=== PATIENT | female | born 1945 | race Caucasian/White ===

== ENCOUNTER 2020-03-07 10:03 | Day surgery (SDC) | payer MEDICARE, BC ==
[2020-03-05 09:55] VITALS: BMI 32.9
[~2020-03-07 10:03] MED LIST: HYDROmorphone 0.5 MG/0.5 ML SYRINGE IVP PRN; LACTATED RINGERS 1,000 ML IV SCH; Pre Op ABX Message 1 EACH MISC MISCELLANE ONE
[2020-03-07] MEDS ORDERED: LIDOCAINE 1% (10MG/ML) FOR IV START INTRADERMA ONE (10:30)
[2020-03-07] MEDS ORDERED: ONDANSETRON 4 MG/2 ML VIAL ONE (10:37)
[2020-03-07] MEDS ORDERED: DEXAMETHASONE SOD PHOSPHATE 10 MG/ML 1 ML VIAL IV ONE (10:39)
[2020-03-07 10:41] LABS: Basophils % (A) 0 %; Eosinophils # (A) 0.2 k/uL (0-0.7); Eosinophils % (A) 2 %; HCT 43.6 % (34.0-46.0); HGB 14.1 gm/dL (11.4-16.0); Lymphocytes # (A) 1.2 k/uL (1.0-4.8); Lymphocytes % (A) 14 %; MCH 31.3 pg (25.0-35.0); MCHC 32.4 g/dL (31.0-37.0); MCV 96.5 fL (80.0-100.0); Mean Platelet Volume 9.6; Monocytes # (A) 0.5 k/uL (0-1.0); Monocytes % (A) 6 %; Neutrophils # (A) 6.6 k/uL (1.3-7.7); Neutrophils % (A) 76 %; Platelet Count 163 k/uL (150-450); RBC 4.52 m/uL (3.80-5.40); RDW 13.1 % (11.5-15.5); WBC 8.6 k/uL (3.8-10.6)
[2020-03-07 10:54] LABS: African American GFR (CKD) >90 (>60 ml/min/1.73 sqM); Anion Gap 4 mmol/L; Blood Urea Nitrogen 15 mg/dL (7-17); Calcium 9.4 mg/dL (8.4-10.2); Carbon Dioxide 29 mmol/L (22-30); Chloride 106 mmol/L (98-107); Glucose 120 mg/dL (74-99); Non-African American GFR(CKD) 86 (>60 ml/min/1.73 sqM); Potassium 4.1 mmol/L (3.5-5.1); Sodium 139 mmol/L (137-145)
[2020-03-07] MEDS ORDERED: fentaNYL (PF) 50 MCG/ML 2 ML AMP ONE (11:09)
[2020-03-07] MEDS ORDERED: LIDOCAINE 1% INJ 10MG/ML (20 ML MDV) ONE (11:09)
[2020-03-07] MEDS ORDERED: PHENYLEPHRINE-0.9% NACL SYG 1 MG/10 ML SYRINGE ONE (11:09)
[2020-03-07] MEDS ORDERED: METOPROLOL TARTRATE 5 MG/5 ML VIAL IVP ONE (11:09)
[2020-03-07] MEDS ORDERED: HYDROmorphone (PF) 1 MG/ML ONE (11:09)
[2020-03-07] MEDS ORDERED: SUCCINYLCHOLINE CHLORIDE 100 MG/5 ML SYR IV ONE (11:09)
[2020-03-07] MEDS ORDERED: MIDAZOLAM 2 MG/2 ML VIAL ONE (11:09)
[2020-03-07] MEDS ORDERED: PROPOFOL 10 MG/ML 20 ML VIAL IV ONE (11:09)
[2020-03-07] MEDS ORDERED: ceFAZolin 1,000 MG VIAL ONE (11:09)
[2020-03-07] MEDS ORDERED: ePHEDrine SULFATE/0.9% NACL/PF 50 MG/5 ML SYRINGE IV ONE (11:09)
[2020-03-07] MEDS ORDERED: SODIUM CHLORIDE 0.9% 50 ML with ceFAZolin 2,000 MG IV ONE ×2 (11:16)
[2020-03-07 14:05] VITALS: TEMP 97.6
[2020-03-07 14:13] VITALS: RESP 16
[2020-03-07] MEDS ORDERED: HYDROcodone/APAP 10-325MG 1 EACH TAB PO ONE (15:05)
[2020-03-07] MEDS ORDERED: HYDROcodone/APAP 10-325MG 1 EACH TAB ONE (15:09)
[2020-03-07 15:24] VITALS: BP 137/22; PULSE 77
--- NOTE | 2020-03-08 02:54 | OP ---
OPERATIVE REPORT DATE OF SURGERY: March 07, 2020. SURGEON: Maurisio Cho MD PREOPERATIVE DIAGNOSES: 1. 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 2. Personal history of breast cancer. 3. Personal history of failed tissue product/industry consultant reconstruction, bilateral breasts. 4. Nonfunctional left breast tissue product/industry consultant. POSTOPERATIVE DIAGNOSES: 1. Acquired loss of breasts. 2. Personal history of breast cancer. 3. Personal history of bilateral mastectomy. 4. Personal history of bilateral failed tissue product/industry consultant breast reconstruction. 5. Nonfunctional left reconstructed breast tissue product/industry consultant. OPERATIVE PROCEDURES: 1. Removal of nonfunctional left reconstructed breast tissue product/industry consultant. 2. Revision left reconstructed breast. 3. Insertion left breast tissue product/industry consultant for left breast delayed reconstruction and subsequent outpatient expansion. 4. Revision of right reconstructed breast. 5. Insertion of right breast tissue product/industry consultant for delayed right breast reconstruction with subsequent outpatient expansion. 6. Implantation of reconstructive graft for right and left breast reconstruction, 300 square centimeters. 7. Modified rhomboid flap closure right mastectomy site wound, 77 square centimeters. OPERATIVE INDICATIONS: The patient is a 74-year-old female who had mastectomy and reconstructive procedure performed elsewhere over 2 years ago, complicated by postoperative loss of her right breast reconstruction and tissue product/industry consultant that required surgery, which was then complicated by the need for cardiac bypass procedures. The patient got through her complicated problems and recovered from her bypass surgery and was seen in the fall of 2018 for possible breast reconstruction or removal of nonfunctional left breast tissue product/industry consultant, which was still present. Ultimately, the patient decided she wanted reconstruction and then by the time she made this decision the COVID-19 pandemic had occurred and surgery was delayed due to its elective nature and she was then seen in followup in the office once the COVID restrictions had eased and decided she wanted to proceed with surgery. She required preoperative clearance due to multiple coexisting comorbidities and is here today for the surgery. The patient understands her situation is quite complicated in that there are potential risks and complications associated with all surgery, but especially here including hematoma, seroma, wound healing problems, postoperative infection, among others. The patient also understands there is significant deformities of both reconstructive breast that will need to be revised to optimize the result and even place expanders in the simplest fashion today. The patient has requested I perform the surgery. OPERATIVE PROCEDURE SUMMARY: The patient is seen in presurgical area, markings made, procedure reviewed and all questions answered. She was transported back to the operating room where she was placed in supine position. Following induction general tracheal anesthesia, the patient was prepped and draped in usual fashion. The surgery was initiated on the right side first outlining the large mastectomy scar. The scar was very large, thick, indurated and outlined so it could be directly excised. The scar was excised using a 10-blade scalpel, removing the scar tissue, underlying subcutaneous tissue that was also part of the scar. The scar was sent to pathology. This left a large open skin and subcutaneous defect measuring 11 x 7 square centimeters. It could not be directly approximated. This was anticipated preoperatively. The skin and subcutaneous tissue flaps were then elevated off the underlying muscle flap tissue. Extensive dissection was required to accomplish this due to the multiple contour irregularities and scars present. Once this was completed, hemostasis maintained with cautery. The pectoralis major muscle was identified. It was heavily scarred and the muscle flap was re- elevated identifying the lateral border of the muscle and then using cautery to gain entry into the potential plane between the pectoralis major and minor muscle. There was no potential plane at this point. It was scarred and dissection was performed with cautery to separate these layers creating a subpectoral major space. Inferiorly dissection continued to recruit all muscle fibers or fascial fibers where possible for anterior coverage including rectus abdominis muscle and fascia, external abdominal oblique muscle and fascia and lateral serratus anterior muscle and fascia. There were many tears within the tissue layers due to the thinness and scarring, but it was elevated. Hemostasis maintained with cautery. Site was packed open with moistened laparotomy sponges. Attention was turned towards the left side. The scar from the mastectomy was not as thick here. It was outlined in simple elliptical fashion directly excised with 10-blade scalpel and sent to pathology. Subcutaneous tissue was then divided. The muscle fascial layer was identified. Skin and subcutaneous tissue flaps were then elevated off the muscle fascial layer to release contour irregularities caused by heavy scarring from the patient's prior procedures. With this completed, the pectoralis major muscle was more easily identified although somewhat socked in with scar. Lateral border was identified. Incision made in this exposed product/industry consultant. Underneath, the excision was extended along the lateral and then border and inferiorly transversely sufficient size of product/industry consultant could be released. The product/industry consultant cavity was quite contracted. The product/industry consultant itself appeared intact, but had dark staining to it. The cavity was irrigated with saline. There was no blood or granulation tissue or unusual fluid. The cavity was not sufficient size for reconstruction as it had contracted around the product/industry consultant. Re-elevation of the muscle flap was performed with cauterization following the planes created by the prior surgery. Hemostasis maintained with cautery. Once sufficient sized submuscular pocket was created on the left and right side, this portion of surgery stopped. Irrigation was performed. Hemostasis remained excellent. The cavities were sized and minor adjustments made to obtain optimal symmetry. Tissue expanders were opened onto the field. Both expanders measured 500 mL from the Neonode, model 133SMX tissue product/industry consultant, reference number for both devices was [id number]. The serial number for the right-sided device was [id number] and the serial number for the left-sided device was [id number]. It was clear from the dissection, loss of tissue, heavy scarring and thinness of tissue, the patient would require reconstructive grafts at this point. Therefore SurgiMend reconstructive graft was opened on the field, thin and fenestrated, measuring 10 x 15 cm. They were revitalized with room temperature saline. Once ready, the grafts were placed in the reconstructive cavity on the right and left side and sutured just above the planned inframammary crease level on each side to available tissues using interrupted 3-0 Vicryl. This was completed for both sides. Expanders were now opened on the field. Each product/industry consultant was irrigated with saline. All air extracted. Expanders were inserted in the reconstructive cavity. The product/industry consultant stay tabs were secured to the chest wall using interrupted 3-0 Vicryl once each product/industry consultant was optimally positioned. With this completed, the expanders were then filled to a volume of 150 mL with 0.9 normal saline on each side. The SurgiMend was advanced in cephalad fashion essentially creating the inferior sling type reconstruction and the muscle flap advanced caudad overlapping the SurgiMend on each side and then also spanning any gaps where muscle was not present or also buttressing the muscle where extremely thin. The SurgiMend and muscle were then inset to each other using interrupted 3-0 Vicryl. Complete coverage of each product/industry consultant was obtained and 19 round Seb channel drains were inserted in each surgical field and brought out through separate stab incisions in the right and left lateral chest wall and sutured in place with 2-0 Prolene. The left-sided wound closure was relatively simple as there was available tissue in close proximity. The deep dermis was closed using inverted interrupted 4-0 Monocryl and then completed the skin closure with sally. On the right side, there was a significant loss of skin and subcutaneous tissue. It was not possible to directly close this wound. It measured 11 x 7 square centimeters. A modified rhomboid flap was created as there was adjacent redundant tissue. Once the flap was elevated first making incision with 10 blade scalpel and then using cauterization. Once completed, the site was irrigated. Hemostasis was excellent. The flap was inset approximating deep dermis using inverted and interrupted 4-0 Monocryl and then completing the superficial dermal and epidermis closure with salyl. Surgical field cleansed with saline, dried, postoperative bandage was placed using Kerlix squares, secured with paper tape then positioned a size 4 mammary support with additional gauze padding. The drains were connected to closed bulb suction and patent. The estimated blood loss was 100 mL. There were no complications. The final fill for each product/industry consultant was 150 mL bilaterally. The patient was extubated in the operating room, transferred to recovery room in good condition with stable vital signs. There were no complications. MMODL / IJN: [id number] /
== END 2020-03-07 16:05 | disposition home or self-care (01) ==
LOC: OR 10:03
PROVIDERS: ATTEND Plastic Surgery
DX: C50.912 Malignant neoplasm of unspecified site of left female breast (principal); Z45.811 Encounter for adjustment or removal of right breast implant; Z45.812 Encounter for adjustment or removal of left breast implant; L90.5 Scar conditions and fibrosis of skin; I08.0 Rheumatic disorders of both mitral and aortic valves; I11.9 Hypertensive heart disease without heart failure; I48.19 Other persistent atrial fibrillation; E78.2 Mixed hyperlipidemia; I25.10 Atherosclerotic heart disease of native coronary artery without angina pectoris; I73.9 Peripheral vascular disease, unspecified; M19.90 Unspecified osteoarthritis, unspecified site; G62.9 Polyneuropathy, unspecified; J44.9 Chronic obstructive pulmonary disease, unspecified; Z90.13 Acquired absence of bilateral breasts and nipples; Z88.8 Allergy status to other drugs, medicaments and biological substances; Z88.1 Allergy status to other antibiotic agents; Z98.890 Other specified postprocedural states; Z90.710 Acquired absence of both cervix and uterus; Z98.49 Cataract extraction status, unspecified eye; Z87.891 Personal history of nicotine dependence; Z95.2 Presence of prosthetic heart valve; Z86.19 Personal history of other infectious and parasitic diseases; Z95.1 Presence of aortocoronary bypass graft; Z88.5 Allergy status to narcotic agent; Z79.899 Other long term (current) drug therapy; Z79.01 Long term (current) use of anticoagulants; Z79.82 Long term (current) use of aspirin; Z79.810 Long term (current) use of selective estrogen receptor modulators (SERMs); Z79.891 Long term (current) use of opiate analgesic; Z97.2 Presence of dental prosthetic device (complete) (partial); Z90.49 Acquired absence of other specified parts of digestive tract; Z87.898 Personal history of other specified conditions; Z83.3 Family history of diabetes mellitus; Z82.49 Family history of ischemic heart disease and other diseases of the circulatory system; Z82.3 Family history of stroke
CPT/HCPCS: 11971; 19357; C5273; C5274; 80048; 85025; 88305

== ENCOUNTER 2020-12-22 11:29 | Emergency (ER) | payer MEDICARE, BC ==
[2020-12-22 12:20] VITALS: BP 116/72; PULSE 95; RESP 20; TEMP 98.6
--- NOTE | 2020-12-22 12:30 | ED ---
Eye Problem HPI - General Chief complaint: Eye Problems Stated complaint: lt eye injury Time Seen by Provider: 12/22/20 12:24 Source: patient Mode of arrival: wheelchair Limitations: no limitations - History of Present Illness Initial comments: 75-year-old male presents to emergency Department a chief complaint of left eye pain. Patient reports yesterday she was cutting the grass and a small piece of debris went in her left eye. States she was able to wash off any foreign bodies in the eye but now continues to have pain. States there is clear discharge and pain when she blinked and. She denies any periorbital edema or erythema. Does not wear contacts. Tetanus is up-to-date. Denies pain with extraocular movements. - Related Data Home Medications Medication Instructions Recorded Confirmed ALPRAZolam [Xanax] 1 mg PO BID 03/05/20 03/07/20 Anastrozole [Arimidex] 1 mg PO DAILY 03/05/20 03/07/20 Apixaban [Eliquis] 5 mg PO BID 03/05/20 03/07/20 Aspirin [Adult Low Dose Aspirin EC] 81 mg PO DAILY 03/05/20 03/07/20 Atorvastatin [Lipitor] 80 mg PO DAILY 03/05/20 03/07/20 Cholecalciferol [Vitamin D3 (25 1,000 unit PO DAILY 03/05/20 03/07/20 Mcg = 1000 Iu)] Ferrous Sulfate [Feosol] 325 mg PO DAILY 03/05/20 03/07/20 Fish Oil/Dha/Epa [Fish Oil 1,200 1 each PO DAILY 03/05/20 03/07/20 mg Fish Oil] Gabapentin 600 mg PO TID 03/05/20 03/07/20 HYDROcodone/APAP 10-325MG [Kerens 1 tab PO TID 03/05/20 03/07/20 10-325] Metoprolol Tartrate [Lopressor] 25 mg PO BID 03/05/20 03/07/20 Pramipexole Di-HCl [Mirapex] 0.5 mg PO HS 03/05/20 03/07/20 Sertraline HCl [Zoloft] 100 mg PO DAILY 03/05/20 03/07/20 Tiotropium 18 Mcg/Puff [Spiriva] 1 puff INHALATION DAILY PRN 03/05/20 03/07/20 Vitamin C With Zinc 1 tab PO DAILY 03/05/20 03/07/20 Allergies Allergy/AdvReac Type Severity Reaction Status Date / Time morphine Allergy Anaphylaxis Verified 12/22/20 12:20 Review of Systems ROS Statement: Those systems with pertinent positive or pertinent negative responses have been documented in the HPI. ROS Other: All systems not noted in ROS Statement are negative. Past Medical History Past Medical History: Atrial Fibrillation, Cancer, COPD, Hyperlipidemia, Hypertension, Mitral Valve Prolapse (MVP) Additional Past Medical History / Comment(s): lt breast cancer. rt groin blood clot after open heart surgery. periodic limb movement disorder History of Any Multi-Drug Resistant Organisms: MRSA Date of last positivie culture/infection: unknown MDRO Source:: lt chest area Past Surgical History: Bladder Surgery, Breast Surgery, Cholecystectomy, Coronary Bypass/CABG, Hysterectomy, Joint Replacement Additional Past Surgical History / Comment(s): breast augmentation. amadou mastectomy with saline implants amadou and removed, tissue gas pipe layer in place lt breast, (left breast with lymph nodes removed). OPen heart surgery with repair of mitral valve-05/18/19. joint replacment rt knee, cervical laminectomy. amadou cataract surgery, rt eye implant removed and replaced. bladder suspension. le ft leg surgery Past Anesthesia/Blood Transfusion Reactions: Previous Problems w/ Anesthesia Additional Past Anesthesia/Blood Transfusion Reaction / Comment(s): while in surgery leg movement Past Psychological History: Anxiety, Depression Smoking Status: Former smoker Past Alcohol Use History: None Reported Past Drug Use History: Marijuana - Past Family History Sister(s) Additional Family Medical History / Comment(s): 5 sisters all with cancer in their 50's all General Exam Limitations: no limitations General appearance: alert, in no apparent distress Head exam: Present: atraumatic, normocephalic, normal inspection Eye exam: Present: normal appearance, PERRL, EOMI, conjunctival injection (Left eye), other (Negative Real sign. No pain with extra ocular movements. Corneal abrasion noted at 11:00) Pupils: Present: normal accommodation, other (No foreign bodies detected) ENT exam: Present: normal exam, normal oropharynx, mucous membranes moist Neck exam: Present: normal inspection, full ROM. Absent: tenderness, lymphadenopathy Respiratory exam: Present: normal lung sounds bilaterally. Absent: respiratory distress, wheezes Cardiovascular Exam: Present: regular rate, normal rhythm, normal heart sounds Extremities exam: Present: normal inspection, full ROM. Absent: tenderness Back exam: Present: normal inspection, full ROM. Absent: tenderness Neurological exam: Present: alert, oriented X3, normal gait Psychiatric exam: Present: normal affect, normal mood Skin exam: Present: warm, dry, intact, normal color Course Vital Signs 12/22/20 12:17 Temperature 98.6 F Pulse Rate 95 Respiratory 20 Rate Blood Pressure 116/72 O2 Sat by Pulse 96 Oximetry Medical Decision Making - Medical Decision Making 75-year-old female presents to emergency Department with a chief complaint of left eye pain. On Physical examination, she has conjunctival injection. Once lamp exam reveals corneal abrasion at 11:00. Patient will be started on erythromycin. Tetanus is up-to-date. Does not wear contacts. Return parameters discussed patient was understanding and agreeable. Advised to follow-up with an weed eradicator if his symptoms do not improve. Case discussed with Dr. Gaston. Disposition Clinical Impression: Corneal abrasion, left Disposition: HOME SELF-CARE Condition: Stable Instructions (If sedation given, give patient instructions): Abrasion (ED) Additional Instructions: Please return to the Emergency Department if symptoms worsen or any other concerns. Follow up with an weed eradicator if her symptoms not improve. Take prescribed medication as directed. Is patient prescribed a controlled substance at d/c from ED?: No Referrals: Alex Ortega MD [Primary Care Provider] - 1-2 days Nayana Moreira MD [STAFF PHYSICIAN] - 1-2 days Time of Disposition: 13:13
[2020-12-22] MEDS: FLUORESCEIN STRIPS 1 MG STRIP LEFT EYE ONE (12:38)
[2020-12-22] MEDS: PROPARACAINE 0.5% OPHTH DROPS 15 ML BTL RIGHT EYE STA (12:38)
== END 2020-12-22 13:28 | disposition home or self-care (01) ==
LOC: EC 11:29
DX: S05.02XA Injury of conjunctiva and corneal abrasion without foreign body, left eye, initial encounter (principal); E78.5 Hyperlipidemia, unspecified; I10 Essential (primary) hypertension; J44.9 Chronic obstructive pulmonary disease, unspecified; I48.91 Unspecified atrial fibrillation; F32.9 Major depressive disorder, single episode, unspecified; F41.9 Anxiety disorder, unspecified; F12.90 Cannabis use, unspecified, uncomplicated; Z85.3 Personal history of malignant neoplasm of breast; Z87.891 Personal history of nicotine dependence; Z79.01 Long term (current) use of anticoagulants; Z79.82 Long term (current) use of aspirin; Z90.12 Acquired absence of left breast and nipple; Z95.1 Presence of aortocoronary bypass graft; Z79.51 Long term (current) use of inhaled steroids; W25.XXXA Contact with sharp glass, initial encounter
CPT/HCPCS: 99283

== ENCOUNTER → 2021-08-02 | Outpatient (CLI) | payer MEDICARE, BC ==
--- NOTE | 2021-08-03 03:35 | MR ---
EXAMINATION TYPE: MR tspine/lspine wo/w con DATE OF EXAM: 08/02/2021 COMPARISON: None HISTORY: Syrinx T6-T9, mid back pain. CONTRAST: Standard multiplanar, multisequence MRI departmental protocol images were obtained without contrast a nd with 9 mL intravenous Gadavist gadolinium contrast. The thoracic vertebra have normal alignment. There is some degenerative hypertrophic disc changes thr oughout the thoracic spine. There is no compression fracture. There is apparent old fusion surgery at C5-6 anteriorly. There is C4-5 mild disc herniation and spur formation with some spinal stenosis. There is a tiny syrinx in the thoracic spinal cord from T6 to T8. This measures 1 mm. There is no exp ansion. There is no thoracic spinal stenosis. There are small posterior disc bulging at T8-9 and T9-1 0 and T10-11. There is developmentally adequate spinal canal and no spinal stenosis. There is no thoracic paraspinal mass. There is no focal bone destruction. The lumbar vertebrae has fairly normal alignment. There is a few millimeter subluxation at L3-4 witho ut spinal stenosis. There is some degenerative disc space narrowing at L1-2 and L4-5. There is minima l disc bulging at L1-2 posteriorly. There is no significant lumbar spinal stenosis. There is no lumba r paraspinal mass. There is no compression fracture. I see no lumbar bony destructive process. There is no significant lumbar neural foraminal narrowing. Contrast images show no pathologic enhancement. IMPRESSION: There is a small syrinx of the thoracic spinal cord as above. Mild multilevel spondylotic changes. No spinal stenosis. No fracture. No evidence of spinal cord mass.
== END | disposition home or self-care (01) ==
LOC: RADMRIMAIN 14:43
PROVIDERS: ATTEND Physical Medicine & Rehabilitation
DX: M51.24 Other intervertebral disc displacement, thoracic region (principal); M51.36 Other intervertebral disc degeneration, lumbar region; M47.817 Spondylosis without myelopathy or radiculopathy, lumbosacral region; M50.221 Other cervical disc displacement at C4-C5 level
CPT/HCPCS: 72157; 72158; A9585

== ENCOUNTER 2022-10-06 10:44 | Day surgery (SDC) | payer MEDICARE, BC ==
[2022-10-02 11:32] VITALS: BMI 34.6
[~2022-10-06 10:44] MED LIST changes: +ACETAMINOPHEN TAB 500 MG TAB PO PRN; -HYDROmorphone 0.5 MG/0.5 ML SYRINGE IVP PRN; -LACTATED RINGERS 1,000 ML IV SCH; +LIDOCAINE 1% (10MG/ML) FOR IV START INTRADERMA PRN; +MELOXICAM 7.5 MG TAB PO PRN; +MIDAZOLAM 2 MG/2 ML VIAL IV PRN; +ONDANSETRON 4 MG/2 ML VIAL IVP PRN; -Pre Op ABX Message 1 EACH MISC MISCELLANE ONE; +TRANEXAMIC ACID IN NACL,ISO-OS 1,000 MG in SALINE 1 100ML.BAG IVPB PRN; +fentaNYL (PF) 50 MCG/ML 2 ML AMP IVP PRN
[2022-10-06] MEDS: LACTATED RINGERS 1,000 ML IV SCH ×3 (11:35→21:58)
[2022-10-06] MEDS: DEXAMETHASONE SOD PHOSPHATE 4 MG/ML 1 ML VIAL IV ONE ×2 (11:44→18:26)
[2022-10-06 11:48] LABS: Glucose,Whole Blood 108 mg/dL (70-110)
[2022-10-06] MEDS ORDERED: MIDAZOLAM 2 MG/2 ML VIAL IVP ONE (11:48)
[2022-10-06] MEDS ORDERED: NEOSTIGMINE 1 MG/ML 10 ML VIAL ONE (12:37)
[2022-10-06] MEDS ORDERED: TRANEXAMIC ACID IN NACL,ISO-OS 1,000 MG/100 ML BAG ONE (12:37)
[2022-10-06] MEDS ORDERED: GLYCOPYRROLATE 0.2 MG/ML 2 ML VIAL ONE (12:37)
[2022-10-06] MEDS ORDERED: KETAMINE 10 MG/ML 20 ML VIAL ONE (12:37)
[2022-10-06] MEDS ORDERED: LIDOCAINE 2% INJ 20 MG/ML (2 ML VIAL) ONE (12:37)
[2022-10-06] MEDS ORDERED: ROCURONIUM 10 MG/ML (5 ML VIAL) IV ONE (12:37)
[2022-10-06] MEDS ORDERED: PROPOFOL 10 MG/ML 20 ML VIAL IV ONE (12:37)
[2022-10-06] MEDS ORDERED: MIDAZOLAM 2 MG/2 ML VIAL ONE (12:37)
[2022-10-06] MEDS ORDERED: ROPIVACAINE 5 MG/ML 30 ML VIAL ONE (12:37)
[2022-10-06] MEDS ORDERED: fentaNYL (PF) 50 MCG/ML 2 ML AMP ONE (12:37)
[2022-10-06] MEDS ORDERED: SUCCINYLCHOLINE CHLORIDE 200 MG/10 ML VIAL IV ONE (12:37)
[2022-10-06] MEDS ORDERED: ceFAZolin 3,000 MG in SODIUM CHLORIDE 0.9% IRRIGATIO 3,000 ML IRRIGATION ONE (12:39)
--- NOTE | 2022-10-06 12:52 | P.ANPRN ---
Procedure Note - Anesthesia - Nerve Block Performed Left Chaim Single Date of Procedure: 10/06/22 Procedure Start Time: 11:56 Procedure Stop Time: 12:06 Location of Patient: PreOp Indication: Acute Post-Operative Pain, Requested by Surgeon Sedation Type: Sedate with meaningful contact maintained Preparation: Sterile Prep Position: Supine Catheter: None Needle Types: Pajunk Needle Gauge: 21 Ultrasound used to visualize needle placement: Yes Ultrasound used to observe medication spread: Yes Injectate: 0.5% Ropivacaine (see comment for volume) (15 mls) Blood Aspirated: No Pain Paresthesia on Injection Noted: No Resistance on Injection: Normal Image Stored and Saved: Yes Events: Uneventful and Well Tolerated
[2022-10-06] MEDS ORDERED: ROPIVACAINE 1,100 MG, SODIUM CHLORIDE 0.9% 500 ML 330 ML, EMPTY PAIN BALL 1 EACH MISCELLANE PRN ×2 (12:53)
--- NOTE | 2022-10-06 12:53 | P.ANPRN ---
Procedure Note - Anesthesia - Nerve Block Performed Left Adductor Canal Infusion Date of Procedure: 10/06/22 Procedure Start Time: 11:47 Procedure Stop Time: 11:55 Location of Patient: PreOp Indication: Acute Post-Operative Pain, Requested by Surgeon Sedation Type: Sedate with meaningful contact maintained Preparation: Sterile Prep Position: Supine Catheter: Indwelling Needle Types: On-Q Needle Gauge: 21 Ultrasound used to visualize needle placement: Yes Ultrasound used to observe medication spread: Yes Injectate: 0.5% Ropivacaine (see comment for volume) (15 mls) Blood Aspirated: No Pain Paresthesia on Injection Noted: No Resistance on Injection: Normal Image Stored and Saved: Yes Events: Uneventful and Well Tolerated
--- NOTE | 2022-10-06 14:43 | P.OP ---
Date of Procedure: 10/06/22 Procedure(s) Performed: PREOPERATIVE DIAGNOSIS: Left knee severe osteoarthritis genu varum POSTOPERATIVE DIAGNOSIS: Left knee severe osteoarthritis with genu varum OPERATION: Left knee cemented total replacement arthroplasty, robotic-assisted using Lam system from [employer]. ANESTHESIA: General and regional with IPAC and ACB ESTIMATED BLOOD LOSS: 100 ml. SLAG MOTOR OPERATOR: Misti Ford PA-C (assistance with: patient positioning, retraction, exposure, hemostasis, leg positioning, implantation, irrigation, closure, dressing) COMPLICATIONS: None apparent. COMPONENTS IMPLANTED: Triathlon knee components with anterior lipped tibial spacer INDICATIONS: Bobbi is a 77 year old female with a history of left knee osteoarthritis. The patient's knee is end-stage, and conservative management has failed. Preoperative status of the left knee is 15-to 100 range of motion, 15 degree of flexion contracture, and 10 degree at least partially correctable varus deformity. The operation of knee replacement with robotic assistance has been discussed at length in the office, as well as potential risks and complications. These are inclusive of, but not limited to: bleeding, infection, scarring, discomfort, blood vessel and nerve damage, need for further surgery, failure to relieve symptoms, persistence, recurrence, or worsening of problems, loosening, dislocation, wear, blood clot, pulmonary embolism, , gait dysfunction, stiffness, and other risks as discussed in the office. We also discussed the minimal risks of array placement with the performance of drill holes necessary for placement of the pins. The patient elects to proceed and the consent form has been signed. PROCEDURE: The patient was taken to the operating room and positioned on the operating room table in the supine position. Anesthesia was initiated. Care was taken to make sure that all pressure points were adequately padded. The operative left lower extremity was prepped and draped in the usual aseptic fashion using ChloraPrep. Ioban drape was used for the case and the patient received intravenous antibiotics within one hour of the incision. A pneumotourniquet and leg valencia were used for the case. The limb was exsanguinated with an Esmarch bandage and the tourniquet was inflated to 275 mmHg. Time-out was called confirming the patient's identity, side, procedure and administration of antibiotics and tranexamic acid. The incision was then created midline directly over the knee, carried down through skin and into the subcutaneous tissues and down to fascia. Full thickness subcutaneous medial flap was developed. Medial parapatellar arthrotomy was performed and the interior of the knee was inspected. There was end-stage osteoarthritis of the knee with a moderate to severe genu varum type deformity. The fat pad was excised and proximal medial release on the tibia was completed using meticulous dissection and a curved osteotome. Note was made of significant attrition of the anterior and significant degenerative appearance of the cruciate ligaments. The anterior cruciate ligament as well as the posterior cruciate ligament were taken down. The exposure was excellent. The knee was flexed 90 degrees and the patella was everted. 4 mm pins were placed in the medial epicondylectomy the femur and an optical array was attached for the Lam system. Similarly, another array was placed within the wound using 4 mm pins at the level of the tibial tubercle. The arrays were tightened and confirmed to be in good position based on the position of the camera. Hip center was taken, followed by double checking the femoral and tibial checkpoints prior to registering the femur and tibia respectively. Once an accurate register was accomplished, spurs were removed around the knee and any necessary soft tissue releases were performed. The knee was taken through range of motion with stress medially and laterally in extension. Once these spatial measurements were taken, stress was performed using curved osteotomes in the medial and lateral compartments with the knee at 90 of flexion. The extension and flexion spaces were then balanced according to these spatial measurements, by rotating and translating the planned femoral and tibial components in the coronal, sagittal, and axial planes until a satisfactory balance was obtained. Once the gap balancing adjustments were performed on the computer, the robotic arm on the Lam robot was used to create the tibial and femoral cuts. These cuts were performed without incident, and the cut fragments were then removed. Medial and lateral menisci were removed at this time, then the posterior capsule was cauterized and any residual loose soft tissue within the lateral posterior and medial aspects of the interior of the knee were removed. Patellar resurfacing was performed using a reamer. The size of the required patellar component was estimated and the patellar surface was then reamed down to a residual thickness which would recreate the grand traverse thickness with the component. The exact placement of the patellar component was adjusted for position based on preoperative x-rays and intraoperative findings. Trial components were then placed and the tibial component was allowed to self center, with care not to allow any significant internal rotation of the component. The position of this tibial trial was then marked. Confirmation of satisfactory soft tissue balance was confirmed based on the readings of the extension and flexion spaces and by kinematic testing of the knee manually. The latter showed excellent stability both medially and laterally, excellent alignment in the coronal plane, as well as excellent stability anteriorly and posteriorly with regard to tibial translation. There was no evidence of mid flexion instability. Trial components were removed and the cut surfaces of the bone were pulse lavaged thoroughly and dried. We planned for a CS liner and the tibia was prepared for a standard stemmed tibial Triathlon component. Cement was mixed on the back table and applied to the final components. Cement was then applied to the tibial surface and pressurized into the surface using finger pressurization technique. The tibial component was then applied and excess cement was removed after it was impacted securely and noted to be flush with the cut surface. In similar fashion, the cement was applied to the cut femoral surface, pressurized in using finger pressurization and the component was impacted into place. Excess cement was removed. The polyethylene spacer was then implanted and locked into position. The patellar component was then applied in similar technique and a patellar clamp was used to hold the patella in place as the cement hardened. Once the cement had fully hardened, the knee was reinspected. Any other cement extrusion was removed and final kinematic testing showed range of motion from 0 to 130 degrees with excellent stability, both medially and laterally, in flexion and extension, and appropriate alignment of the leg. Patellar tracking was excellent. The knee was then thoroughly pulse lavaged with normal saline. The tourniquet was deflated and hemostasis was obtained with electrocautery and IV tranexamic acid, 1 g given at the start of the operation and 1 g at the start of closure. Closure was with interrupted 0 Vicryl sutures in the fascia/capsule and supplemented with #2 Quill, 2-0 Vicryl suture was used for the subcutaneous tissues and 4-0 Quill for the skin. Cyanoacrylate and Optefoam were then applied. A lightly compressive dressing was applied using Webril and an Vel wrap. The patient was then transferred to stretcher and taken to the recovery room in stable condition. Sponge and needle counts were correct.
[2022-10-06] MEDS ORDERED: MAGNESIUM HYDROXIDE 2,400 MG/10 ML CUP PO PRN (15:17)
[2022-10-06] MEDS ORDERED: NALOXONE 0.4 MG/ML 1 ML VIAL IV PRN (15:17)
[2022-10-06] MEDS ORDERED: TEMAZEPAM 15 MG CAP PO PRN (15:17)
[2022-10-06] MEDS ORDERED: HYDROcodone/APAP 5-325MG 1 EACH TAB PO PRN (15:27)
[2022-10-06 15:38] LABS: Glucose,Whole Blood 166 mg/dL (70-110)
--- NOTE | 2022-10-06 15:50 | XR ---
EXAMINATION TYPE: XR knee limited LT DATE OF EXAM: 10/06/2022 CLINICAL HISTORY: Left knee pain and arthritis status post total knee replacement. TECHNIQUE: Portable AP and crosstable lateral views of the left knee are obtained immediately postop eratively. COMPARISON: CT left knee August 29, 2022 FINDINGS: Metallic hardware from total left knee arthroplasty is seen and appears satisfactory in al ignment and position. There is evidence of recent surgery with diffuse subcutaneous and soft tissue swelling noted. IMPRESSION: METALLIC HARDWARE FROM TOTAL LEFT KNEE ARTHROPLASTY IS SATISFACTORY IN ALIGNMENT.
[2022-10-06] MEDS: HYDROmorphone 0.5 MG/0.5 ML SYRINGE IVP PRN ×2 (15:56→16:20)
[2022-10-06] MEDS: HYDROcodone/APAP 5-325MG 1 EACH TAB PO PRN ×2 (18:33→23:43)
[2022-10-06] MEDS ORDERED: ASPIRIN 81 MG PO SCH (21:00)
[2022-10-06] MEDS ORDERED: SENNOSIDES-DOCUSATE SODIUM 1 EACH TAB PO SCH (21:00)
[2022-10-07] MEDS ORDERED: ATORVASTATIN 80 MG TAB PO SCH (00:15)
[2022-10-07] MEDS ORDERED: PRAMIPEXOLE 0.5 MG TAB PO SCH (00:15)
--- NOTE | 2022-10-07 00:34 | P.CONS ---
History of Present Illness - Reason for Consult Consult date: 10/06/22 post op medical management Requesting physician: Benitez Hartley - Chief Complaint left knee pain - History of Present Illness 77 year old female with afib on eliquis, hypertension , DM patient came in for scheduled left total knee arthroplasty due to severe osteoarthritis of the left knee, she tolerated procedure well, no observed immediate post op complications, tolerated PO intake , denies any chest pain or trouble breathing patient has history of afib on eliquis currently reports left knee pain is not well controlled and asking to increase her pain meds frequency , she is also on pain pump Review of Systems Pertinent positives as noted in HPI. All other systems were reviewed and are negative Past Medical History Past Medical History: Atrial Fibrillation, Cancer, COPD, Diabetes Mellitus, Hyperlipidemia, Hypertension, Mitral Valve Prolapse (MVP), Osteoarthritis (OA) Additional Past Medical History / Comment(s): hx skin & lt breast cancer., blood clot right groin after heart surgery., periodic limb movement disorder ., back and knee pain. History of Any Multi-Drug Resistant Organisms: MRSA Year Discovered:: unknown MDRO Source:: lt chest area Past Surgical History: Back Surgery, Bladder Surgery, Breast Surgery, Cholecystectomy, Hysterectomy, Joint Replacement Additional Past Surgical History / Comment(s): breast augmentation. amadou mastectomy with saline implants amadou and removed, tissue zigzag tunnel elastic operator in place lt breast, (left breast with lymph nodes removed). OPen heart surgery with repair of mitral valve-05/18/19, cervical laminectomy. amadou cataract surgery, rt eye implant removed and replaced., total right knee., bladder suspension. bladder suspension. left leg surgery Past Anesthesia/Blood Transfusion Reactions: Previous Problems w/ Anesthesia Additional Past Anesthesia/Blood Transfusion Reaction / Comm: leg movement while in surgery. Past Psychological History: Anxiety, Depression Smoking Status: Former smoker Past Alcohol Use History: None Reported Additional Past Alcohol Use History / Comment(s): quit smoking 2017, hx of 1ppd., smoked off and on since age 17. Past Drug Use History: Marijuana Additional Drug Use History / Comment(s): denies current marijuana use - Past Family History Sister(s) Additional Family Medical History / Comment(s): 5 sisters with cancer in their 50's Medications and Allergies Home Medications Medication Instructions Recorded Confirmed Type Anastrozole [Arimidex] 1 mg PO DAILY 03/05/20 10/06/22 History Apixaban [Eliquis] 5 mg PO BID 03/05/20 10/06/22 History Atorvastatin [Lipitor] 80 mg PO HS 03/05/20 10/06/22 History Gabapentin 600 mg PO TID 03/05/20 10/06/22 History HYDROcodone/APAP 10-325MG [[place] 1 tab PO TID 03/05/20 10/06/22 History 10-325] Metoprolol Tartrate [Lopressor] 25 mg PO BID 03/05/20 10/06/22 History Pramipexole Di-HCl [Mirapex] 0.5 mg PO HS 03/05/20 10/06/22 History Cyclobenzaprine [Flexeril] 10 mg PO TID 10/02/22 10/06/22 History Umeclidinium Brm/Vilanterol Tr 1 puff INHALATION DAILY PRN 10/02/22 10/06/22 History [Anoro Ellipta 62.5-25 Mcg INH] Allergies Allergy/AdvReac Type Severity Reaction Status Date / Time morphine Allergy Anaphylaxis Verified 10/06/22 11:04 metformin AdvReac Unknown Nausea & Verified 10/06/22 11:04 Vomiting & Diarrhea Physical Exam Vitals: Vital Signs Temp Pulse Pulse Resp BP BP Pulse Ox 10/06/22 17:15 75 16 156/71 100 10/06/22 17:00 80 16 163/71 99 10/06/22 16:45 80 16 172/68 99 10/06/22 16:29 75 16 150/67 92 L 10/06/22 16:14 73 16 170/67 96 10/06/22 15:59 69 16 152/67 97 10/06/22 15:44 72 16 151/74 99 10/06/22 15:29 77 16 140/67 97 10/06/22 15:14 97.7 F 70 16 138/65 98 10/06/22 12:25 77 18 131/71 94 L 10/06/22 12:20 75 18 141/65 99 10/06/22 11:20 98.1 F 101 H 20 151/78 95 Intake and Output 10/06/22 10/06/22 10/06/22 06:59 14:59 22:59 Intake Total 751 150 Output Total 100 Balance 651 150 Intake: IV 751 150 Output: Estimated Blood Loss 100 Other: Weight 93 kg Constitutional: No acute distress, conversant, pleasant Eyes: Anicteric sclerae, moist conjunctiva, Pupils equal round reactive to light ENMT: NC/AT Oropharynx clear, no erythema, or exudates Neck: Supple, no masses, or JVD No carotid bruits No thyromegaly Lungs: Clear to auscultation Clear to percussion Normal respiratory effort, no accessory muscle use Cardiovascular: Heart regular in rate and rhythm, No murmurs, gallops, or rubs No peripheral edema Abdominal: Soft Nontender, no guarding, rebound or rigidity Abdomen moving with respiration Normoactive bowel sounds No hepatomegaly, No splenomegaly No palpable mass No abdominal wall hernia noted Skin: Normal temperature, tone, texture, turgor No induration No subcutaneous nodules No rash, lesions No ulcers Extremities: surgical dressing left knee, dry intact clean, pain pump in place No digital cyanosis No clubbing Pedal pulses intact and symmetrical Radial pulses intact and symmetrical No calf tenderness Psychiatric: Alert and oriented to person, place and time Appropriate affect fair judgment Neuro Muscles Strength 5/5 in all 4 extremities with limited exam over left lower extremity due to surgery Sensation to light touch grossly present throughout Cranial nerves II-XII grossly intact Lymphatics: no palpable cervical or supraclavicular lymph nodes Results Labs: Abnormal Lab Results - Last 24 Hours (Table) 10/06/22 Range/Units 15:35 POC Glucose (mg/dL) 166 H (70-110) mg/dL Assessment and Plan Assessment: severe left knee osteoarthritis s/p left total knee arthroplasty POD zero pain control , increase norco to q4hr 2 tabs of 5-325 as needed for severe pain further management per primary team afib on eliquis currently on hold for surgery resume eliquis 5 mg po BID once cleared by surgery resume metoprolol 25 mg po 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
[2022-10-07] MEDS: GABAPENTIN 300 MG CAP PO SCH ×2 (00:39→08:33)
[2022-10-07] MEDS: METOPROLOL TARTRATE 25 MG TAB PO SCH ×2 (00:39→08:34)
[2022-10-07] MEDS: HYDROcodone/APAP 5-325MG 1 EACH TAB PO PRN ×2 (03:24→08:33)
[2022-10-07 06:31] LABS: Glucose,Whole Blood 122 mg/dL (70-110)
[2022-10-07] MEDS: INSULIN ASPART (NovoLOG) 100 UNIT/ML VIAL SQ SCH ×2 (06:45→11:46)
[2022-10-07] MEDS: LACTATED RINGERS 1,000 ML IV SCH ×3 (06:46→10:01)
--- NOTE | 2022-10-07 07:23 | P.PN ---
Progress Note - Text Progress Note Date: 10/07/22 The patient is doing well status post total knee replacement. Pain is well con trolled by a combination of local anesthetic infusion through the adductor canal catheter and oral analgesics. There are no signs of infection around the catheter skin entry site. The local anesthetic infusion will be continued as per protocol.
[2022-10-07] MEDS ORDERED: ANASTROZOLE 1 MG TAB PO SCH (09:00)
[2022-10-07] MEDS ORDERED: HYDROmorphone 1 MG/ML 1 ML SYRINGE IVP STA (09:04)
--- NOTE | 2022-10-07 09:09 | P.DS ---
Providers Expected date of discharge: 10/07/22 Attending physician: Benitez Hartley Consults: 10/06/22 15:17 Consult Physician Routine Consulting Provider: Haley Lazcano Consult Reason/Comments: Medical management- if pt stays the night. Do you want consulting provider notified?: Yes Primary care physician: Alex Ortega - Discharge Diagnosis(es) (1) Osteoarthritis of left knee Current Visit: Yes Status: Acute (2) S/P total knee arthroplasty Current Visit: Yes Status: Acute Hospital Course: This is a 77-year-old female with known history of degenerative arthritis of the left knee. The patient presented for evaluation as an outpatient. After discussion and consideration patient elects to proceed with total knee arthroplasty. The patient is seen preoperatively by Dr. Hartley and medically cleared for surgery by their primary care physician. Patient is [facility] on left for total knee arthroplasty. The procedure is performed without complication or sequelae. The patient is doing well postoperatively. Labs and vital signs are stable on day of discharge. On day of discharge patient's knee incision is healing well. There is minimal erythema. There is no drainage noted at this time. There is minimal soft ti ssue swelling to the knee. Patient has full foot and ankle motion without difficulty or pain. Calf is soft and nontender to palpation. Neurovascular status to the left lower extremity is intact. Patient is discharged home in good condition. Please see med rec for accurate list of home medications. Plan - Discharge Summary Discharge Rx Participant: Yes New Discharge Prescriptions: No Action Apixaban [Eliquis] 5 mg PO BID HYDROcodone/APAP 10-325MG [[place] 10-325] 1 tab PO TID Pramipexole Di-HCl [Mirapex] 0.5 mg PO HS Metoprolol Tartrate [Lopressor] 25 mg PO BID Atorvastatin [Lipitor] 80 mg PO HS Anastrozole [Arimidex] 1 mg PO DAILY Gabapentin 600 mg PO TID Umeclidinium Brm/Vilanterol Tr [Anoro Ellipta 62.5-25 Mcg INH] 1 puff INHALATION DAILY PRN PRN Reason: Shortness Of Breath Cyclobenzaprine [Flexeril] 10 mg PO TID Discharge Medication List Anastrozole [Arimidex] 1 mg PO DAILY 03/05/20 [History] Apixaban [Eliquis] 5 mg PO BID 03/05/20 [History] Atorvastatin [Lipitor] 80 mg PO HS 03/05/20 [History] Gabapentin 600 mg PO TID 03/05/20 [History] HYDROcodone/APAP 10-325MG [[place] 10-325] 1 tab PO TID 03/05/20 [History] Metoprolol Tartrate [Lopressor] 25 mg PO BID 03/05/20 [History] Pramipexole Di-HCl [Mirapex] 0.5 mg PO HS 03/05/20 [History] Cyclobenzaprine [Flexeril] 10 mg PO TID 10/02/22 [History] Umeclidinium Brm/Vilanterol Tr [Anoro Ellipta 62.5-25 Mcg INH] 1 puff INHALATION DAILY PRN 10/02/22 [History] Follow up Appointment(s)/Referral(s): Misti Ford, PAC [PHYSICIAN FORESTRY AID] - 2 Weeks Patient Instructions/Handouts: *Surgery [facility] - (Anesthesia) Discharge Instructions Outpatient Surgery, Knee Replacement (DC) Activity/Diet/Wound Care/Special Instructions: May bear wt as tolerated w walker. Keep stocking on for 48 hr. May shower after 48 hr. Keep Optifoam dressing intact 7 days. Resume Eliquis POD #1. Resume pain management per PCP- Pt has pain contract. Discharge Disposition: HOME WITH HOME HEALTH SERVICES
[2022-10-07] MEDS ORDERED: HYDROcodone/APAP 7.5-325MG 1 EACH TAB PO PRN ×2 (09:41)
[2022-10-07] MEDS ORDERED: HYDROmorphone 0.5 MG/0.5 ML SYRINGE IVP PRN ×3 (09:42)
[2022-10-07 10:57] LABS: Basophils # (A) 0.03 X 10*3/uL (0.00-0.10); Basophils % (A) 0.2 %; Eosinophils # (A) 0 X 10*3/uL (0.04-0.35); Eosinophils % (A) 0 %; HCT 39.2 % (37.2-46.3); HGB 12.5 g/dL (12.0-15.0); Immature Grans, Automated 0.6 %; Lymphocytes # (A) 1.43 X 10*3/uL (0.90-5.00); Lymphocytes % (A) 7.7 %; MCH 30.3 pg (27.0-32.0); MCHC 31.9 g/dL (32.0-37.0); MCV 95.1 fL (80.0-97.0); Mean Platelet Volume 12.5 fL (9.5-12.2); Monocytes # (A) 1.45 X 10*3/uL (0.20-1.00); Monocytes % (A) 7.9 %; NRBC Per 100 WBC 0 /100 WBCS (0.0-0.0); Neutrophils # (A) 15.45 X 10*3/uL (1.80-7.70); Neutrophils % (A) 83.6 %; Platelet Count 168 X 10*3/uL (140-440); RBC 4.12 X 10*6/uL (4.10-5.20); RDW 13.9 % (11.5-14.5); WBC 18.47 X 10*3/uL (4.50-10.00)
--- NOTE | 2022-10-07 11:25 | P.PN ---
Subjective Progress Note Date: 10/07/22 Hospital course: Patient is a very pleasant 77-year-old female with a past medical history of atrial fibrillation on anticoagulation with Eliquis, hypertension, hyperlipidemia, mitral valve prolapse status post repair, breast cancer status post bilateral mastectomy, [id number] diabetes mellitus, and COPD. She is currently admitted under orthopedic surgery team status post elective left total knee arthroplasty. We have been consulted for medical management throughout patient's hospitalization. Physical exam: Patient seen and fully evaluated at bedside this morning. Patient reports currently experiencing uncontrolled postoperative pain radiating 10 out of 10 throughout her left leg and knee. Order placed for Dilaudid 1 mg IVP 1 dose and Discussed uncontrolled postoperative pain with orthopedic surgery PA stated he will make adjustments to patient's current pain medication regimen. Patient denies having any other complaints at this time. Vital signs reviewed and stable. General: Nontoxic, no distress and appears stated age. Derm: Skin warm and dry, normal coloration for ethnicity. Head: Atraumatic, normocephalic and symmetric. Eyes: EOMs intact, no lid lag, and anicteric sclera Mouth: no lip lesions, mucus membranes moist Cardiovascular: regular rate and rhythm with normal S1S2, no murmur, positive posterior tibial pulses bilaterally, and cap refill < 2 seconds. Lungs: Respirations even, regular, and unlabored on room air. Lungs CTA amadou aterally, no rhonchi, no rales, no wheezing, and no accessory muscle usage. Abdominal: soft, nontender to palpation, no guarding, no appreciable organomegaly Ext: Movement and sensation intact. No gross muscle atrophy, no edema, no contractures. Postoperative dressings/nadia wrap in place to left lower extremity/left knee. Neuro: Speech clear, face symmetrical and CN II-XII grossly intact with no noted focal neuro deficits Psych: Alert and oriented to person, place, time, and situation. Appropriate and pleasant affect. Assessment and Plan of Care: Severe osteoarthritis of left knee Status post left total knee arthroplasty, postoperative day 1 Uncontrolled postoperative pain -Order placed for Dilaudid 1 mg IVP 1 dose and Discussed uncontrolled postoperative pain with orthopedic surgery PA stated he will make adjustments to patient's current pain medication regimen. -DVT prophylaxis, further pain management, 1/dressing care, weightbearing, and PT/OT per primary admitting orthopedic surgery team. -We will follow up on morning labs including CBC to evaluate postoperative hemoglobin once resulted. Paroxysmal atrial fibrillation -Recommend resuming anticoagulation with Eliquis once cleared by orthopedic surgery team to resume. Hypertension -Controlled with current antihypertensive medication regimen with systolic pressures ranging from 107-172 and diastolic pressures ranging from 55-85 throughout the past 24 hours. -Currently blood pressure 132/68 with heart rate of 90. -Recommending continuing daily medication regimen with metoprolol 25 mg twice daily. Hyperlipidemia -Recommend heart healthy diet and continuation of daily medication management with atorvastatin 80 mg nightly. Diabetes mellitus -Typically diet-controlled and blood glucose levels have been stable since hospitalization ranging from 108-166. Patient placed on glycemic protocol with [id number] glucose to be completed before meals at bedtime along with NovoLog sliding scale. Thank you for allowing us to participate in the care of this pleasant patient. Do not hesitate to contact us with questions. Someone can be reached from the [facility] hospitalist group all hours of the day at [phone] or via [email or web address]. Simba Gentile NP rendered care for this patient independently, reviewed the findings and plan as documented in the note above. I did not physically speak with or examine the patient on this date. Objective - Vital Signs Vital signs: Vital Signs Temp 98.0 F 10/07/22 02:00 Pulse 86 10/07/22 02:00 Resp 16 10/07/22 02:00 BP 107/55 10/07/22 02:00 Pulse Ox 97 10/07/22 02:00 FiO2 Intake & Output 10/06/22 10/07/22 10/07/22 18:59 06:59 18:59 Intake Total 901 Output Total 100 Balance 801 Weight 93 kg Intake: IV 901 Output: Estimated Blood Loss 100 Other: # Voids 2 - Labs CBC & Chem 7: 10/07/22 06:20 10/07/22 06:20 Labs: Abnormal Lab Results - Last 24 Hours (Table) 10/06/22 10/07/22 Range/Units 15:35 06:30 POC Glucose (mg/dL) 166 H 122 H (70-110) mg/dL
[2022-10-07 11:39] LABS: Glucose,Whole Blood 141 mg/dL (70-110)
[2022-10-07 11:49] LABS: African American GFR (CKD) 63.4 (60.0-200.0); Albumin 3.9 g/dL (3.8-4.9); Albumin/Globulin Ratio 1.77 (1.60-3.17); Anion Gap 12.9 mmol/L (10.00-18.00); BUN/Creat Ratio 16.6 Ratio (12.00-20.00); Blood Urea Nitrogen 16.6 mg/dL (9.0-27.0); Calcium 9.5 mg/dL (8.7-10.3); Carbon Dioxide 25.1 mmol/L (20.0-27.5); Globulin 2.2 g/dL (1.6-3.3); Non-African American GFR(CKD) 54.7 (60.0-200.0); Potassium 5.1 mmol/L (3.5-5.5); Total Bilirubin 0.4 mg/dL (0.30-1.20); Total Protein 6.1 g/dL (6.2-8.2)
[2022-10-07 14:09] VITALS: BP 136/76; PULSE 88; RESP 16; TEMP 97.7
== END 2022-10-07 16:35 | disposition home health service (06) ==
LOC: OR 10:44 → 4SSUR 15:06 → OR 10-07 16:35
PROVIDERS: ATTEND Orthopaedic Surgery
DX: M17.12 Unilateral primary osteoarthritis, left knee (principal); M21.162 Varus deformity, not elsewhere classified, left knee; G89.18 Other acute postprocedural pain; I51.9 Heart disease, unspecified; E78.5 Hyperlipidemia, unspecified; Z85.3 Personal history of malignant neoplasm of breast; Z86.718 Personal history of other venous thrombosis and embolism; Z96.651 Presence of right artificial knee joint; Z86.14 Personal history of Methicillin resistant Staphylococcus aureus infection; Z88.5 Allergy status to narcotic agent; Z88.2 Allergy status to sulfonamides; Z98.82 Breast implant status; Z82.49 Family history of ischemic heart disease and other diseases of the circulatory system; Z79.01 Long term (current) use of anticoagulants; Z87.891 Personal history of nicotine dependence; Z90.49 Acquired absence of other specified parts of digestive tract; Z98.890 Other specified postprocedural states; Z90.13 Acquired absence of bilateral breasts and nipples; Z79.899 Other long term (current) drug therapy; Z79.2 Long term (current) use of antibiotics
CPT/HCPCS: 27447; 64448; 64999; 76942; 97161; 80053; 85025; 73560; C1713; C1776; C1751; J2250; J1100; J0690 ×3; J2405; S0170; J1170 ×2; J2795; 88305; 88311

== ENCOUNTER → 2022-10-28 | Outpatient (CLI) | payer MEDICARE, BC ==
--- NOTE | 2022-10-28 15:34 | US ---
EXAMINATION TYPE: US venous doppler duplex LE LT DATE OF EXAM: 10/28/2022 2:59 PM COMPARISON: NONE CLINICAL HISTORY: LLE; i80.9. Knee replacement on 10/06/22. Pain. Lower leg redness and swelling. On blood thinners. SIDE PERFORMED: Left TECHNIQUE: The lower extremity deep venous system is examined utilizing real time linear array sonog morro with graded compression, doppler sonography and color-flow sonography. VESSELS IMAGED: Common Femoral Vein Deep Femoral Vein Greater Saphenous Vein * Femoral Vein Popliteal Vein Small Saphenous Vein * Proximal Calf Veins (* superficial vessels) Left Leg: Negative for DVT. Enlarged lymph nodes seen in groin with short axis measurement of larg est = 1.4 cm. IMPRESSION: No evidence for DVT. Prominent lymph nodes.
== END | disposition home or self-care (01) ==
LOC: RADUSWWP 14:34
PROVIDERS: ATTEND Orthopaedic Surgery
DX: M17.12 Unilateral primary osteoarthritis, left knee (principal); I80.9 Phlebitis and thrombophlebitis of unspecified site; Z47.1 Aftercare following joint replacement surgery

== ENCOUNTER 2023-05-14 10:24 | Inpatient (IN) | payer MEDICARE, BC ==
--- NOTE | 2023-05-14 10:43 | ED ---
General Adult HPI - General Chief complaint: Shortness of Breath Stated complaint: Dyspnea Time Seen by Provider: 05/14/23 10:28 Source: patient, RN notes reviewed Mode of arrival: EMS Limitations: no limitations - History of Present Illness Initial comments: Patient is a pleasant 77-year-old female presenting to the emergency department with dyspnea. Symptoms have been present for around a week. Patient does have mild cough and some mild shortness of breath. No leg pain or leg swelling. No chest pain. No palpitations. Patient does have history of atrial fibrillation. - Related Data Home Medications Medication Instructions Recorded Confirmed Anastrozole [Arimidex] 1 mg PO DAILY 03/05/20 10/06/22 Apixaban [Eliquis] 5 mg PO BID 03/05/20 10/06/22 Atorvastatin [Lipitor] 80 mg PO HS 03/05/20 10/06/22 Gabapentin 600 mg PO TID 03/05/20 10/06/22 HYDROcodone/APAP 10-325MG [[place] 1 tab PO TID 03/05/20 10/06/22 10-325] Metoprolol Tartrate [Lopressor] 25 mg PO BID 03/05/20 10/06/22 Pramipexole Di-HCl [Mirapex] 0.5 mg PO HS 03/05/20 10/06/22 Cyclobenzaprine [Flexeril] 10 mg PO TID 10/02/22 10/06/22 Umeclidinium Brm/Vilanterol Tr 1 puff INHALATION DAILY PRN 10/02/22 10/06/22 [Anoro Ellipta 62.5-25 Mcg INH] Previous Rx's Medication Instructions Recorded Docusate [Colace] 100 mg PO BID #60 capsule 10/07/22 oxyCODONE-APAP 7.5-325MG [Percocet 1 tab PO Q4HR PRN #42 tab 10/07/22 7.5-325 mg] Allergies Allergy/AdvReac Type Severity Reaction Status Date / Time morphine Allergy Anaphylaxis Verified 05/14/23 12:33 metformin AdvReac Unknown Nausea & Verified 05/14/23 12:33 Vomiting & Diarrhea Review of Systems ROS Statement: Those systems with pertinent positive or pertinent negative responses have been documented in the HPI. ROS Other: All systems not noted in ROS Statement are negative. Constitutional: Denies: fever Eyes: Denies: eye pain ENT: Denies: ear pain Respiratory: Reports: as per HPI, cough, dyspnea Cardiovascular: Denies: chest pain, palpitations Endocrine: Denies: fatigue Gastrointestinal: Denies: abdominal pain Genitourinary: Denies: dysuria Musculoskeletal: Denies: back pain Past Medical History Past Medical History: Atrial Fibrillation, Cancer, COPD, Hyperlipidemia, Hypertension, Mitral Valve Prolapse (MVP) Additional Past Medical History / Comment(s): lt breast cancer. rt groin blood clot after open heart surgery. periodic limb movement disorder History of Any Multi-Drug Resistant Organisms: MRSA Date of last positivie culture/infection: unknown MDRO Source:: lt chest area Past Surgical History: Bladder Surgery, Breast Surgery, Cholecystectomy, Coronary Bypass/CABG, Hysterectomy, Joint Replacement Additional Past Surgical History / Comment(s): breast augmentation. amadou mas tectomy with saline implants amadou and removed, tissue educational/development assistant in place lt breast, (left breast with lymph nodes removed). OPen heart surgery with repair of mitral valve-05/18/19. joint replacment rt knee, cervical laminectomy. amadou cataract surgery, rt eye implant removed and replaced. bladder suspension. left leg surgery Past Anesthesia/Blood Transfusion Reactions: Previous Problems w/ Anesthesia Additional Past Anesthesia/Blood Transfusion Reaction / Comment(s): while in surgery leg movement Past Psychological History: Anxiety, Depression Smoking Status: Former smoker Past Alcohol Use History: None Reported Past Drug Use History: Marijuana - Past Family History Sister(s) Additional Family Medical History / Comment(s): 5 sisters with cancer in their 50's General Exam Limitations: no limitations General appearance: alert, in no apparent distress Head exam: Present: normocephalic Eye exam: Present: normal appearance Neck exam: Present: normal inspection Respiratory exam: Present: wheezes (Mild expiratory wheeze). Absent: respiratory distress Cardiovascular Exam: Present: tachycardia, irregular rhythm Expanded Peripheral pulses: 2+: Radial (R), Radial (L), Dorsalis Pedis (R), Dorsalis Pedis (L) GI/Abdominal exam: Present: soft. Absent: tenderness Extremities exam: Present: normal inspection. Absent: pedal edema, calf tenderness Neurological exam: Present: alert Psychiatric exam: Present: normal affect, normal mood Skin exam: Present: normal color Course Vital Signs 05/14/23 05/14/23 05/14/23 10:29 10:32 10:42 Temperature 98.0 F Pulse Rate 155 H Respiratory 20 22 Rate Blood Pressure 106/90 O2 Sat by Pulse 91 L 92 L Oximetry 05/14/23 05/14/23 05/14/23 11:00 11:35 12:00 Temperature 97.9 F Pulse Rate 152 H 130 H 102 H Respiratory 33 H 20 18 Rate Blood Pressure 115/76 138/64 138/64 O2 Sat by Pulse 97 98 94 L Oximetry EKG Findings - EKG Results: EKG: interpreted by MAHNAZD, normal axis, normal QRS, normal ST/T EKG shows: tachycardia, atrial fibrillation Medical Decision Making - Medical Decision Making Was pt. sent in by a medical professional or institution (, PA, TOOL CRIB LEAD, urgent care, hospital, or shelter...) When possible be specific @ -Patient was sent by urgent care Did you speak to anyone other than the patient for history (EMS, parent, family, police, friend...)? What history was obtained from this source @ -No Did you review nursing and triage notes (agree or disagree)? Why? @ -I reviewed and agree with nursing and triage notes Were old charts reviewed (outside hosp., previous admission, EMS record, old EKG, old radiological studies, urgent care reports/EKG's, shelter records)? Report findings @ -Previous chest x-ray reviewed Differential Diagnosis (chest pain, altered mental status, abdominal pain women, abdominal pain men, vaginal bleeding, weakness, fever, dyspnea, syncope, headache, dizziness, GI bleed, back pain, seizure, CVA, palpatations, mental health, musculoskeletal)? @ -Differential Dyspnea: Coronary syndrome, arrhythmia, tamponade, asthma, COPD, pulmonary embolism, pneumonia, pneumothorax, pulmonary effusion, anaphylaxis, diabetic ketoacidosis, flailed chest, pulmonary contusion, diaphragmatic rupture, anemia, neur omuscular, this is not meant to be an all-inclusive list. EKG interpreted by me (3pts min.). @ -As above X-rays interpreted by me (1pt min.). @ -Chest x-ray without acute process. There is mild chronic changes. CT interpreted by me (1pt min.). @ -None done U/S interpreted by me (1pt. min.). @ -None done What testing was considered but not performed or refused? (CT, X-rays, U/S, labs)? Why? @ -None What meds were considered but not given or refused? Why? @ -None Did you discuss the management of the patient with other professionals (professionals i.e. , PA, TOOL CRIB LEAD, lab, RT, psych nurse, director social, rn appeals, teacher, fire management officer, telephonic nurse case manager)? Give summary @ -Case was discussed with practitioner Simba, who will admit [facility] group, who will admit [facility] call. Was smoking cessation discussed for >3mins.? @ -No Was critical care preformed (if so, how long)? @ -33 minutes per care time Were there social determinants of health that impacted care today? How? (Homelessness, low income, unemployed, alcoholism, drug addiction, transportation, low edu. Level, literacy, decrease access to med. care, group home, rehab)? @ -No Was there de-escalation of care discussed even if they declined (Discuss DNR or withdrawal of care, Hospice)? DNR status @ -No What co-morbidities impacted this encounter? (DM, HTN, Smoking, COPD, CAD, Ca ncer, CVA, ARF, Chemo, Hep., AIDS, mental health diagnosis, sleep apnea, morbid obesity)? @ -None Was patient admitted / discharged? Hospital course, mention meds given and route, prescriptions, significant lab abnormalities, going to OR and other pertinent info. @ -Patient reevaluated and resting comfortably in bed. Heart rate did improve to around 100 and me junk back to 160. Patient is updated on results and plan. Patient will be admitted. Admission orders written. Card ALLERGY will be placed on consult. Undiagnosed new problem with uncertain prognosis? @ -No Drug Therapy requiring intensive monitoring for toxicity (Heparin, Nitro, Insulin, Cardizem)? @ -atient placed on Cardizem drip that when he monitoring Were any procedures done? @ -No Diagnosis/symptom? @ -A. fib with RVR Acute, or Chronic, or Acute on Chronic? @ -Acute Uncomplicated (without systemic symptoms) or Complicated (systemic symptoms)? @ -default Side effects of treatment? @ -No Exacerbation, Progression, or Severe Exacerbation? @ -No Poses a threat to life or bodily function? How? (Chest pain, [place], [place], pneumonia, PE, COPD, DKA, ARF, appy, cholecystitis, CVA, Diverticulitis, Homicidal, Suicidal, threat to staff... and all critical care pts) @ -No - Lab Data Result diagrams: 05/14/23 10:40 05/14/23 10:40 Lab Results 05/14/23 05/14/23 05/14/23 Range/Units 10:40 10:40 10:40 WBC 12.6 H (3.8-10.6) k/uL RBC 4.25 (3.80-5.40) m/uL Hgb 13.3 (11.4-16.0) gm/dL Hct 39.5 (34.0-46.0) % MCV 93.0 (80.0-100.0) fL MCH 31.2 (25.0-35.0) pg MCHC 33.6 (31.0-37.0) g/dL RDW 14.2 (11.5-15.5) % Plt Count 183 (150-450) k/uL MPV 10.6 Neutrophils % 84 % Lymphocytes % 8 % Monocytes % 6 % Eosinophils % 0 % Basophils % 0 % Neutrophils # 10.6 H (1.3-7.7) k/uL Lymphocytes # 1.1 (1.0-4.8) k/uL Monocytes # 0.8 (0-1.0) k/uL Eosinophils # 0.0 (0-0.7) k/uL Basophils # 0.0 (0-0.2) k/uL PT 10.7 (10.0-12.5) sec INR 1.0 (<1.2) APTT 28.6 (22.0-30.0) sec Sodium 134 L (137-145) mmol/L Potassium 4.0 (3.5-5.1) mmol/L Chloride 97 L (98-107) mmol/L Carbon Dioxide 26 (22-30) mmol/L Anion Gap 11 mmol/L BUN 11 (7-17) mg/dL Creatinine 0.64 (0.52-1.04) mg/dL Est GFR (CKD-EPI)AfAm >90 (>60 ml/min/1.73 sqM) Est GFR (CKD-EPI)NonAf 87 (>60 ml/min/1.73 sqM) Glucose 153 H (74-99) mg/dL Calcium 9.2 (8.4-10.2) mg/dL Magnesium 1.9 (1.6-2.3) mg/dL Total Bilirubin 0.8 (0.2-1.3) mg/dL AST 20 (14-36) U/L ALT 15 (4-34) U/L Alkaline Phosphatase 137 H (38-126) U/L Troponin I (0.000-0.034) ng/mL NT-Pro-B Natriuret Pep 760 pg/mL Total Protein 6.5 (6.3-8.2) g/dL Albumin 3.4 L (3.5-5.0) g/dL TSH 0.618 (0.465-4.680) mIU/L Influenza Type A (PCR) (Not Detectd) Influenza Type B (PCR) (Not Detectd) RSV (PCR) (Not Detectd) SARS-CoV-2 (PCR) (Not Detectd) 05/14/23 05/14/23 Range/Units 10:40 10:41 WBC (3.8-10.6) k/uL RBC (3.80-5.40) m/uL Hgb (11.4-16.0) gm/dL Hct (34.0-46.0) % MCV (80.0-100.0) fL MCH (25.0-35.0) pg MCHC (31.0-37.0) g/dL RDW (11.5-15.5) % Plt Count (150-450) k/uL MPV Neutrophils % % Lymphocytes % % Monocytes % % Eosinophils % % Basophils % % Neutrophils # (1.3-7.7) k/uL Lymphocytes # (1.0-4.8) k/uL Monocytes # (0-1.0) k/uL Eosinophils # (0-0.7) k/uL Basophils # (0-0.2) k/uL PT (10.0-12.5) sec INR (<1.2) APTT (22.0-30.0) sec Sodium (137-145) mmol/L Potassium (3.5-5.1) mmol/L Chloride (98-107) mmol/L Carbon Dioxide (22-30) mmol/L Anion Gap mmol/L BUN (7-17) mg/dL Creatinine (0.52-1.04) mg/dL Est GFR (CKD-EPI)AfAm (>60 ml/min/1.73 sqM) Est GFR (CKD-EPI)NonAf (>60 ml/min/1.73 sqM) Glucose (74-99) mg/dL Calcium (8.4-10.2) mg/dL Magnesium (1.6-2.3) mg/dL Total Bilirubin (0.2-1.3) mg/dL AST (14-36) U/L ALT (4-34) U/L Alkaline Phosphatase (38-126) U/L Troponin I <0.012 (0.000-0.034) ng/mL NT-Pro-B Natriuret Pep pg/mL Total Protein (6.3-8.2) g/dL Albumin (3.5-5.0) g/dL TSH (0.465-4.680) mIU/L Influenza Type A (PCR) Not Detected (Not Detectd) Influenza Type B (PCR) Not Detected (Not Detectd) RSV (PCR) Not Detected (Not Detectd) SARS-CoV-2 (PCR) Not Detected (Not Detectd) Critical Care Time Critical Care Time: Yes Total Critical Care Time: 33 Disposition Clinical Impression: Atrial fibrillation with RVR Disposition: ADMITTED IP TO THIS HOSP Is patient prescribed a controlled substance at d/c from ED?: No Referrals: None,Stated [REFERRING] - 1-2 days Time of Disposition: 12:39
[2023-05-14] MEDS: DILTIAZEM 125 MG in SODIUM CHLORIDE 0.9% 100 ML IV SCH (10:57)
--- NOTE | 2023-05-14 11:06 | XR ---
EXAMINATION TYPE: XR chest 1V portable DATE OF EXAM: 05/14/2023 10:57 AM COMPARISON: Chest radiographs from 07/22/2011 TECHNIQUE: XR chest 1V portable Portable AP radiograph of the chest. CLINICAL INDICATION:Female, 77 years old with history of dysrhythmia; FINDINGS: Lungs/Pleura: There is no evidence of pleural effusion, focal consolidation, or pneumothorax. Pulmonary vascularity: Unremarkable. Heart/mediastinum: Cardiomediastinal silhouette is unremarkable. Atherosclerotic calcifications are seen in the aorta. Musculoskeletal: No acute osseous pathology. Midline sternotomy wires are noted. IMPRESSION: No acute cardiopulmonary disease/process.
[2023-05-14 11:11] LABS: Partial Thromboplastin Time 28.6 sec (22.0-30.0); Prothrombin Time 10.7 sec (10.0-12.5)
[2023-05-14 11:15] LABS: ALT 15 U/L (4-34); AST 20 U/L (14-36); African American GFR (CKD) >90 (>60 ml/min/1.73 sqM); Albumin 3.4 g/dL (3.5-5.0); Alkaline Phosphatase 137 U/L (38-126); Anion Gap 11 mmol/L; Blood Urea Nitrogen 11 mg/dL (7-17); Calcium 9.2 mg/dL (8.4-10.2); Carbon Dioxide 26 mmol/L (22-30); Chloride 97 mmol/L (98-107); Glucose 153 mg/dL (74-99); Magnesium 1.9 mg/dL (1.6-2.3); Non-African American GFR(CKD) 87 (>60 ml/min/1.73 sqM); Sodium 134 mmol/L (137-145); Total Bilirubin 0.8 mg/dL (0.2-1.3); Total Protein 6.5 g/dL (6.3-8.2)
[2023-05-14 11:24] LABS: NT-Pro-B-Type Natriuretic Pept 760 pg/mL
[2023-05-14 11:39] LABS: Basophils % (A) 0 %; Eosinophils % (A) 0 %; HCT 39.5 % (34.0-46.0); HGB 13.3 gm/dL (11.4-16.0); Lymphocytes # (A) 1.1 k/uL (1.0-4.8); Lymphocytes % (A) 8 %; MCH 31.2 pg (25.0-35.0); MCHC 33.6 g/dL (31.0-37.0); Mean Platelet Volume 10.6; Monocytes # (A) 0.8 k/uL (0-1.0); Monocytes % (A) 6 %; Neutrophils # (A) 10.6 k/uL (1.3-7.7); Neutrophils % (A) 84 %; Platelet Count 183 k/uL (150-450); RBC 4.25 m/uL (3.80-5.40); RDW 14.2 % (11.5-15.5); WBC 12.6 k/uL (3.8-10.6)
--- NOTE | 2023-05-14 12:32 | P.HPIM ---
History of Present Illness H&P Date: 05/14/23 History of Presenting Illness: Patient is a very pleasant 77-year-old female with a past medical history of CAD status post CABG, paroxysmal atrial fibrillation on anticoagulation with Eliquis and follows with office manager executive assistant Dr. Palencia, hypertension, hyperlipidemia, COPD, severe mitral valve prolapse status post repair, and breast cancer status post bilateral mastectomy on Arimidex. She presented to the emergency department with a chief complaint of shortness of breath. Patient reports last Thursday she came down with an upper respiratory infection with cough, sinus congestion and drainage, fevers, chills, and significant fatigue. Patient reports her upper respiratory symptoms have significantly improved however her shortness of breath progressively worsened. Patient reports since Thursday she has been too ill to take any of her medications including her Eliquis and metoprolol, so she has missed a total of 6 days of her medications. Patient does however report taking her medications this morning prior to coming to the emergency department. She currently denies having any dizziness, lightheadedness, changes in vision or hearing, chest pain or palpitations, abdominal pain, nausea, vomiting, or experiencing any numbness/tingling/weakness/increased swelling in her lower extremities. Patient underwent full evaluation in the emergency department. Upon arrival patient found to have significant tachycardia with vital signs as follows blood pressure 106/90, heart rate 155, respiratory rate 20, temp 98.0F, SpO2 of 91% on room air. EKG completed showing atrial fibrillation with RVR at 149 bpm upon personal review and interpretation. Labs completed and reviewed. CBC showing leukocytosis with WBC count of 12.6. Coagulation profile normal findings. BMP revealing mild hypochloremic hyponatremia with sodium of 134 and chloride of 97 otherwise normal findings. Liver profile showing slightly elevated alkaline phosphatase of 137 otherwise normal findings. Magnesium 1.9. Troponin less than 0.012. ProBNP 760. TSH normal findings at 0.618. Influenza A, influenza B, RSV, and Covid PCR were all negative. Chest x-ray reviewed and is negative for acute cardiopulmonary process. Patient was started on Cardizem infusion and admitted under our services with consultation to cardiology. Review of systems: Pertinent positives and negatives as discussed in HPI, a complete review of systems was performed and all other systems are negative. Physical exam: Vital signs reviewed and stable. General: Nontoxic, no distress and appears stated age. Derm: Skin warm and dry, normal coloration for ethnicity. Head: Atraumatic, normocephalic and symmetric. Eyes: EOMs intact, no lid lag, and anicteric sclera Mouth: no lip lesions, mucus membranes moist Cardiovascular: Irregularly irregular with rapid rate, positive posterior tibial pulses bilaterally, and cap refill < 2 seconds. Lungs: Respirations even, regular, and unlabored on room air. Lungs CTA bilaterally, no rhonchi, no rales, no wheezing, and no accessory muscle usage. Abdominal: soft, nontender to palpation, no guarding, no appreciable organomegaly Ext: ROM intact. No gross muscle atrophy, no edema, no contractures Neuro: Speech clear, face symmetrical and CN II-XII grossly intact with no noted focal neuro deficits Psych: Alert and oriented to person, place, time, and situation. Appropriate and pleasant affect. Assessment and Plan of Care: Atrial fibrillation with RVR Shortness of breath History of CAD status post CABG Hypertension Hyperlipidemia History of MVP status post repair -Order placed for Lopressor 2.5 mg IVP every 5 minutes 2 doses to assist with rate control -Continue Cardizem infusion and titrate up to 15 mg/hr for a goal heart rate of 80-100 -Increase patient's home metoprolol dose to 50 mg twice daily. -Resume patient's home anticoagulant, Eliquis 5 mg twice daily -Shortness of breath is likely secondary to A. fib with RVR, however will place order for CT PE rule out pulmonary emboli secondary to patient's reports of missed Eliquis x 6 days. -Patient to remain on Continuous Telemetry monitoring -Cardiac diet, NPO at midnight -Echocardiogram -Labs completed and reviewed. Troponin negative at less than 0.012. ProBNP 760. TSH normal findings is 0.620. Electrolytes also showing no significant abnormalities with sodium 134, chloride 97, calcium 9.2, and magnesium 1.9. History of breast cancer status post bilateral mastectomy -Continue daily medication regimen with Arimidex 1 mg daily. The patient is admitted with an anticipated greater than 2 midnight stay for evaluation of atrial fibrillation with RVR CODE STATUS: Full code DVT prophylaxis: Eliquis Discussed with: Patient, RN, and ED physician Anticipated discharge date: Clinical course to determine Anticipated discharge place: Home Patient was seen independently by Nurse Practitioner. This document was prepared using Tavern dictation software. Please allow for errors in special agent while rare they do occur. Past Medical History Past Medical History: Atrial Fibrillation, Cancer, COPD, Hyperlipidemia, Hypertension, Mitral Valve Prolapse (MVP) Additional Past Medical History / Comment(s): lt breast cancer. rt groin blood clot after open heart surgery. periodic limb movement disorder History of Any Multi-Drug Resistant Organisms: MRSA Date of last positivie culture/infection: unknown MDRO Source:: lt chest area Past Surgical History: Bladder Surgery, Breast Surgery, Cholecystectomy, C oronary Bypass/CABG, Hysterectomy, Joint Replacement Additional Past Surgical History / Comment(s): breast augmentation. amadou mastectomy with saline implants amadou and removed, tissue suture polisher in place lt breast, (left breast with lymph nodes removed). OPen heart surgery with repair of mitral valve-05/18/19. joint replacment rt knee, cervical laminectomy. amadou cataract surgery, rt eye implant removed and replaced. bladder suspension. left leg surgery Past Anesthesia/Blood Transfusion Reactions: Previous Problems w/ Anesthesia Additional Past Anesthesia/Blood Transfusion Reaction / Comment(s): while in surgery leg movement Past Psychological History: Anxiety, Depression Smoking Status: Former smoker Past Alcohol Use History: None Reported Past Drug Use History: Marijuana - Past Family History Sister(s) Additional Family Medical History / Comment(s): 5 sisters with cancer in their 50's Medications and Allergies Home Medications Medication Instructions Recorded Confirmed Type Anastrozole [Arimidex] 1 mg PO DAILY 03/05/20 05/14/23 History Apixaban [Eliquis] 5 mg PO BID 03/05/20 05/14/23 History Atorvastatin [Lipitor] 80 mg PO HS 03/05/20 05/14/23 History Gabapentin 600 mg PO TID 03/05/20 05/14/23 History HYDROcodone/APAP 10-325MG [[place] 1 tab PO TID 03/05/20 05/14/23 History 10-325] Metoprolol Tartrate [Lopressor] 25 mg PO BID 03/05/20 05/14/23 History Pramipexole Di-HCl [Mirapex] 0.5 mg PO BID 03/05/20 05/14/23 History Cyclobenzaprine [Flexeril] 10 mg PO TID 10/02/22 05/14/23 History Allergies Allergy/AdvReac Type Severity Reaction Status Date / Time morphine Allergy Anaphylaxis Verified 05/14/23 12:33 metformin AdvReac Unknown Nausea & Verified 05/14/23 12:33 Vomiting & Diarrhea Physical Exam Vitals: Vital Signs Temp Pulse Resp BP Pulse Ox 05/14/23 12:00 97.9 F 102 H 18 138/64 94 L 05/14/23 11:35 130 H 20 138/64 98 05/14/23 11:00 152 H 33 H 115/76 97 05/14/23 10:42 22 05/14/23 10:32 98.0 F 155 H 20 106/90 92 L 05/14/23 10:29 91 L Intake and Output 05/13/23 05/14/23 05/14/23 22:59 06:59 14:59 Other: Weight 84.368 kg Results CBC & Chem 7: 05/14/23 10:40 05/14/23 10:40 Labs: Abnormal Lab Results - Last 24 Hours (Table) 05/14/23 05/14/23 Range/Units 10:40 10:40 WBC 12.6 H (3.8-10.6) k/uL Neutrophils # 10.6 H (1.3-7.7) k/uL Sodium 134 L (137-145) mmol/L Chloride 97 L (98-107) mmol/L Glucose 153 H (74-99) mg/dL Alkaline Phosphatase 137 H (38-126) U/L Albumin 3.4 L (3.5-5.0) g/dL
[2023-05-14] MEDS ORDERED: NALOXONE 0.4 MG/ML 1 ML VIAL IV PRN (12:41)
[2023-05-14 13:05] LABS: T4, Free (Free Thyroxine) 1.99 ng/dL (0.78-2.19)
[2023-05-14] MEDS: METOPROLOL TARTRATE 5 MG/5 ML VIAL IVP SCH ×4 (13:34→14:19)
--- NOTE | 2023-05-14 15:51 | CT ---
EXAMINATION TYPE: CT chest angio for PE CT DLP: 316.7 mGycm, Automated exposure control for dose reduction was used. DATE OF EXAM: 05/14/2023 3:36 PM COMPARISON: . Chest radiograph from same day. CT chest 07/22/2011 CLINICAL INDICATION:Female, 77 years old with history of Shortness of breath, tachycardia, and hypoxi a; difficult in breathing, tachycardia, cardiac hx TECHNIQUE/CONTRAST: CTA scan of the thorax is performed with IV Contrast, patient injected with 100 mL of Isovue 370, pul monary embolism protocol. MIP images are created and reviewed. FINDINGS: Pulmonary Artery: There is no evidence for a filling defect within the pulmonary vasculature to sugge st acute pulmonary embolism. The pulmonary artery is of normal size. Lungs/Pleura: No evidence of pleural effusion or pneumothorax. Biapical pleural-parenchymal scarring. Scattered tree-in-bud nodular opacities throughout the lungs most prominent in the lung bases. Airway: Large airways are patent. Heart: Heart is within normal limits for size.. No pericardial effusion. Mitral valvular prosthesis. Cardiac pacemaking leads within the anterior chest wall. Vasculature: No evidence of aortic aneurysm. Atelectatic calcification of the aorta and its branches. Mediastinum: Bilateral enlarged hilar and mediastinal lymph nodes. Example includes a subcarinal lymp h node measuring 1.17 short axis left paratracheal lymph node measuring 1.2 cm short axis. Musculoskeletal: No acute osseous abnormalities. Midline sternal wires. Left shoulder arthropathy. Mi ld to moderate degenerative changes of the thoracic spine. Soft Tissues: Bilateral breast prosthesis. Bilateral enlarged axillary lymph nodes with largest on th e left measuring up to 1.7 cm (series 401, image 65). Largest on the right measures 1.2 cm short axis (series 401, image 41). Lower neck: No significant findings. Upper Abdomen: No significant findings. IMPRESSION: 1. No evidence of pulmonary embolism. 2. Scattered tree-in-bud nodular opacities throughout the lungs most prominently within the lung base s. This is most consistent with an infectious/inflammatory bronchiolitis. 3. Multiple enlarged bilateral axillary lymph nodes with largest on the left measuring up to 1.7 cm. This raises concern for metastasis versus reactive. Ultrasound is recommended. 4. Mediastinal and bilateral hilar adenopathy.. This may be reactive to #2. However underlying malign [place]/metastasis is not excluded.
[2023-05-14] MEDS ORDERED: ATORVASTATIN 80 MG TAB PO SCH (21:00)
[2023-05-14] MEDS ORDERED: METOPROLOL TARTRATE 25 MG TAB PO SCH (21:00)
[2023-05-14] MEDS: FAMOTIDINE 20 MG TAB PO SCH (21:45)
[2023-05-14] MEDS: METOPROLOL TARTRATE 50 MG TAB PO SCH (21:45)
[2023-05-14] MEDS: APIXABAN 5 MG TAB PO SCH (21:45)
[2023-05-15] MEDS: DILTIAZEM 125 MG in SODIUM CHLORIDE 0.9% 100 ML IV SCH (03:23)
[2023-05-15] MEDS: APIXABAN 5 MG TAB PO SCH (07:32)
[2023-05-15] MEDS: FAMOTIDINE 20 MG TAB PO SCH (07:32)
[2023-05-15] MEDS: METOPROLOL TARTRATE 50 MG TAB PO SCH (07:32)
[2023-05-15 07:40] VITALS: RESP 18; TEMP 98.3
[2023-05-15 08:07] LABS: HCT 37.7 % (34.0-46.0); MCH 32.3 pg (25.0-35.0); MCHC 34.6 g/dL (31.0-37.0); MCV 93.4 fL (80.0-100.0); Mean Platelet Volume 9.1; Platelet Count 225 k/uL (150-450); RBC 4.04 m/uL (3.80-5.40); RDW 14.2 % (11.5-15.5); WBC 14.7 k/uL (3.8-10.6)
[2023-05-15 08:28] LABS: ALT 14 U/L (4-34); AST 19 U/L (14-36); African American GFR (CKD) >90 (>60 ml/min/1.73 sqM); Albumin 3.3 g/dL (3.5-5.0); Alkaline Phosphatase 142 U/L (38-126); Anion Gap 9 mmol/L; Blood Urea Nitrogen 10 mg/dL (7-17); Calcium 9.2 mg/dL (8.4-10.2); Carbon Dioxide 26 mmol/L (22-30); Chloride 99 mmol/L (98-107); Glucose 143 mg/dL (74-99); Magnesium 1.9 mg/dL (1.6-2.3); Non-African American GFR(CKD) 89 (>60 ml/min/1.73 sqM); Potassium 3.9 mmol/L (3.5-5.1); Sodium 134 mmol/L (137-145); Total Bilirubin 0.9 mg/dL (0.2-1.3); Total Protein 6.1 g/dL (6.3-8.2)
[2023-05-15] MEDS ORDERED: ANASTROZOLE 1 MG TAB PO SCH (09:00)
--- NOTE | 2023-05-15 10:55 | P.DS ---
Providers Date of admission: 05/14/23 12:43 Expected date of discharge: 05/15/23 Attending physician: Haley Lazcano DO Consults: 05/14/23 12:41 Consult Physician Urgent Consulting Provider: Kartik Palencia Consult Reason/Comments: a fib w rvr Do you want consulting provider notified?: Yes Primary care physician: [facility] Hospital Course: Discharge Diagnosis: Atrial fibrillation with RVR, converted to normal sinus rhythm with occasional PACs. metoprolol was increased to 50 mg twice daily. Echocardiogram was completed and per cardiology recommendations patient may be discharged home without echocardiogram results and follow-up in the office in one week to discuss these results and follow-up visit. . Shortness of breath with recent diagnosis of bronchitis. Covid PCR, influenza A, influenza B, and RSV were negative. CT revealing Pulmonary nodular opacities, reactive versus metastatic process. CT was completed showing no evidence of pulmonary emboli revealing scattered tree and bud nodular opacities throughout the lungs most prominently within the lung bases consistent with infectious/inflammatory bronchiolitis. CT also revealing multiple enlarged bilateral axillary lymph nodes with the largest on the left measuring up to 1.7 cm raising concern for metastasis versus reactive. Mediastinal and bilateral hilar adenopathy also may be reactive, however underlying malignancy/metastasis cannot be excluded. patient instructed she will need to follow up outpatient with hospital attendant for further evaluation and repeat imaging. Patient was informed that she has an appointment with Dr. Hermosillo on 06/02/23 at 10 AM. Patient instructed that it is of utmost importance to follow up with this appointment as she does have a history of breast cancer History of CAD status post CABG Hypertension Hyperlipidemia History of MVP status post repair History of breast cancer status post bilateral mastectomy. Continue daily medication regimen with Arimidex 1 mg daily. Hospital Course: Patient is a very pleasant 77-year-old female with a past medical history of CAD status post CABG, paroxysmal atrial fibrillation on anticoagulation with Eliquis and follows with biodiesel operations manager Dr. Palencia, hypertension, hyperlipidemia, COPD, severe mitral valve prolapse status post repair, and breast cancer status post bilateral mastectomy on Arimidex. She presented to the emergency department with a chief complaint of shortness of breath. Patient reports last Thursday she came down with an upper respiratory infection with cough, sinus congestion and drainage, fevers, chills, and significant fatigue. Patient reports her upper respiratory symptoms have significantly improved however her shortness of breath progressively worsened. Patient reports since Thursday she has been too ill to take any of her medications including her Eliquis and metoprolol, so she has missed a total of 6 days of her medications. Patient does however report taking her medications this morning prior to coming to the emergency department. She currently denies having any dizziness, lightheadedness, changes in vision or hearing, chest pain or palpitations, abdominal pain, nausea, vomiting, or experiencing any numbness/tingling/weakness/increased swelling in her lower extremities. Patient underwent full evaluation in the emergency department. Upon arrival patient found to have significant tachycardia with vital signs as follows blood pressure 106/90, heart rate 155, respiratory rate 20, temp 98.0F, SpO2 of 91% on room air. EKG completed showing atrial fibrillation with RVR at 149 bpm upon personal review and interpretation. Labs completed and reviewed. CBC showing leukocytosis with WBC count of 12.6. Coagulation profile normal findings. BMP revealing mild hypochloremic hyponatremia with sodium of 134 and chloride of 97 otherwise normal findings. Liver profile showing slightly elevated alkaline phosphatase of 137 otherwise normal findings. Magnesium 1.9. Troponin less than 0.012. ProBNP 760. TSH normal findings at 0.618. Influenza A, influenza B, RSV, and Covid PCR were all negative. Chest x-ray reviewed and is negative for acute cardiopulmonary process. Patient was started on Cardizem infusion and admitted under our services with consultation to cardiology.metoprolol was increased to 50 mg twice daily. Patient weaned off Cardizem infusion. Patient converted back to normal sinus rhythm.CTA chest was completed. CT revealing Pulmonary nodular opacities, reactive versus metastatic process. CT was completed showing no evidence of pulmonary emboli revealing scattered tree and bud nodular opacities throughout the lungs most prominently within the lung bases consistent with infectious/inflammatory bronchiolitis. CT also revealing multiple enlarged bilateral axillary lymph nodes with the largest on the left measuring up to 1.7 cm raising concern for metastasis versus reactive. Mediastinal and bilateral hilar adenopathy also may be reactive, however underlying malignancy/metastasis cannot be excluded. patient instructed she will need to follow up outpatient with hospital attendant for further evaluation and repeat imaging. Patient was informed that she has an appointment with Dr. Hermosillo on 06/02/23 at 10 AM. Patient instructed that it is of utmost importance to follow up with this appointment as she does have a history of breast cancer. cardiology also clearing patient from cardiac perspective. Echocardiogram was completed and per cardiology recommendations patient may be discharged home without echocardiogram results and follow-up in the office in one week to discuss these results and follow-up visit on 05/27/[address] at [address] Palencia. Physical exam: Vital signs reviewed and stable. General: Nontoxic, no distress and appears stated age. Derm: Skin warm and dry, normal coloration for ethnicity. Head: Atraumatic, normocephalic and symmetric. Eyes: EOMs intact, no lid lag, and anicteric sclera Mouth: no lip lesions, mucus membranes moist Cardiovascular: regular rate and rhythm, positive posterior tibial pulses bilaterally, and cap refill < 2 seconds. Lungs: Respirations even, regular, and unlabored on room air. Lungs CTA bilaterally, no rhonchi, no rales, no wheezing, and no accessory muscle usage. Abdominal: soft, nontender to palpation, no guarding, no appreciable organomegaly Ext: ROM intact. No gross muscle atrophy, no edema, no contractures Neuro: Speech clear, face symmetrical and CN II-XII grossly intact with no noted focal neuro deficits Psych: Alert and oriented to person, place, time, and situation. Appropriate and pleasant affect. A total of 36 minutes of time were spent preparing this complex discharge summary. Pt was discharged on 05/15/23 10:53 AM Patient was seen independently by Nurse Practitioner.This document was prepared using [employer] dictation software. Please allow for errors in pearl digger while rare they do occur. Patient Condition at Discharge: Stable Plan - Discharge Summary Discharge Rx Participant: No New Discharge Prescriptions: New Metoprolol Tartrate [Lopressor] 50 mg PO BID 30 Days #60 tab Continue Apixaban [Eliquis] 5 mg PO BID HYDROcodone/APAP 10-325MG [[place] 10-325] 1 tab PO TID Pramipexole Di-HCl [Mirapex] 0.5 mg PO BID Atorvastatin [Lipitor] 80 mg PO HS Anastrozole [Arimidex] 1 mg PO DAILY Gabapentin 600 mg PO TID Cyclobenzaprine [Flexeril] 10 mg PO TID Discontinued Metoprolol Tartrate [Lopressor] 25 mg PO BID Discharge Medication List Anastrozole [Arimidex] 1 mg PO DAILY 03/05/20 [History] Apixaban [Eliquis] 5 mg PO BID 03/05/20 [History] Atorvastatin [Lipitor] 80 mg PO HS 03/05/20 [History] Gabapentin 600 mg PO TID 03/05/20 [History] HYDROcodone/APAP 10-325MG [[place] 10-325] 1 tab PO TID 03/05/20 [History] Pramipexole Di-HCl [Mirapex] 0.5 mg PO BID 03/05/20 [History] Cyclobenzaprine [Flexeril] 10 mg PO TID 10/02/22 [History] Metoprolol Tartrate [Lopressor] 50 mg PO BID 30 Days #60 tab 05/15/23 [Rx] Follow up Appointment(s)/Referral(s): Sania Hermosillo MD [STAFF PHYSICIAN] - 06/02/23 10:00 am (THURSDAY) Kartik Palencia MD [STAFF PHYSICIAN] - 05/27/23 4:00 pm (THURSDAY) None,Stated [REFERRING] - 1-2 days Patient Instructions/Handouts: A-fib (Atrial Fibrillation) (DC) Activity/Diet/Wound Care/Special Instructions: Activity: As tolerated. Take breaks as needed. Diet: Heart healthy and carb consistent diet. Avoid salts, or foods with hidden salts such as canned or boxed foods and frozen dinners. Extra salt makes your heart work harder and traps the fluid in your body for longer. Special Instructions: Take all of your medications as directed and remember to keep all of your doctor's appointments and follow-up as needed. Carnival Worker, Dr. Terry, stated you may be discharged prior to echocardiogram results and follow up outpatient with biodiesel operations manager office in one week and they will discuss your echocardiogram results with you at that time. As we discussed, your CT revealed some nodular opacities throughout the lungs most prominently within the lung bases consistent with infectious/inflammatory bronchiolitis but also revealed multiple enlarged bilateral axillary, mediastinal, and hilar lymph nodes which may also may be reactive, however underlying malignancy/metastasis cannot be excluded and you will need repeat imaging and follow up with hospital attendant. Thank you for allowing us to participate in your care, it was truly a pleasure having you for our patient!!! Discharge Disposition: HOME SELF-CARE
--- NOTE | 2023-05-15 11:51 | P.CRDCN ---
History of Present Illness Consult date: 05/15/23 Consult reason: atrial fibrillation (With RVR) History of present illness: History of present illness: This is a 77-year-old female patient of Dr. 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 Patient was last seen in the office in September of this year for preop clearance for left knee surgery. We have been asked to evaluate the patient for A. fib with RVR. Patient presented to the emergency center due to dyspnea going on for about a week with mild cough and mild shortness of breath. No lower extremity edema. No chest pain. No palpitations. Patient states that she has not been feeling well due to the cough and phlegm production and stopped taking all of her medications was staying in bed most the time. She complains of cough and phlegm production but no fever or chills. Patient has been started on Cardizem drip at 7.5 mg per hour and resumed on Lopressor 50 mg twice daily. Telemetry is currently sinus rhythm. EKG atrial fibrillation with ventricular rate of 149 Chest x-ray: No acute process CTA of the chest no evidence of pulmonary embolism. Scattered tree in bud no dular opacities throughout the lungs most prominent within the lung bases. This is most consistent with an infectious or inflammatory bronchiolitis. Multiple enlarged bilateral axillary lymph nodes with the largest on the left measuring 1.7 cm. This raises concern for metastatic this versus reactive. Ultrasound recommended. Mediastinal and bilateral hilar adenopathy. This may be reactive to #2. Underlying malignancy metastasis is not excluded. WBC 12.6, hemoglobin 13.3, platelet count 183. INR 1. Sodium 134, potassium 4, chloride 97, CO2 26, BUN 11 creatinine 0.64. Troponin negative 3. Glucose 153. Magnesium 1.9. Alkaline phosphatase 137 otherwise liver function tests are normal. TSH 0.618 and normal free T4 and free T3. Influenza A, influenza B, RSV and Covid 19 detected. ProBNP 760. Home cardiac medications: Eliquis 5 mg twice daily, atorvastatin 80 mg at bedtime, Lopressor 25 mg twice daily Echocardiogram performed 06/18/2022 in the office revealed EF 55-60%, moderate concentric left ventricle hypertrophy. Trace to mild aortic regurgitation, mild mitral regurgitation, mild tricuspid regurgitation. Normal pulmonary artery systolic pressure 25 mmHg. Review Of Systems: At the time of my evaluation: Constitutional: No fever, no chills. No weakness, fatigue or lethargy. EENT: No headache. No dizziness. Lungs: + shortness of breath, +cough, + sputum production. No wheezing. Cardiovascular: No chest pain, no lower extremity edema. No palpitations. No paroxysmal nocturnal dyspnea. No orthopnea. No lightheadedness or dizziness. No syncopal episodes. Abdominal: No abdominal pain. No bloody or tarry stools. Musculoskeletal: No myalgias. No muscle weakness, no frequent falls. Integumentary: No wounds. No rash. No unusual bruising. Neurologic: No aphasia. No facial droop. No change in mentation. Physical examination: Gen: This is a 77-year-old female resting in bed and appears to be comfortable and in no acute distress VS: reviewed HEENT: Head is atraumatic, normocephalic. Pupils equal, round. Sclerae is anicteric. NECK: Supple. No JVD. . LUNGS: Clear to auscultation. No wheezes or rhonchi. No intercostal retractions. HEART: Regular rate and rhythm. Systolic murmur right upper sternal border. ABDOMEN: Soft No tenderness. EXTREMITIES: No pedal edema. No calf tenderness. NEUROLOGICAL: Patient is awake, alert and oriented x3. Assessment: A. fib with RVR, converted to sinus rhythm Hypertension Dyslipidemia Valvular heart disease with aortic and mitral regurgitation COPD Tobacco use and dependence Abnormalities on CT Plan: Discontinue Cardizem drip Continue home cardiac medications Obtain 2-D echocardiogram and Doppler study to assess cardiac structure and function-patient does not have to wait for report Patient may follow-up in the office with Dr. Palencia in one week Thank you kindly for this consultation. Nurse practitioner note has been reviewed, I agree with documented findings and plan of care. Patient was seen and examined. Past Medical History Past Medical History: Atrial Fibrillation, Cancer, COPD, Hyperlipidemia, Hypertension, Mitral Valve Prolapse (MVP) Additional Past Medical History / Comment(s): lt breast cancer. rt groin blood clot after open heart surgery. periodic limb movement disorder History of Any Multi-Drug Resistant Organisms: MRSA Date of last positivie culture/infection: 2015 MDRO Source:: lt chest area Past Surgical History: Bladder Surgery, Breast Surgery, Cholecystectomy, Coronary Bypass/CABG, Hysterectomy, Joint Replacement Additional Past Surgical History / Comment(s): breast augmentation. amadou mastectomy with saline implants amadou and removed, tissue rehab liaison in place lt breast, (left breast with lymph nodes removed). OPen heart surgery with repair of mitral valve-05/18/19. joint replacment rt & lt knee, cervical laminectomy. amadou cataract surgery, rt eye implant removed and replaced. bladder suspension. left leg surgery Past Anesthesia/Blood Transfusion Reactions: No Reported Reaction Additional Past Anesthesia/Blood Transfusion Reaction / Comment(s): while in surgery leg movement Past Psychological History: Anxiety, Depression Smoking Status: Former smoker Past Alcohol Use History: None Reported Additional Past Alcohol Use History / Comment(s): smoker off and on since age 17, couple times a week smokes after dinner Past Drug Use History: Marijuana Additional Drug Use History / Comment(s): medical marijuana - Past Family History Sister(s) Additional Family Medical History / Comment(s): 5 sisters with cancer in their 50's Medications and Allergies Home Medications Medication Instructions Recorded Confirmed Type Anastrozole [Arimidex] 1 mg PO DAILY 03/05/20 05/14/23 History Apixaban [Eliquis] 5 mg PO BID 03/05/20 05/14/23 History Atorvastatin [Lipitor] 80 mg PO HS 03/05/20 05/14/23 History Gabapentin 600 mg PO TID 03/05/20 05/14/23 History HYDROcodone/APAP 10-325MG [[place] 1 tab PO TID 03/05/20 05/14/23 History 10-325] Pramipexole Di-HCl [Mirapex] 0.5 mg PO BID 03/05/20 05/14/23 History Cyclobenzaprine [Flexeril] 10 mg PO TID 10/02/22 05/14/23 History Metoprolol Tartrate [Lopressor] 50 mg PO BID 30 Days #60 tab 05/15/23 Rx Allergies Allergy/AdvReac Type Severity Reaction Status Date / Time morphine Allergy Anaphylaxis Verified 05/14/23 12:33 metformin AdvReac Unknown Nausea & Verified 05/14/23 12:33 Vomiting & Diarrhea Physical Exam Vitals: Vital Signs Temp Pulse Pulse Resp BP BP Pulse Ox 05/15/23 07:26 98.3 F 150 H 18 126/75 94 L 05/15/23 04:00 93 20 127/70 94 L 05/15/23 02:00 98 20 05/15/23 00:00 98 20 113/61 05/14/23 20:30 108 H 20 132/73 96 05/14/23 20:00 108 H 20 132/73 96 05/14/23 19:00 107 H 18 120/61 93 L 05/14/23 13:00 151 H 12 118/87 95 05/14/23 12:00 97.9 F 102 H 18 138/64 94 L 05/14/23 11:35 130 H 20 138/64 98 05/14/23 11:00 152 H 33 H 115/76 97 05/14/23 10:42 22 05/14/23 10:32 98.0 F 155 H 20 106/90 92 L 05/14/23 10:29 91 L Intake and Output 05/14/23 05/15/23 05/15/23 22:59 06:59 14:59 Intake Total 102.875 Balance 102.875 Intake: Intake, IV Titration 102.875 Amount Diltiazem 125 mg In 102.875 Sodium Chloride 0.9% 100 ml @ 7.5 MG/HR 7.5 mls/hr IV .[id number] [facility] Rx#: [id number] Other: # Voids 1 2 Weight 84.368 kg Results 05/15/23 07:26 05/15/23 07:26 Cardiac Enzymes 05/14/23 05/14/23 05/14/23 Range/Units 10:40 10:40 18:02 AST 20 (14-36) U/L Troponin I <0.012 <0.012 (0.000-0.034) ng/mL 05/14/23 Range/Units 21:49 AST (14-36) U/L Troponin I <0.012 (0.000-0.034) ng/mL Coagulation 05/14/23 Range/Units 10:40 PT 10.7 (10.0-12.5) sec APTT 28.6 (22.0-30.0) sec CBC 05/14/23 Range/Units 10:40 WBC 12.6 H (3.8-10.6) k/uL RBC 4.25 (3.80-5.40) m/uL Hgb 13.3 (11.4-16.0) gm/dL Hct 39.5 (34.0-46.0) % Plt Count 183 (150-450) k/uL Comprehensive Metabolic Panel 05/14/23 Range/Units 10:40 Sodium 134 L (137-145) mmol/L Potassium 4.0 (3.5-5.1) mmol/L Chloride 97 L (98-107) mmol/L Carbon Dioxide 26 (22-30) mmol/L BUN 11 (7-17) mg/dL Creatinine 0.64 (0.52-1.04) mg/dL Glucose 153 H (74-99) mg/dL Calcium 9.2 (8.4-10.2) mg/dL AST 20 (14-36) U/L ALT 15 (4-34) U/L Alkaline Phosphatase 137 H (38-126) U/L Total Protein 6.5 (6.3-8.2) g/dL Albumin 3.4 L (3.5-5.0) g/dL Current Medications Generic Name Dose Route Start Last Admin Trade Name Freq PRN Reason Stop Dose Admin Anastrozole 1 mg 05/15/23 09:00 05/15/23 07:33 Anastrozole 1 Mg Tab PO 1 mg DAILY VIVIENNE Administration Apixaban 5 mg 05/14/23 21:00 05/15/23 07:32 Apixaban 5 Mg Tab PO 5 mg BID IVVIENNE Administration Protocol Atorvastatin Calcium 80 mg 05/14/23 21:00 05/14/23 21:45 Atorvastatin 80 Mg Tab PO 80 mg HS VIVIENNE Administration Famotidine 20 mg 05/14/23 21:00 05/15/23 07:32 Famotidine 20 Mg Tab PO 20 mg BID VIVIENNE Administration Diltiazem HCl 125 mg/ Sodium 125 mls @ 7.5 mls/hr 05/14/23 10:45 05/15/23 03:23 Chloride IV 7.5 mg/hr .[id number] VIVIENNE 7.5 mls/hr Administration 7.5 MG/HR Metoprolol Tartrate 50 mg 05/14/23 21:00 05/15/23 07:32 Metoprolol Tartrate 50 Mg Tab PO 50 mg BID VIVIENNE Administration Naloxone HCl 0.2 mg 05/14/23 12:41 Naloxone 0.4 Mg/Ml 1 Ml Vial IV Q2M PRN Opioid Reversal Intake and Output 05/14/23 05/15/23 05/15/23 22:59 06:59 14:59 Intake Total 102.875 Balance 102.875 Intake: Intake, IV Titration 102.875 Amount Diltiazem 125 mg In 102.875 Sodium Chloride 0.9% 100 ml @ 7.5 MG/HR 7.5 mls/hr IV .[id number] [facility] Rx#: [id number] Other: # Voids 1 2 Weight 84.368 kg 05/14/23 10:40 05/14/23 10:40
[2023-05-15 15:23] VITALS: BP 120/70; PULSE 87
--- NOTE | 2023-05-15 16:39 | CA ---
Transthoracic Echo Report Name: Bobbi Perez Age: 77 Gender: F : 1945 Exam Date: 05/15/2023 08:35 Exam Location: [facility] Ht (in): 65 Wt (lb): 186 Ordering Physician: Simba Gentile Attending/Referring Phys: Loan Service Officer Jasmeet Soriano Procedure CPT: Indications: Evaluate structure and function of heart Cardiac Hx: Technical Quality: Technically difficult study Contrast 1: Lumason Total Dose (mL): 5 Contrast 2: Total Dose (mL): MEASUREMENTS (Male / Female) Normal Values 2D ECHO LV Diastolic Diameter PLAX 3.2 cm 4.2 - 5.9 / 3.9 - 5.3 cm LV Systolic Diameter PLAX 2.7 cm IVS Diastolic Thickness 1.1 cm 0.6 - 1.0 / 0.6 - 0.9 cm LVPW Diastolic Thickness 1.2 cm 0.6 - 1.0 / 0.6 - 0.9 cm LV Relative Wall Thickness 0.7 RV Internal Dim ED PLAX 3.7 cm LVOT Diameter 1.8 cm Aortic Root Diameter 2.6 cm LA Systolic Diameter LX 2.7 cm 3.0 - 4.0 / 2.7 - 3.8 cm LV Diastolic Volume MOD BP 58.0 cm??? 67 - 155 / 56 - 104 cm??? LV Systolic Volume MOD BP 32.4 cm??? - 58 / 19 - 49 cm??? LV Ejection Fraction MOD BP 44.2 % >= 55 % LV Cardiac Index MOD BP 1103.5 cm???/min???m??? LV Diastolic Volume MOD 4C 59.3 cm??? LV Systolic Volume MOD 4C 34.8 cm??? LV Ejection Fraction MOD 4C 41.4 % LV Cardiac Index MOD 4C 1056.6 cm???/min???m??? LV Diastolic Length 4C 7.1 cm LV Systolic Length 4C 6.9 cm LV Diastolic Volume MOD 2C 52.3 cm??? LV Systolic Volume MOD 2C 25.5 cm??? LV Ejection Fraction MOD 2C 51.3 % LV Cardiac Index MOD 2C 1156.2 cm???/min???m??? LV Diastolic Length 2C 6.5 cm LV Systolic Length 2C 5.8 cm LA Volume 40.8 cm??? 18 - 58 / 22 - 52 cm??? LA Volume Index 20.4 cm???/m??? 16 - 28 cm???/m??? Ascending Aorta Diameter 2.9 cm DOPPLER AV Peak Velocity 122.5 cm/s AV Peak Gradient 6.0 mmHg LVOT Peak Velocity 93.2 cm/s LVOT Peak Gradient 3.5 mmHg LVOT Velocity Time Integral 17.9 cm LVOT Stroke Volume 46.5 cm??? LVOT Stroke Volume Index 24.3 ml/m??? LVOT Cardiac Index 2005.1 cm???/min???m??? AV Area Cont Eq pk 2.0 cm??? MV Peak Velocity 159.5 cm/s MV Peak Gradient 10.2 mmHg MV Mean Velocity 75.0 cm/s MV Mean Gradient 3.0 mmHg MV Velocity Time Integral 39.2 cm MR Peak Velocity 332.9 cm/s MR Peak Gradient 44.3 mmHg Mitral E Point Velocity 153.6 cm/s Mitral A Point Velocity 41.6 cm/s Mitral E to A Ratio 3.7 MV Deceleration Time 261.1 ms FINDINGS Left Ventricle Normal LV size and wall thickness. Left ventricular ejection fraction is estimated at 55-60 %. No obvious regional wall motion abnormality. Right Ventricle Normal right ventricular size. Right Atrium Normal right atrial size. Left Atrium Normal left atrial size. LA volume index= 21ml/m2 Mitral Valve Mitral valve not well visualized. Mild MR. Aortic Valve Aortic valve not well visualized. No aortic valve stenosis or regurgitation. Tricuspid Valve Tricuspid valve not well visualized. Trace TR. Pulmonic Valve Pulmonic valve not well visualized. No pulmonic regurgitation. Pericardium Not well visualized. Aorta Normal size aortic root. CONCLUSIONS Technically very difficult with limited views. Left ventricular ejection fraction is estimated at 55-60 %. No obvious regional wall motion abnormality. No significant valvular dysfunction. No pericardial effusion Previewed by: Dr Clement Younger (Electronically Signed) Final Date: 15 May 2023 16:39
== END 2023-05-15 11:41 | disposition home or self-care (01) | DRG 309 ==
LOC: EC 10:24 → 3SCARD 12:43
PROVIDERS: ADMIT Internal Medicine; ATTEND Internal Medicine
DX: I48.0 Paroxysmal atrial fibrillation (principal); E87.1 Hypo-osmolality and hyponatremia; J44.0 Chronic obstructive pulmonary disease with (acute) lower respiratory infection; I11.9 Hypertensive heart disease without heart failure; E87.8 Other disorders of electrolyte and fluid balance, not elsewhere classified; Z20.822 Contact with and (suspected) exposure to COVID-19; I08.0 Rheumatic disorders of both mitral and aortic valves; I25.10 Atherosclerotic heart disease of native coronary artery without angina pectoris; F32.A Depression, unspecified; F41.9 Anxiety disorder, unspecified; E78.5 Hyperlipidemia, unspecified; G47.61 Periodic limb movement disorder; R59.0 Localized enlarged lymph nodes; Z91.148 Patient's other noncompliance with medication regimen for other reason; Z79.811 Long term (current) use of aromatase inhibitors; Z79.01 Long term (current) use of anticoagulants; Z79.899 Other long term (current) drug therapy; Z95.1 Presence of aortocoronary bypass graft; Z90.13 Acquired absence of bilateral breasts and nipples; Z85.3 Personal history of malignant neoplasm of breast; Z87.891 Personal history of nicotine dependence; Z86.14 Personal history of Methicillin resistant Staphylococcus aureus infection; Z88.5 Allergy status to narcotic agent; Z88.8 Allergy status to other drugs, medicaments and biological substances
CPT/HCPCS: 36415; 71045; 71275; 80053; 83735; 83880; 84439; 84443; 84481; 84484; 85025; 85027; 85610; 85730; 87636; 93005; 93306; 94760; 96365; 96366; 96375; 96376; 99291

== ENCOUNTER 2023-06-10 08:05 | Day surgery (SDC) | payer MEDICARE, BC ==
[2023-06-10 08:26] VITALS: BP 127/70; PULSE 69; RESP 16; TEMP 98
--- NOTE | 2023-06-10 11:25 | US ---
EXAMINATION TYPE: US biopsy lymph node DATE OF EXAM: 06/10/2023 10:55 AM CLINICAL INDICATION:Female, 77 years old with history of R59.0 LOCALIZED ENLARGED LYMPH NODES; . COMPARISON: Chest CT 05/14/2023. ATTENDING: Dr. Terrell Cohen PROCEDURE: Informed consent was obtained. The risks and benefits of the procedure were discussed with the patien t. The site was marked. Timeout procedure was performed Ultrasound imaging of the left anterior lower axilla demonstrates heterogenous mass The patient was prepped, draped in the usual sterile fashion, and locally anesthetized with 1% lidoca ine. There were 2 18-gauge core biopsies obtained. Patient tolerated the procedure without incident a nd was sent home in stable condition. IMPRESSION: Successful ultrasound guided left inferior anterior axilla mass biopsy.
== END 2023-06-10 09:25 | disposition home or self-care (01) ==
LOC: RADPROMAIN 08:05
PROVIDERS: ATTEND Internal Medicine
DX: C50.912 Malignant neoplasm of unspecified site of left female breast (principal)
CPT/HCPCS: 38505; 76942; 88305; 88341; 88342

== ENCOUNTER → 2023-07-10 | Outpatient (CLI) | payer MEDICARE, BC ==
--- NOTE | 2023-07-11 09:00 | PE ---
EXAMINATION TYPE: PET CT fusion skull to thigh DATE OF EXAM: 07/10/2023 CLINICAL INDICATION:Female, 78 years old with history of C50.112 Breast CA; TECHNIQUE: Following the intravenous administration of 10.56 mCi of F-18 FDG, whole body images are performed from the skull base to the midthigh. Images are reviewed on the computer in the coronal, axial, and sagittal planes. Reconstructed rotating images are created on independent workstation and reviewed on the computer. A non-contrast CT is performed in conjunction with the PET scan. Glucose level 120 mg/dL CT DLP: 806 mGycm, Automated exposure control for dose reduction was used. COMPARISON: CT 05/14/2023, PET/CT None, FINDINGS: Mediastinal SUV mean is 2.5. Hepatic parenchyma SUV mean is 2.0. There is diffuse metastatic disease throughout the exam. FDG avid lymph nodes at examples include: SKULL BASE AND NECK: * Right neck max SUV 8.7. * Left neck max SUV 17.5. CHEST, MEDIASTINUM, AND HILAR REGION: * Right supraclavicular region max SUV 5.5. Largest measuring 6 mm in short axis. * Left supraclavicular region max SUV 7.3. Largest measuring 8 mm in short axis. * Right axilla max SUV 10.2. Largest measuring 11 mm in short axis. * Left axilla max SUV 11.7. Largest measuring 11 mm in short axis. * Mediastinal lymph nodes max SUV 11.2. * Left lower outer breast mass max SUV this measures 2.6 x 1.9 cm. * Uptake near the right breast implant anteriorly max SUV 3.3. * Uptake in the left breast implant is SUV 4.8. * Right internal mammary chain max SUV 8.3. * Left internal mammary chain max SUV 10.2. * Right epicardial fat max SUV 5.9. ABDOMEN AND PELVIS: * Conglomerate lymphadenopathy around the pancreas max SUV 14.4. The largest lymph node measuring up to 16 mm in short axis. * Peritoneal implant measuring 7 mm Max SUV 4.8. * Right inguinal lymph nodes max SUV 13.2. Largest measuring up to 9 mm in short axis. * Left inguinal lymph nodes max SUV 12.1 measuring up to 11 mm. * Diffuse retroperitoneal lymph nodes metabolic activity. MUSCULOSKELETAL STRUCTURES: No suspicious radiotracer activity. OTHER CT: Bilaterally aphakia. Atherosclerosis of the carotid bifurcations, arterial vasculature and coronary arteries. Bilateral breast implants. Mitral valve repair changes. Gallbladder appears surgic ally absent. Right adrenal lipid rich adenoma. Fat-containing inguinal hernias bilaterally. IMPRESSION: 1. Diffuse metastatic disease with FDG avid lymph nodes in nearly every lymph node station involving the head, neck, thorax, abdomen and pelvis. 2. Left breast mass FDG activity also present possibly related to primary malignancy.
== END | disposition home or self-care (01) ==
LOC: RADPETMAIN 07:59
PROVIDERS: ATTEND Internal Medicine Hematology & Oncology
DX: C77.8 Secondary and unspecified malignant neoplasm of lymph nodes of multiple regions (principal); C50.112 Malignant neoplasm of central portion of left female breast; N63.20 Unspecified lump in the left breast, unspecified quadrant
CPT/HCPCS: 78815; A9552

== ENCOUNTER 2023-09-24 12:39 | Inpatient (IN) | payer MEDICARE, BC ==
[2023-09-24 13:34] LABS: Basophils % (A) 1 %; Eosinophils # (A) 0.1 k/uL (0-0.7); Eosinophils % (A) 1 %; HCT 33.9 % (34.0-46.0); HGB 11.4 gm/dL (11.4-16.0); Lymphocytes # (A) 0.9 k/uL (1.0-4.8); Lymphocytes % (A) 13 %; MCH 31.4 pg (25.0-35.0); MCHC 33.5 g/dL (31.0-37.0); MCV 93.7 fL (80.0-100.0); Mean Platelet Volume 9.2; Monocytes # (A) 0.3 k/uL (0-1.0); Monocytes % (A) 4 %; Neutrophils # (A) 5.6 k/uL (1.3-7.7); Neutrophils % (A) 81 %; Partial Thromboplastin Time 24.3 sec (22.0-30.0); Platelet Count 238 k/uL (150-450); Prothrombin Time 11.1 sec (10.0-12.5); RBC 3.62 m/uL (3.80-5.40); RDW 15.8 % (11.5-15.5); WBC 6.9 k/uL (3.8-10.6)
[2023-09-24 13:39] LABS: ALT 20 U/L (4-34); AST 17 U/L (14-36); African American GFR (CKD) >90 (>60 ml/min/1.73 sqM); Albumin 3.3 g/dL (3.5-5.0); Alkaline Phosphatase 130 U/L (38-126); Anion Gap 7 mmol/L; Blood Urea Nitrogen 7 mg/dL (7-17); Calcium 8.9 mg/dL (8.4-10.2); Carbon Dioxide 27 mmol/L (22-30); Chloride 103 mmol/L (98-107); Digoxin <0.4 ng/mL; Glucose 134 mg/dL (74-99); Magnesium 1.6 mg/dL (1.6-2.3); Non-African American GFR(CKD) 87 (>60 ml/min/1.73 sqM); Potassium 3.8 mmol/L (3.5-5.1); Sodium 137 mmol/L (137-145); Total Bilirubin 0.8 mg/dL (0.2-1.3); Total Protein 5.7 g/dL (6.3-8.2)
--- NOTE | 2023-09-24 13:47 | XR ---
EXAMINATION TYPE: XR chest 2V DATE OF EXAM: 09/24/2023 COMPARISON: NONE HISTORY: Dysrhythmia. TECHNIQUE: Frontal and lateral views of the chest are obtained. IMPRESSION: There are midline sternotomy wires. There is no focal area of consolidation. The cardiac silhouette is mildly enlarged and the pulmonary vessels are within normal limits.
[2023-09-24] MEDS: DILTIAZEM DRIP BOLUS FROM BAG 1 MG SOLN IV ONE (14:19)
[2023-09-24] MEDS: DILTIAZEM 125 MG in SODIUM CHLORIDE 0.9% 100 ML IV SCH (14:20)
--- NOTE | 2023-09-24 14:20 | ED ---
General Adult HPI - General Chief complaint: Recheck/Abnormal Lab/Rx Stated complaint: heart complications Time Seen by Provider: 09/24/23 12:50 Source: patient Mode of arrival: ambulatory Limitations: no limitations - History of Present Illness Initial comments: 78-year-old female with past medical history of metastatic breast cancer, A-fib, COPD who presents to the emergency department from the cardiology office. She states she went in for routine appointment. They found that the patient was in A-fib with RVR and recommended that she come to the hospital. Patient states that she has felt her heart racing for the past couple of days. She was trying to avoid coming to the hospital. She did see her primary care on Thursday and reports that she was switched from metoprolol to digoxin in an attempt to help control her heart rate. Dr. Vasquez was not agreeable to this decision. She does admit to some shortness of breath. She is on Eliquis. Patient has a history of breast cancer and is on chemo. Denies history of DVT or PE. no other alleviating, precipitating modifying factors - Related Data Home Medications Medication Instructions Recorded Confirmed Apixaban [Eliquis] 5 mg PO BID 03/05/20 09/24/23 HYDROcodone/APAP 10-325MG [[place] 1 tab PO TID 03/05/20 09/24/23 10-325] Pramipexole Di-HCl [Mirapex] 0.5 mg PO BID 03/05/20 09/24/23 Cyclobenzaprine [Flexeril] 10 mg PO TID PRN 10/02/22 09/24/23 Albuterol Sulfate [Ventolin HFA] 2 puff INHALATION RT-QID PRN 09/24/23 09/24/23 Digoxin [Lanoxin] 125 mcg PO DAILY 09/24/23 09/24/23 Herceptin Hylecta 1 dose IVPB Q21D 09/24/23 09/24/23 Loperamide HCl [Imodium A-D] 2 mg PO DAILY 09/24/23 09/24/23 Metoprolol Tartrate [Lopressor] 25 mg PO BID 09/24/23 09/24/23 Ondansetron [Zofran] 4 mg PO Q4H PRN 09/24/23 09/24/23 PACLitaxeL [Taxol] 1 dose IVPB FR 09/24/23 09/24/23 Umeclidinium Brm/Vilanterol Tr 1 puff INHALATION RT-DAILY 09/24/23 09/24/23 [Anoro Ellipta 62.5-25 Mcg INH] Allergies Allergy/AdvReac Type Severity Reaction Status Date / Time morphine Allergy Anaphylaxis Verified 09/24/23 14:24 Review of Systems ROS Statement: Those systems with pertinent positive or pertinent negative responses have been documented in the HPI. ROS Other: All systems not noted in ROS Statement are negative. Past Medical History Past Medical History: Atrial Fibrillation, Cancer, COPD, Hyperlipidemia, Hypertension, Mitral Valve Prolapse (MVP) Additional Past Medical History / Comment(s): lt breast cancer. rt groin blood clot after open heart surgery. periodic limb movement disorder History of Any Multi-Drug Resistant Organisms: MRSA Date of last positivie culture/infection: 2015 MDRO Source:: lt chest area Past Surgical History: Bladder Surgery, Breast Surgery, Cholecystectomy, Coronary Bypass/CABG, Hysterectomy, Joint Replacement Additional Past Surgical History / Comment(s): breast augmentation. amadou mast ectomy with saline implants amadou and removed, tissue clinical reviewer in place lt breast, (left breast with lymph nodes removed). OPen heart surgery with repair of mitral valve-05/18/19. joint replacment rt & lt knee, cervical laminectomy. amadou cataract surgery, rt eye implant removed and replaced. bladder suspension. left leg surgery Past Anesthesia/Blood Transfusion Reactions: No Reported Reaction Additional Past Anesthesia/Blood Transfusion Reaction / Comment(s): while in surgery leg movement Past Psychological History: Anxiety, Depression Smoking Status: Former smoker Past Alcohol Use History: None Reported Past Drug Use History: Marijuana - Past Family History Sister(s) Additional Family Medical History / Comment(s): 5 sisters with cancer in their 50's Mother Family Medical History: Cancer, Hypertension Father Family Medical History: Myocardial Infarction ([place]) Additional Family Medical History / Comment(s): in his 50's from a [place] General Exam Limitations: no limitations General appearance: alert, in no apparent distress Head exam: Present: atraumatic, normocephalic, normal inspection Eye exam: Present: normal appearance, PERRL, EOMI. Absent: scleral icterus, conjunctival injection, periorbital swelling ENT exam: Present: normal exam, mucous membranes moist Neck exam: Present: normal inspection. Absent: tenderness, meningismus, lymphadenopathy Respiratory exam: Present: normal lung sounds bilaterally. Absent: respiratory distress, wheezes, rales, rhonchi, stridor Cardiovascular Exam: Present: tachycardia, irregular rhythm, normal heart sounds. Absent: systolic murmur, diastolic murmur, rubs, gallop, clicks GI/Abdominal exam: Present: soft, normal bowel sounds. Absent: distended, tenderness, guarding, rebound, rigid Extremities exam: Present: normal inspection, full ROM, normal capillary refill. Absent: tenderness, pedal edema, joint swelling, calf tenderness Back exam: Present: normal inspection Neurological exam: Present: alert, oriented X3, CN II-XII intact Psychiatric exam: Present: normal affect, normal mood Skin exam: Present: warm, dry, intact, normal color. Absent: rash Course Vital Signs 09/24/23 09/24/23 09/24/23 12:45 13:20 15:00 Temperature 98.2 F Pulse Rate 102 H 130 H 163 H Respiratory 20 20 20 Rate Blood Pressure 106/71 110/61 108/62 O2 Sat by Pulse 94 L 93 L 95 Oximetry 09/24/23 09/24/23 15:08 15:15 Temperature Pulse Rate 137 H 93 Respiratory 20 20 Rate Blood Pressure 106/53 106/53 O2 Sat by Pulse 93 L Oximetry Medical Decision Making - Medical Decision Making Was pt. sent in by a medical professional or institution (, PA, INTERNATIONAL OPERATIONS MANAGER, urgent care, hospital, or [facility]...) When possible be specific @ -Dr. Palencia Did you speak to anyone other than the patient for history (EMS, parent, family, police, friend...)? What history was obtained from this source @ -Dr. Palencia Did you review nursing and triage notes (agree or disagree)? Why? @ -I reviewed and agree with nursing and triage notes Were old charts reviewed (outside hosp., previous admission, EMS record, old EKG, old radiological studies, urgent care reports/EKG's, [facility] records)? Report findings @ -No old charts were reviewed Differential Diagnosis (chest pain, altered mental status, abdominal pain women, abdominal pain men, vaginal bleeding, weakness, fever, dyspnea, syncope, headache, dizziness, GI bleed, back pain, seizure, CVA, palpatations, mental health, musculoskeletal)? @ -Differential Palpitations Ventricular arrhythmias, atrial arrhythmias, myocardial infarction, anemia, thyrotoxicosis, electrolyte imbalance, hypokalemia, pulmonary embolism, pulmonary disease, drugs, alcohol, anxiety, stress.... This is not meant to be an all-inclusive list. EKG interpreted by me (3pts min.). @ -Yes and demonstrates A-fib with a rate of 166. QRS 86. QTc of 372. No acute ST segment elevation or depression X-rays interpreted by me (1pt min.). @ -Yes and demonstrates no acute process CT interpreted by me (1pt min.). @ -None done U/S interpreted by me (1pt. min.). @ -None done What testing was considered but not performed or refused? (CT, X-rays, U/S, labs)? Why? @ -CT of the chest for PE was considered however patient is on anticoagulation and states that she does take her medication as directed What meds were considered but not given or refused? Why? @ -None Did you discuss the management of the patient with other professionals (professionals i.e. , PA, INTERNATIONAL OPERATIONS MANAGER, lab, RT, psych nurse, social work lecturer, filleter, teacher, deputy probation officer, welfare case worker)? Give summary @ -Spoke with Dr. Medina for admission. Also spoke with Dr. Vasquez who originally sent the patient in Was smoking cessation discussed for >3mins.? @ -No Was critical care preformed (if so, how long)? @ -Yes, 40 minutes for management of Cardizem drip Were there social determinants of health that impacted care today? How? (Homelessness, low income, unemployed, alcoholism, drug addiction, transportation, low edu. Level, literacy, decrease access to med. care, fdc, rehab)? @ -No Was there de-escalation of care discussed even if they declined (Discuss DNR or withdrawal of care, Hospice)? DNR status @ -No What co-morbidities impacted this encounter? (DM, HTN, Smoking, COPD, CAD, Cancer, CVA, ARF, Chemo, Hep., AIDS, mental health diagnosis, sleep apnea, morbid obesity)? @ -Breast cancer on chemo, A-fib, coronary artery disease with bypass Was patient admitted / discharged? Hospital course, mention meds given and route, prescriptions, significant lab abnormalities, going to OR and other pertinent info. @ -Upon arrival patient was placed into room 27. Thorough history and physical exam was performed. IV is established. Laboratory studies are conducted. Patient does arrive in A-fib with RVR. Twelve-lead EKG was completed. Patient is initiated on a Cardizem drip under the direction of Dr. Vasquez. He also recommended that she continue her oral anticoagulation. Patient will be admitted with a cardiology consult Undiagnosed new problem with uncertain prognosis? @ -No Drug Therapy requiring intensive monitoring for toxicity (Heparin, Nitro, Insulin, Cardizem)? @ -No Were any procedures done? @ -No Diagnosis/symptom? @ -Acute A-fib with RVR Acute, or Chronic, or Acute on Chronic? @ -Acute Uncomplicated (without systemic symptoms) or Complicated (systemic symptoms)? @ -Complicated Side effects of treatment? @ -No Exacerbation, Progression, or Severe Exacerbation? @ -No Poses a threat to life or bodily function? How? (Chest pain, [place], PR, pneumonia, PE, COPD, DKA, ARF, appy, cholecystitis, CVA, Diverticulitis, Homicidal, Suicidal, threat to staff... and all critical care pts) @ -Yes as patient presents with rapid heart rhythm - Lab Data Result diagrams: 09/24/23 13:16 09/24/23 13:16 Lab Results 09/24/23 09/24/23 09/24/23 Range/Units 13:16 13:16 13:16 WBC 6.9 (3.8-10.6) k/uL RBC 3.62 L (3.80-5.40) m/uL Hgb 11.4 (11.4-16.0) gm/dL Hct 33.9 L (34.0-46.0) % MCV 93.7 (80.0-100.0) fL MCH 31.4 (25.0-35.0) pg MCHC 33.5 (31.0-37.0) g/dL RDW 15.8 H (11.5-15.5) % Plt Count 238 (150-450) k/uL MPV 9.2 Neutrophils % 81 % Lymphocytes % 13 % Monocytes % 4 % Eosinophils % 1 % Basophils % 1 % Neutrophils # 5.6 (1.3-7.7) k/uL Lymphocytes # 0.9 L (1.0-4.8) k/uL Monocytes # 0.3 (0-1.0) k/uL Eosinophils # 0.1 (0-0.7) k/uL Basophils # 0.0 (0-0.2) k/uL PT 11.1 (10.0-12.5) sec INR 1.0 (<1.2) APTT 24.3 (22.0-30.0) sec Sodium 137 (137-145) mmol/L Potassium 3.8 (3.5-5.1) mmol/L Chloride 103 (98-107) mmol/L Carbon Dioxide 27 (22-30) mmol/L Anion Gap 7 mmol/L BUN 7 (7-17) mg/dL Creatinine 0.62 (0.52-1.04) mg/dL Est GFR (CKD-EPI)AfAm >90 (>60 ml/min/1.73 sqM) Est GFR (CKD-EPI)NonAf 87 (>60 ml/min/1.73 sqM) Glucose 134 H (74-99) mg/dL Calcium 8.9 (8.4-10.2) mg/dL Magnesium 1.6 (1.6-2.3) mg/dL Total Bilirubin 0.8 (0.2-1.3) mg/dL AST 17 (14-36) U/L ALT 20 (4-34) U/L Alkaline Phosphatase 130 H (38-126) U/L Troponin I (0.000-0.034) ng/mL Total Protein 5.7 L (6.3-8.2) g/dL Albumin 3.3 L (3.5-5.0) g/dL Digoxin <0.4 ng/mL 09/24/23 Range/Units 13:16 WBC (3.8-10.6) k/uL RBC (3.80-5.40) m/uL Hgb (11.4-16.0) gm/dL Hct (34.0-46.0) % MCV (80.0-100.0) fL MCH (25.0-35.0) pg MCHC (31.0-37.0) g/dL RDW (11.5-15.5) % Plt Count (150-450) k/uL MPV Neutrophils % % Lymphocytes % % Monocytes % % Eosinophils % % Basophils % % Neutrophils # (1.3-7.7) k/uL Lymphocytes # (1.0-4.8) k/uL Monocytes # (0-1.0) k/uL Eosinophils # (0-0.7) k/uL Basophils # (0-0.2) k/uL PT (10.0-12.5) sec INR (<1.2) APTT (22.0-30.0) sec Sodium (137-145) mmol/L Potassium (3.5-5.1) mmol/L Chloride (98-107) mmol/L Carbon Dioxide (22-30) mmol/L Anion Gap mmol/L BUN (7-17) mg/dL Creatinine (0.52-1.04) mg/dL Est GFR (CKD-EPI)AfAm (>60 ml/min/1.73 sqM) Est GFR (CKD-EPI)NonAf (>60 ml/min/1.73 sqM) Glucose (74-99) mg/dL Calcium (8.4-10.2) mg/dL Magnesium (1.6-2.3) mg/dL Total Bilirubin (0.2-1.3) mg/dL AST (14-36) U/L ALT (4-34) U/L Alkaline Phosphatase (38-126) U/L Troponin I <0.012 (0.000-0.034) ng/mL Total Protein (6.3-8.2) g/dL Albumin (3.5-5.0) g/dL Digoxin ng/mL Disposition Clinical Impression: Atrial fibrillation with RVR Disposition: ADMITTED IP TO THIS [facility] Condition: Stable Is patient prescribed a controlled substance at d/c from ED?: No Time of Disposition: 14:19 Decision to Admit Reason: Admit from EC Decision Date: 09/24/23 Decision Time: 14:19
[2023-09-24] MEDS: METOPROLOL TARTRATE 50 MG TAB PO SCH (14:22)
[2023-09-24] MEDS ORDERED: NALOXONE 0.4 MG/ML 1 ML VIAL IV PRN (14:33)
[2023-09-24] MEDS ORDERED: CYCLOBENZAPRINE 10 MG TAB PO PRN (14:38)
[2023-09-24] MEDS ORDERED: ALBUTEROL HFA INHALER INHALATION PRN (14:38)
[2023-09-24] MEDS ORDERED: ONDANSETRON 4 MG TAB PO PRN (14:38)
--- NOTE | 2023-09-24 14:42 | P.CRDCN ---
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 Patient follows in the office with Dr. Palencia. We have been asked to see the patient in consultation for A-fib with RVR. Patient examined at the bedside. Patient was at Dr. Palencia's office today for routine visit. She has been feeling short of breath and having palpitations intermittently since April which she states has been getting worse. An EKG was performed revealing A-fib with RVR. The patient was directed to come to the emergency room. The patient remains in atrial fibrillation with heart rate ranging between 1 50540 upon examination. She does report palpitations. She denies any chest pain or pressure. The patient does report that she was seen by her primary care physician recently and her beta-rolando was discontinued and she was started on digoxin as she states her PCP told her " her beta-rolando was not working anymore". Most recent echoc ardiogram obtained in April 2023 revealing ejection fraction 55 to 60%, mild MR, trace TR. REVIEW OF SYSTEMS: At the time of my exam: CONSTITUTIONAL: Denies fever or chills. HEENT: Denies blurred vision, vision changes, or eye pain. Denies hemoptysis CARDIOVASCULAR: Denies chest pain. Denies orthopnea. Denies PND. Reports palpitations RESPIRATORY: Reports shortness of breath. GASTROINTESTINAL: Denies abdominal pain. Denies nausea or vomiting. HEMATOLOGIC: Denies bleeding disorders. GENITOURINARY: Denies any blood in urine. SKIN: Denies pruitis. Denies rash. PHYSICAL EXAM: VITAL SIGNS: Reviewed. GENERAL: Well-developed in no acute distress. HEENT: Head is normocephalic. Pupils are equal, round. Sclerae anicteric. Mucous membranes of the mouth are moist. Neck supple. No JVD or thyromegaly LUNGS: Respirations even and unlabored. Lungs essentially clear to auscultation bilaterally. HEART: Tachycardic. Irregular rate and rhythm. S1 and S2 heard. ABDOMEN: Soft. Nondistended. Nontender. EXTREMITIES: Normal range of motion. No clubbing or cyanosis. Peripheral pulses intact. No lower extremity edema NEUROLOGIC: Awake and alert. Oriented x 3. ASSESSMENT: Palpitations Shortness of breath Paroxysmal atrial fibrillation with RVR History of breast cancer with previous double mastectomy (2019ish per patient) with newly diagnosed metastasis into the lymph nodes, currently on chemotherapy Valvular heart disease with previous mitral valve repair, details unknown Hypertension Hyperlipidemia COPD Nicotine dependence PLAN: Obtain limited echo tomorrow Begin IV Cardizem bolus and drip Continue Eliquis Begin metoprolol 25 mg twice a day Hold Digoxin Continue telemetry monitoring N.p.o. at midnight Patient will undergo cardioversion tomorrow if she remains in A-fib with RVR Further recommendations pending patient course Nurse practitioner note has been reviewed by physician. Signing provider agrees with the documented findings, assessment, and plan of care documented by [employer] as a scribe. Past Medical History Past Medical History: Atrial Fibrillation, Cancer, COPD, Hyperlipidemia, Hypertension, Mitral Valve Prolapse (MVP) Additional Past Medical History / Comment(s): lt breast cancer. rt groin blood clot after open heart surgery. periodic limb movement disorder History of Any Multi-Drug Resistant Organisms: MRSA Date of last positivie culture/infection: 2015 MDRO Source:: lt chest area Past Surgical History: Bladder Surgery, Breast Surgery, Cholecystectomy, Coronary Bypass/CABG, Hysterectomy, Joint Replacement Additional Past Surgical History / Comment(s): breast augmentation. amadou mastectomy with saline implants amadou and removed, tissue identification officer in place lt svetlana ast, (left breast with lymph nodes removed). OPen heart surgery with repair of mitral valve-05/18/19. joint replacment rt & lt knee, cervical laminectomy. amadou cataract surgery, rt eye implant removed and replaced. bladder suspension. left leg surgery Past Anesthesia/Blood Transfusion Reactions: No Reported Reaction Additional Past Anesthesia/Blood Transfusion Reaction / Comment(s): while in surgery leg movement Past Psychological History: Anxiety, Depression Smoking Status: Former smoker Past Alcohol Use History: None Reported Past Drug Use History: Marijuana - Past Family History Sister(s) Additional Family Medical History / Comment(s): 5 sisters with cancer in their 50's Mother Family Medical History: Cancer, Hypertension Father Family Medical History: Myocardial Infarction ([place]) Additional Family Medical History / Comment(s): in his 50's from a [place] Medications and Allergies Home Medications Medication Instructions Recorded Confirmed Type Apixaban [Eliquis] 5 mg PO BID 03/05/20 09/24/23 History HYDROcodone/APAP 10-325MG [[place] 1 tab PO TID 03/05/20 09/24/23 History 10-325] Pramipexole Di-HCl [Mirapex] 0.5 mg PO BID 03/05/20 09/24/23 History Cyclobenzaprine [Flexeril] 10 mg PO TID PRN 10/02/22 09/24/23 History Albuterol Sulfate [Ventolin HFA] 2 puff INHALATION RT-QID PRN 09/24/23 09/24/23 History Digoxin [Lanoxin] 125 mcg PO DAILY 09/24/23 09/24/23 History Herceptin Hylecta 1 dose IVPB Q21D 09/24/23 09/24/23 History Loperamide HCl [Imodium A-D] 2 mg PO DAILY 09/24/23 09/24/23 History Metoprolol Tartrate [Lopressor] 25 mg PO BID 09/24/23 09/24/23 History Ondansetron [Zofran] 4 mg PO Q4H PRN 09/24/23 09/24/23 History PACLitaxeL [Taxol] 1 dose IVPB FR 09/24/23 09/24/23 History Umeclidinium Brm/Vilanterol Tr 1 puff INHALATION RT-DAILY 09/24/23 09/24/23 History [Anoro Ellipta 62.5-25 Mcg INH] Allergies Allergy/AdvReac Type Severity Reaction Status Date / Time morphine Allergy Anaphylaxis Verified 09/24/23 14:24 Physical Exam Vitals: Vital Signs Temp Pulse Resp BP Pulse Ox 09/24/23 13:20 130 H 20 110/61 93 L 09/24/23 12:45 98.2 F 102 H 20 106/71 94 L Intake and Output 09/23/23 09/24/23 09/24/23 22:59 06:59 14:59 Other: Weight 86.183 kg Results 09/24/23 13:16 09/24/23 13:16 Cardiac Enzymes 09/24/23 Range/Units 13:16 AST 17 (14-36) U/L Coagulation 09/24/23 Range/Units 13:16 PT 11.1 (10.0-12.5) sec APTT 24.3 (22.0-30.0) sec CBC 09/24/23 Range/Units 13:16 WBC 6.9 (3.8-10.6) k/uL RBC 3.62 L (3.80-5.40) m/uL Hgb 11.4 (11.4-16.0) gm/dL Hct 33.9 L (34.0-46.0) % Plt Count 238 (150-450) k/uL Comprehensive Metabolic Panel 09/24/23 Range/Units 13:16 Sodium 137 (137-145) mmol/L Potassium 3.8 (3.5-5.1) mmol/L Chloride 103 (98-107) mmol/L Carbon Dioxide 27 (22-30) mmol/L BUN 7 (7-17) mg/dL Creatinine 0.62 (0.52-1.04) mg/dL Glucose 134 H (74-99) mg/dL Calcium 8.9 (8.4-10.2) mg/dL AST 17 (14-36) U/L ALT 20 (4-34) U/L Alkaline Phosphatase 130 H (38-126) U/L Total Protein 5.7 L (6.3-8.2) g/dL Albumin 3.3 L (3.5-5.0) g/dL Current Medications Generic Name Dose Route Start Last Admin Trade Name Freq PRN Reason Stop Dose Admin Diltiazem HCl 125 mg/ Sodium 125 mls @ 5 mls/hr 09/24/23 14:00 Chloride IV .Q24H VIVIENNE 5 MG/HR Intake and Output 09/23/23 09/24/23 09/24/23 22:59 06:59 14:59 Other: Weight 86.183 kg Patient Weight 09/25/23 06:59 Weight 86.183 kg 09/24/23 13:16 09/24/23 13:16
[2023-09-24] MEDS: METOPROLOL TARTRATE 5 MG/5 ML VIAL IVP SCH (15:04)
--- NOTE | 2023-09-24 15:23 | P.HPIM ---
History of Present Illness H&P Date: 09/24/23 History of Presenting Illness: Patient is a very pleasant 78-year-old female with a past medical history of breast cancer with lymph node metastasis status post bilateral mastectomy currently undergoing chemotherapy with Taxol follows Dr. Goetz, chronic atrial fibrillation on anticoagulation with Eliquis and follows Dr. Palencia, mitral valve prolapse status postrepair, hypertension, hyperlipidemia, cataracts, right eye implant, and right groin blood clot status post open heart surgery for repair of mitral valve. She presented to the emergency department from cardiology office where she presented for a routine appointment with Dr. Palencia and was found to be in A-fib RVR. Patient reports feeling her heart racing and pounding out of her chest the past couple of days, but due to her chemotherapy she was trying to stay away from the hospital and exposure to illness. She denies having any headache, lightheadedness, dizziness, chest pain, shortness of breath, nausea, vomiting, or experiencing any numbness/tingling/weakness/swelling in her extremities. Patient does report chemotherapy-induced diarrhea a few times a day which she reports is normal from her chemotherapy treatments. She denies having any abdominal pain, dark tarry stool or noting any blood in her stool. She underwent full evaluation in the emergency department. Vital signs upon arrival show blood pressure 106/71, heart rate fluctuating between 130s to 160s, respiratory rate 20, temp 98.2 F, and SpO2 of 94% on room air. EKG completed showing atrial fibrillation with RVR at 166 bpm. Chest x-ray completed reporting mildly enlarged cardiac silhouette otherwise negative for acute cardiopulmonary assess. Labs completed and reviewed. CBC showing no significant abnormalities with WBC count of 6.9, hemoglobin 11.4, and platelet count of 238. Coagulation profile normal findings. BMP unremarkable. Glucose 134. Liver profile showing slight elevation of alkaline phosphatase at 130 otherwise normal findings. Troponin was negative at less than 0.012. Digoxin level less than 0.4. Patient was given Cardizem bolus and started on Cardizem infusion. She was admitted under our services with consultation to cardiology. Review of systems: Pertinent positives and negatives as discussed in HPI, a complete review of systems was performed and all other systems are negative. Physical exam: Vital signs reviewed General: Nontoxic, no distress and appears stated age. Derm: Skin warm and dry, normal coloration for ethnicity. Head: Atraumatic, normocephalic and symmetric. Eyes: Right eye implant Mouth: no lip lesions, mucus membranes moist Cardiovascular: Irregularly irregular, no noted murmur, positive posterior tibial pulses bilaterally, and cap refill < 2 seconds. Lungs: Respirations even, regular, and unlabored on room air. Lungs CTA bilaterally, no rhonchi, no rales, no wheezing, and no accessory muscle usage. Abdominal: soft, nontender to palpation, no guarding, no appreciable organomegaly Ext: ROM intact. No gross muscle atrophy, no edema, no contractures Neuro: Speech clear, face symmetrical and CN II-XII grossly intact with no noted focal neuro deficits Psych: Alert and oriented to person, place, time, and situation. Appropriate and pleasant affect. Assessment and Plan of Care: Atrial fibrillation with RVR Mitral valve prolapse status post repair Hypertension Hyperlipidemia -RVR maintaining in 160s on Cardizem infusion, ordered metoprolol 2.5 mg IVP every 5 minutes x 2 doses successfully controlling ventricular rate in 90s -EKG completed showing atrial fibrillation with RVR at 166 bpm. -Continue Cardizem infusion 5 mg/h -Resume metoprolol 25 mg twice daily and continue Eliquis 5 mg twice daily -Cardiology following, appreciate recommendations -Patient to remain on continuous telemetry monitoring Breast cancer with lymph node mets diastasis status post bilateral mastectomy -Patient currently undergoing chemotherapy with Taxol -Last dose of chemotherapy was 09/18/2023. -Consult placed to oncology as patient follows Dr. Goetz. Chemotherapy-induced diarrhea -Patient denies excessive diarrhea states a few episodes daily, and with her chemotherapy takes Imodium at home. -Order placed for Imodium 2 mg 4 times daily as needed for diarrhea. -Monitor for signs/symptoms of dehydration, currently does not show any. Data and imaging reviewed: As stated above in HPI The patient is admitted with an anticipated greater than 2 midnight stay for evaluation of atrial fibrillation with RVR CODE STATUS: Full code DVT prophylaxis: Eliquis Anticipated discharge date: Clinical course to determine Anticipated discharge place: Home Patient was seen independently by Nurse Practitioner. This document was prepared using [employer] dictation software. Please allow for errors in crusher and blender operator while rare they do occur. I reviewed the documentation as provided by the SAMANTHA above, who is the original author of this note. I agree with the documented assessment and plan, with the following changes: none Past Medical History Past Medical History: Atrial Fibrillation, Cancer, COPD, Hyperlipidemia, Hypertension, Mitral Valve Prolapse (MVP) Additional Past Medical History / Comment(s): lt breast cancer. rt groin blood clot after open heart surgery. periodic limb movement disorder History of Any Multi-Drug Resistant Organisms: MRSA Date of last positivie culture/infection: 2015 MDRO Source:: lt chest area Past Surgical History: Bladder Surgery, Breast Surgery, Cholecystectomy, Coronary Bypass/CABG, Hysterectomy, Joint Replacement Additional Past Surgical History / Comment(s): breast augmentation. 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 OPen heart surgery with repair of mitral valve-05/18/19. joint replacment rt & lt knee, cervical laminectomy. amadou cataract surgery, rt eye implant removed and replaced. bladder suspension. left leg surgery Past Anesthesia/Blood Transfusion Reactions: No Reported Reaction Additional Past Anesthesia/Blood Transfusion Reaction / Comment(s): while in surgery leg movement Past Psychological History: Anxiety, Depression Smoking Status: Former smoker Past Alcohol Use History: None Reported Past Drug Use History: Marijuana - Past Family History Sister(s) Additional Family Medical History / Comment(s): 5 sisters with cancer in their 50's Mother Family Medical History: Cancer, Hypertension Father Family Medical History: Myocardial Infarction ([place]) Additional Family Medical History / Comment(s): in his 50's from a [place] Medications and Allergies Home Medications Medication Instructions Recorded Confirmed Type Apixaban [Eliquis] 5 mg PO BID 03/05/20 09/24/23 History HYDROcodone/APAP 10-325MG [[place] 1 tab PO TID 03/05/20 09/24/23 History 10-325] Pramipexole Di-HCl [Mirapex] 0.5 mg PO BID 03/05/20 09/24/23 History Cyclobenzaprine [Flexeril] 10 mg PO TID PRN 10/02/22 09/24/23 History Albuterol Sulfate [Ventolin HFA] 2 puff INHALATION RT-QID PRN 09/24/23 09/24/23 History Herceptin Hylecta 1 dose IVPB Q21D 09/24/23 09/24/23 History Loperamide HCl [Imodium A-D] 2 mg PO DAILY 09/24/23 09/24/23 History Ondansetron [Zofran] 4 mg PO Q4H PRN 09/24/23 09/24/23 History PACLitaxeL [Taxol] 1 dose IVPB FR 09/24/23 09/24/23 History Umeclidinium Brm/Vilanterol Tr 1 puff INHALATION RT-DAILY 09/24/23 09/24/23 History [Anoro Ellipta 62.5-25 Mcg INH] Metoprolol Tartrate [Lopressor] 50 mg PO BID 90 Days #180 tab 09/25/23 Rx Allergies Allergy/AdvReac Type Severity Reaction Status Date / Time morphine Allergy Anaphylaxis Verified 09/24/23 14:24 Physical Exam Osteopathic Statement: *. No significant issues noted on an osteopathic structural exam other than those noted in the History and Physical/Consult. Vitals: Vital Signs Temp Pulse Resp BP Pulse Ox 09/24/23 15:15 93 20 106/53 93 L 09/24/23 15:08 137 H 20 106/53 09/24/23 15:00 163 H 20 108/62 95 09/24/23 13:20 130 H 20 110/61 93 L 09/24/23 12:45 98.2 F 102 H 20 106/71 94 L Intake and Output 09/24/23 09/24/23 09/24/23 06:59 14:59 22:59 Other: Weight 86.183 kg Results CBC & Chem 7: 09/25/23 07:55 09/25/23 07:55 Labs: Abnormal Lab Results - Last 24 Hours (Table) 09/24/23 09/24/23 Range/Units 13:16 13:16 RBC 3.62 L (3.80-5.40) m/uL Hct 33.9 L (34.0-46.0) % RDW 15.8 H (11.5-15.5) % Lymphocytes # 0.9 L (1.0-4.8) k/uL Glucose 134 H (74-99) mg/dL Alkaline Phosphatase 130 H (38-126) U/L Total Protein 5.7 L (6.3-8.2) g/dL Albumin 3.3 L (3.5-5.0) g/dL
[2023-09-24] MEDS: HYDROcodone/APAP 10-325MG 1 EACH TAB PO SCH (16:12)
[2023-09-24] MEDS ORDERED: LOPERAMIDE 2 MG CAP PO PRN (17:31)
[2023-09-24] MEDS: SODIUM CHLORIDE 0.9% 500 ML 500 ML IV ONE (18:26)
[2023-09-24] MEDS ORDERED: APIXABAN 5 MG TAB PO SCH (21:00)
[2023-09-24] MEDS: APIXABAN 5 MG TAB PO SCH (21:20)
[2023-09-24] MEDS: METOPROLOL TARTRATE 25 MG TAB PO SCH (21:20)
[2023-09-24] MEDS: PRAMIPEXOLE 0.5 MG TAB PO SCH (21:20)
[2023-09-25] MEDS: LOPERAMIDE 2 MG CAP PO SCH (08:26)
[2023-09-25 09:16] LABS: Anisocytosis Slight; Basophils % (A) 1 %; Eosinophils # (A) 0.1 k/uL (0-0.7); Eosinophils % (A) 2 %; HCT 34.4 % (34.0-46.0); HGB 11.3 gm/dL (11.4-16.0); Lymphocytes % (A) 14 %; MCH 31.7 pg (25.0-35.0); MCHC 32.8 g/dL (31.0-37.0); MCV 96.5 fL (80.0-100.0); Macrocytosis Slight; Monocytes # (A) 0.3 k/uL (0-1.0); Monocytes % (A) 5 %; Neutrophils # (A) 5.8 k/uL (1.3-7.7); Neutrophils % (A) 79 %; Platelet Count 217 k/uL (150-450); RBC 3.56 m/uL (3.80-5.40); RDW 16.1 % (11.5-15.5); WBC 7.4 k/uL (3.8-10.6)
[2023-09-25] MEDS: FORMOTEROL FUMARATE 20 MCG/2 ML NEBU INHALATION SCH (09:20)
[2023-09-25] MEDS: IPRATROPIUM 0.5 MG/2.5 ML NEBU INHALATION SCH (09:20)
[2023-09-25 09:50] LABS: African American GFR (CKD) >90 (>60 ml/min/1.73 sqM); Anion Gap 8 mmol/L; Blood Urea Nitrogen 8 mg/dL (7-17); Calcium 8.8 mg/dL (8.4-10.2); Carbon Dioxide 26 mmol/L (22-30); Chloride 102 mmol/L (98-107); Glucose 103 mg/dL (74-99); Non-African American GFR(CKD) 86 (>60 ml/min/1.73 sqM); Potassium 4.2 mmol/L (3.5-5.1); Sodium 136 mmol/L (137-145)
--- NOTE | 2023-09-25 10:44 | CA ---
Transthoracic Echo Report Name: Bobbi Perez Age: 78 Gender: F : 1945 Exam Date: 09/25/2023 08:51 Exam Location: [facility] Ht (in): 65 Wt (lb): 190 Ordering Physician: Kayleigh Sauceda Attending/Referring Phys: [id number], [employer] Head ML Procedure CPT: Indications: LV function, AF Cardiac Hx: Technical Quality: Contrast 1: Definity Total Dose (mL): 2 Contrast 2: Total Dose (mL): MEASUREMENTS (Male / Female) Normal Values 2D ECHO LV Diastolic Diameter PLAX 4.0 cm 4.2 - 5.9 / 3.9 - 5.3 cm LV Systolic Diameter PLAX 2.8 cm IVS Diastolic Thickness 1.0 cm 0.6 - 1.0 / 0.6 - 0.9 cm LVPW Diastolic Thickness 0.9 cm 0.6 - 1.0 / 0.6 - 0.9 cm LV Relative Wall Thickness 0.5 Aortic Root Diameter 2.9 cm LA Systolic Diameter LX 4.6 cm 3.0 - 4.0 / 2.7 - 3.8 cm FINDINGS Left Ventricle Mildly increased septal wall thickness. Left ventricular ejection fraction is estimated at 55-60%. Right Ventricle Right Atrium Left Atrium Moderately increased left atrial diameter. Mitral Valve Aortic Valve Tricuspid Valve Pulmonic Valve Pericardium Aorta CONCLUSIONS Normal LV function Previewed by: Dr. Crow Vazquez MD (Electronically Signed) Final Date: 25 September 2023 10:43
--- NOTE | 2023-09-25 11:13 | P.PN ---
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 Patient follows in the office with Dr. Palencia. We have been asked to see the patient in consultation for A-fib with RVR. Patient examined at the bedside. Patient was at Dr. Palencia's office today for routine visit. She has been feeling short of breath and having palpitations intermittently since April which she states has been getting worse. An EKG was performed revealing A-fib with RVR. The patient was directed to come to the emergency room. The patient remains in atrial fibrillation with heart rate ranging between 1 [id number] upon examination. She does report palpitations. She denies any chest pain or pressure. The patient does report that she was seen by her primary care physician recently and her beta-rolando was discontinued and she was started on digoxin as she states her PCP told her " her beta-rolando was not working anymore". Most recent echocardiogram obtained in April 2023 revealing ejection fraction 55 to 60%, mild MR, trace TR. 09/25/2023 Patient examined this morning at the bedside. Patient denies chest pain or pressure. She denies shortness of breath. Patient did convert to sinus mechan ism. She did have a few short runs of atrial fibrillation this morning. Vital signs are stable. Limited echo obtained revealing ejection fraction 55 to 60%. PHYSICAL EXAM: VITAL SIGNS: Reviewed. GENERAL: Well-developed in no acute distress. HEENT: Head is normocephalic. Pupils are equal, round. Sclerae anicteric. Mucous membranes of the mouth are moist. Neck supple. No JVD or thyromegaly LUNGS: Respirations even and unlabored. Lungs essentially clear to auscultation bilaterally. HEART: Regular rate and rhythm. S1 and S2 heard. ABDOMEN: Soft. Nondistended. Nontender. EXTREMITIES: Normal range of motion. No clubbing or cyanosis. Peripheral pulses intact. No lower extremity edema NEUROLOGIC: Awake and alert. Oriented x 3. ASSESSMENT: Palpitations Shortness of breath Paroxysmal atrial fibrillation with RVR History of breast cancer with previous double mastectomy (2018ish per patient) with newly diagnosed metastasis into the lymph nodes, currently on chemotherapy Valvular heart disease with previous mitral valve repair, details unknown Hypertension Hyperlipidemia COPD Nicotine dependence PLAN: Discontinue IV Cardizem Continue anticoagulation with Eliquis Increase metoprolol to 50 mg twice a day Do not resume digoxin upon discharge Patient may be discharged home this afternoon if she remains stable Patient to follow-up postdischarge with Dr. Palencia Nurse practitioner note has been reviewed by physician. Signing provider agrees with the documented findings, assessment, and plan of care documented by INVASIVE CARDIOLOGIST as a scribe. Objective - Vital Signs Vital signs: Vital Signs Temp 98.2 F 09/25/23 08:20 Pulse 84 09/25/23 08:20 Resp 18 09/25/23 08:20 BP 117/70 09/25/23 08:20 Pulse Ox 95 09/25/23 08:20 FiO2 Intake & Output 09/24/23 09/25/23 09/25/23 18:59 06:59 18:59 Intake Total 21.667 100 Balance 21.667 100 Weight 86.183 kg 86.183 kg Intake: Intake, IV Titration 21.667 Amount Diltiazem 125 mg In 21.667 Sodium Chloride 0.9% 100 ml @ 5 MG/HR 5 mls/hr IV .Q24H [facility] Rx#:[id number] Oral 100 Other: Voiding Method Toilet # Voids 1 - Labs CBC & Chem 7: 09/25/23 07:55 09/25/23 07:55 Labs: Abnormal Lab Results - Last 24 Hours (Table) 09/24/23 09/24/23 09/25/23 Range/Units 13:16 13:16 07:55 RBC 3.62 L 3.56 L (3.80-5.40) m/uL Hgb 11.3 L (11.4-16.0) gm/dL Hct 33.9 L (34.0-46.0) % RDW 15.8 H 16.1 H (11.5-15.5) % Lymphocytes # 0.9 L (1.0-4.8) k/uL Sodium (137-145) mmol/L Glucose 134 H (74-99) mg/dL Alkaline Phosphatase 130 H (38-126) U/L Total Protein 5.7 L (6.3-8.2) g/dL Albumin 3.3 L (3.5-5.0) g/dL 09/25/23 Range/Units 07:55 RBC (3.80-5.40) m/uL Hgb (11.4-16.0) gm/dL Hct (34.0-46.0) % RDW (11.5-15.5) % Lymphocytes # (1.0-4.8) k/uL Sodium 136 L (137-145) mmol/L Glucose 103 H (74-99) mg/dL Alkaline Phosphatase (38-126) U/L Total Protein (6.3-8.2) g/dL Albumin (3.5-5.0) g/dL
[2023-09-25] MEDS: METOPROLOL TARTRATE 25 MG TAB PO STA (12:12)
--- NOTE | 2023-09-25 12:28 | P.CONS ---
History of Present Illness - Reason for Consult Consult date: 09/25/23 metastatic breast cancer Requesting physician: Simba Gentile - Chief Complaint a-fib - History of Present Illness Patient is a 78 year old female with a significant history of metastatic breast cancer and a-fib anticoagulated with Eliquis. She is a patient of Dr. Goetz. S he was diagnosed with left breast cancer in 2018, then had a screen-detected small left breast lesion. 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 She was seen by Dr Shah, Oncotype-DX was 28%, and started on Anastrazole which she continues to take to date. Patient denied being offered chemotherapy or radiation therapy following mastectomies in 2018. She was then hospitalized at [facility] and CTA revealed mediastinal & bilateral axillary lymphadenopathy, largest 2 cm L axillary lesion. US-Guided core biopsy at [facility] revealed Grade II invasive ductal carcinoma ER/MD 90%/10% [id number] +2 by IHC and positive by FISH. PET Scan Jun 2021 revealed moderate uptake of 3.4 in L axillary lymph node. Patient established care in our clinic in June 2023. PET/CT obtained on 07/10/23 revealed diffuse metastatic disease in all lymphatics node groups in chest, abdomen & pelvis. Recommended patient be started on weekly Taxol and Herceptin every 3 weeks. Completed last cycle on 09/18/23. She has been tolerating regimen well Patient presented to emergency room for A. fib with RVR. Patient was being seen and her wood engraver at which time she was noted to be in A. fib with RVR and was referred to the emergency room for further evaluation. Patient reports she was experiencing palpitations at that time. Patient was started on Cardizem drip. Chest x-ray obtained revealed no focal area of consolidation. Cardiac silhouette mildly enlarged and the pulmonary vessels are within normal limits. CBC reviewed, WBC 7.4, hemoglobin 11.3, platelets 217,000. Coags WNL. Creatinine 0.6. Potassium 3.8, magnesium 1.6. Troponin negative. At today's visit patient is reporting fatigue but denies chest pain shortness of breath and dizziness. Patient is in normal sinus rhythm with heart rate in the 80s. Patient also reporting cough with white sputum production but reports this is chronic and there's no changes from baseline. Denies fever and chills. Review of Systems 10 point ROS is negative except as stated in the HPI Past Medical History Past Medical History: Atrial Fibrillation, Cancer, COPD, Hyperlipidemia, Hypertension, Mitral Valve Prolapse (MVP) Additional Past Medical History / Comment(s): lt breast cancer. rt groin blood clot after open heart surgery. periodic limb movement disorder History of Any Multi-Drug Resistant Organisms: MRSA Year Discovered:: 2015 MDRO Source:: lt chest area Past Surgical History: Bladder Surgery, Breast Surgery, Cholecystectomy, Coronary Bypass/CABG, Hysterectomy, Joint Replacement Additional Past Surgical History / Comment(s): breast augmentation. 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 OPen heart surgery with repair of mitral valve-05/18/19. joint replacment rt & lt knee, cervical laminectomy. amadou cataract surgery, rt eye implant removed and replaced. bladder suspension. left leg surgery Past Anesthesia/Blood Transfusion Reactions: No Reported Reaction Additional Past Anesthesia/Blood Transfusion Reaction / Comm: while in surgery leg movement Past Psychological History: Anxiety, Depression Smoking Status: Former smoker Past Alcohol Use History: None Reported Additional Past Alcohol Use History / Comment(s): smoker off and on since age 17, couple times a week smokes after dinner, quit in 2019 Past Drug Use History: Marijuana Additional Drug Use History / Comment(s): medical marijuana - Past Family History Sister(s) Additional Family Medical History / Comment(s): 5 sisters with cancer in their 50's Mother Family Medical History: Cancer, Hypertension Father Family Medical History: Myocardial Infarction ([place]) Additional Family Medical History / Comment(s): in his 50's from a [place] Medications and Allergies Home Medications Medication Instructions Recorded Confirmed Type Apixaban [Eliquis] 5 mg PO BID 03/05/20 09/24/23 History HYDROcodone/APAP 10-325MG [[place] 1 tab PO TID 03/05/20 09/24/23 History 10-325] Pramipexole Di-HCl [Mirapex] 0.5 mg PO BID 03/05/20 09/24/23 History Cyclobenzaprine [Flexeril] 10 mg PO TID PRN 10/02/22 09/24/23 History Albuterol Sulfate [Ventolin HFA] 2 puff INHALATION RT-QID PRN 09/24/23 09/24/23 History Digoxin [Lanoxin] 125 mcg PO DAILY 09/24/23 09/24/23 History Herceptin Hylecta 1 dose IVPB Q21D 09/24/23 09/24/23 History Loperamide HCl [Imodium A-D] 2 mg PO DAILY 09/24/23 09/24/23 History Metoprolol Tartrate [Lopressor] 25 mg PO BID 09/24/23 09/24/23 History Ondansetron [Zofran] 4 mg PO Q4H PRN 09/24/23 09/24/23 History PACLitaxeL [Taxol] 1 dose IVPB FR 09/24/23 09/24/23 History Umeclidinium Brm/Vilanterol Tr 1 puff INHALATION RT-DAILY 09/24/23 09/24/23 History [Anoro Ellipta 62.5-25 Mcg INH] Allergies Allergy/AdvReac Type Severity Reaction Status Date / Time morphine Allergy Anaphylaxis Verified 09/24/23 14:24 Physical Exam Vitals: Vital Signs Temp Pulse Pulse Pulse Resp BP BP 09/25/23 08:20 98.2 F 84 18 117/70 09/25/23 03:50 79 16 103/62 09/25/23 01:55 79 09/25/23 00:31 79 17 102/65 09/24/23 21:51 80 09/24/23 20:38 97.8 F 80 19 126/63 09/24/23 19:54 18 102/55 09/24/23 18:27 80 20 93/49 09/24/23 17:20 93 22 96/53 09/24/23 16:11 101 H 20 124/71 09/24/23 15:15 93 20 106/53 09/24/23 15:08 137 H 20 106/53 09/24/23 15:00 163 H 20 108/62 09/24/23 13:20 130 H 20 110/61 09/24/23 12:45 98.2 F 102 H 20 106/71 Pulse Ox 09/25/23 08:20 95 03/08/24 03:50 94 L 09/25/23 01:55 09/25/23 00:31 100 09/24/23 21:51 09/24/23 20:38 95 09/24/23 19:54 09/24/23 18:27 09/24/23 17:20 94 L 09/24/23 16:11 93 L 09/24/23 15:15 93 L 09/24/23 15:08 09/24/23 15:00 95 09/24/23 13:20 93 L 09/24/23 12:45 94 L Intake and Output 09/24/23 09/25/23 09/25/23 22:59 06:59 14:59 Intake Total 121.667 Balance 121.667 Intake: Intake, IV Titration 21.667 Amount Diltiazem 125 mg In 21.667 Sodium Chloride 0.9% 100 ml @ 5 MG/HR 5 mls/hr IV .Q24H [facility] Rx#:[id number] Oral 100 Other: Voiding Method Toilet Toilet # Voids 1 Weight 86.183 kg - Constitutional General appearance: average body habitus, no acute distress - EENT Eyes: anicteric sclerae, EOMI ENT: hearing grossly normal - Respiratory breathing even and unlabored. Coarse breath sounds throughout with rhonchi noted bilaterally in all lemus - Cardiovascular Rhythm: regular Heart sounds: normal: S1, S2 - Gastrointestinal General gastrointestinal: soft, no tenderness - Integumentary Integumentary: no cyanotic - Neurologic grossly intact - Musculoskeletal Musculoskeletal: strength equal bilaterally - Psychiatric Psychiatric: A&O x's 3 Results CBC & Chem 7: 09/25/23 07:55 09/25/23 07:55 Labs: Abnormal Lab Results - Last 24 Hours (Table) 09/24/23 09/24/23 09/25/23 Range/Units 13:16 13:16 07:55 RBC 3.62 L 3.56 L (3.80-5.40) m/uL Hgb 11.3 L (11.4-16.0) gm/dL Hct 33.9 L (34.0-46.0) % RDW 15.8 H 16.1 H (11.5-15.5) % Lymphocytes # 0.9 L (1.0-4.8) k/uL Glucose 134 H (74-99) mg/dL Alkaline Phosphatase 130 H (38-126) U/L Total Protein 5.7 L (6.3-8.2) g/dL Albumin 3.3 L (3.5-5.0) g/dL Chest x-ray: report reviewed Assessment and Plan (1) Breast cancer Current Visit: Yes Status: Acute Priority: High Code(s): C50.919 - M ALIGNANT NEOPLASM OF UNSP SITE OF UNSPECIFIED FEMALE BREAST SNOMED Code(s): 691772592 (2) Atrial fibrillation with RVR Current Visit: Yes Status: Acute Priority: High Code(s): I48.91 - UNSPECIFIED ATRIAL FIBRILLATION SNOMED Code(s): 113598045146658 Plan: Atrial fibrillation with RVR: Presented with palpitations, and was sent by cardiology for A. fib with RVR noted during office visit. Hx of a-fib anticoagulated with Eliquis. Reports being complaint with Eliquis and cardiac medications. Patient was started on Cardizem drip and has since converted to NSR. Denies SOB, CP and dizziness -Chest x-ray obtained revealed no focal area of consolidation. Cardiac silhouette mildly enlarged and the pulmonary vessels are within normal limits. -Coags WNL. Potassium 3.8, magnesium 1.6 troponin negative. -Echocardiogram from 05/14/23 revealed left ventricular ejection fraction estimated at 5560%, with no obvious regional wall motion abnormality and no significant valvular dysfunction. Repeat echocardiogram obtained this morning, results pending. Will await findings for comparison to previously obtained echo, to ensure no findings in reduction in EF as patient is on active treatment with herceptin Metastatic breast cancer: -Full history as described in HPI -PET/CT obtained on 07/10/23 revealed diffuse metastatic disease in all lymphatics node groups in chest, abdomen & pelvis -Recommended patient be started on weekly Taxol and Herceptin every 3 weeks. Completed last cycle on 09/18/23. She has been tolerating regimen well -Counts stable, WBC 7.4, hemoglobin 11.3, platelets 217,000 -She was scheduled to have chemo today. Will reschedule for next week, pending echocardiogram report
[2023-09-25 12:56] VITALS: TEMP 98
[2023-09-25 16:12] VITALS: BP 131/66; PULSE 87; RESP 18
--- NOTE | 2023-09-25 16:30 | P.DS ---
Providers Date of admission: 09/24/23 14:38 Expected date of discharge: 09/25/23 Attending physician: Haley Lazcano DO Consults: 09/24/23 14:33 Consult Physician Urgent Consulting Provider: [facility] Consult Reason/Comments: afib with rvr Do you want consulting provider notified?: Yes 09/24/23 17:35 Consult Physician Routine Consulting Provider: Oral Goetz Consult Reason/Comments: metastatic breast cancer undergoing chemo Do you want consulting provider notified?: Yes [facility] care [facility] Hospital Course: Discharge Diagnosis: Atrial fibrillation with RVR Mitral valve prolapse status post repair Hypertension Hyperlipidemia Breast cancer with lymph node mets diastasis status post bilateral mastectomy Chemotherapy-induced diarrhea Hospital Course: Patient is a very pleasant 78-year-old female with a past medical history of breast cancer with lymph node metastasis status post bilateral mastectomy currently undergoing chemotherapy with Taxol follows Dr. Goetz, chronic atrial fibrillation on anticoagulation with Eliquis and follows Dr. Palencia, mitral valve prolapse status postrepair, hypertension, hyperlipidemia, cataracts, right eye implant, and right groin blood clot status post open heart surgery for repair of mitral valve. She presented to the emergency department from cardiology office where she presented for a routine appointment with Dr. Palencia and was found to be in A-fib RVR. Patient reports feeling her heart racing and pounding out of her chest the past couple of days, but due to her chemotherapy she was trying to stay away from the hospital and exposure to illness. She denies having any headache, lightheadedness, dizziness, chest pain, shortness of breath, nausea, vomiting, or experiencing any numbness/tingling/weakness/swelling in her extremities. Patient does report chemotherapy-induced diarrhea a few times a day which she reports is normal from her chemotherapy treatments. She denies having any abdominal pain, dark tarry stool or noting any blood in her stool. She underwent full evaluation in the emergency department. Vital signs upon arrival show blood pressure 106/71, heart rate fluctuating between 130s to 160s, respiratory rate 20, temp 98.2 F, and SpO2 of 94% on room air. EKG completed showing atrial fibrillation with RVR at 166 bpm. Chest x-ray completed reporting mildly enlarged cardiac silhouette otherwise negative for acute cardiopulmonary assess. Labs completed and reviewed. CBC showing no significant abnormalities with WBC count of 6.9, hemoglobin 11.4, and platelet count of 238. Coagulation profile normal findings. BMP unremarkable. Glucose 134. Liver profile showing slight elevation of alkaline phosphatase at 130 otherwise normal findings. Troponin was negative at less than 0.012. Digoxin level less than 0.4. Patient was given Cardizem bolus and started on Cardizem infusion. She was admitted under our services with consultation to cardiology. RVR was maintaining in 160s on Cardizem infusion, patient was given metoprololl 2.5 mg IVP x 2 doses successfully controlling ventricular rate in 90s and later converting to normal sinus rhythm. Cardiology evaluated increased patient's home metoprolol to 50 mg twice daily. Echocardiogram was completed showing preserved EF of 55 to 60% with no significant valvular or structural abnormalities reported. Patient continues to maintain sinus mechanism with heart rate in 80s. Patient is cleared from cardiac perspective for discharge. Oncology has arranged for patient to receive chemotherapy next week since she missed todays treatment. Patient is medically stable for discharge home at this time. Patient to follow-up with PCP in 1 to 2 days, animal husbandman in 1 week, and with oncologist as scheduled. Physical exam: Vital signs reviewed General: Nontoxic, no distress and appears stated age. Derm: Skin warm and dry, normal coloration for ethnicity. Head: Atraumatic, normocephalic and symmetric. Eyes: Right eye implant Mouth: no lip lesions, mucus membranes moist Cardiovascular: Irregularly irregular, no noted murmur, positive posterior tibial pulses bilaterally, and cap refill < 2 seconds. Lungs: Respirations even, regular, and unlabored on room air. Lungs CTA bilaterally, no rhonchi, no rales, no wheezing, and no accessory muscle usage. Abdominal: soft, nontender to palpation, no guarding, no appreciable organomegaly Ext: ROM intact. No gross muscle atrophy, no edema, no contractures Neuro: Speech clear, face symmetrical and CN II-XII grossly intact with no noted focal neuro deficits Psych: Alert and oriented to person, place, time, and situation. Appropriate and pleasant affect. A total of 32 minutes of time were spent preparing this complex discharge summary. Pt was discharged on 09/25/2023 at 4:21 PM. Patient was seen independently by Nurse Practitioner. This document was prepared using [employer] dictation software. Please allow for errors in senior solutions architect while rare they do occur. I reviewed the documentation as provided by the SAMANTHA above, who is the original author of this note. I agree with the documented assessment and plan, with the following changes: none Patient Condition at Discharge: Stable Plan - Discharge Summary New Discharge Prescriptions: New Metoprolol Tartrate [Lopressor] 50 mg PO BID 90 Days #180 tab Continue Apixaban [Eliquis] 5 mg PO BID HYDROcodone/APAP 10-325MG [Ballinger 10-325] 1 tab PO TID Pramipexole Di-HCl [Mirapex] 0.5 mg PO BID Herceptin Hylecta 1 dose IVPB Q21D Loperamide HCl [Imodium A-D] 2 mg PO DAILY Ondansetron [Zofran] 4 mg PO Q4H PRN PRN Reason: Nausea Cyclobenzaprine [Flexeril] 10 mg PO TID PRN PRN Reason: Muscle Spasm PACLitaxeL [Taxol] 1 dose IVPB FR Umeclidinium Brm/Vilanterol Tr [Anoro Ellipta 62.5-25 Mcg INH] 1 puff INHALATION RT-DAILY Albuterol Sulfate [Ventolin HFA] 2 puff INHALATION RT-QID PRN PRN Reason: Shortness Of Breath Discontinued Metoprolol Tartrate [Lopressor] 25 mg PO BID Digoxin [Lanoxin] 125 mcg PO DAILY Discharge Medication List Apixaban [Eliquis] 5 mg PO BID 03/05/20 [History] HYDROcodone/APAP 10-325MG [Ballinger 10-325] 1 tab PO TID 03/05/20 [History] Pramipexole Di-HCl [Mirapex] 0.5 mg PO BID 03/05/20 [History] Cyclobenzaprine [Flexeril] 10 mg PO TID PRN 10/02/22 [History] Albuterol Sulfate [Ventolin HFA] 2 puff INHALATION RT-QID PRN 09/24/23 [History] Herceptin Hylecta 1 dose IVPB Q21D 09/24/23 [History] Loperamide HCl [Imodium A-D] 2 mg PO DAILY 09/24/23 [History] Ondansetron [Zofran] 4 mg PO Q4H PRN 09/24/23 [History] PACLitaxeL [Taxol] 1 dose IVPB FR 09/24/23 [History] Umeclidinium Brm/Vilanterol Tr [Anoro Ellipta 62.5-25 Mcg INH] 1 puff INHALATION RT-DAILY 09/24/23 [History] Metoprolol Tartrate [Lopressor] 50 mg PO BID 90 Days #180 tab 09/25/23 [Rx] Follow up Appointment(s)/Referral(s): Kartik Palencia MD [STAFF PHYSICIAN] - 1 Week (Patient to schedule appointment, ensure office is aware this is an appointment following a hospital stay.) Oral Goetz MD [STAFF PHYSICIAN] - 1 Week (Patient to schedule appointment, ensure office is aware this is an appointment following a hospital stay.) Alex Ortega MD [Primary Care Provider] - 1-2 days (Patient to schedule appointment, ensure office is aware this is an appointment following a hospital stay.) Patient Instructions/Handouts: A-fib (Atrial Fibrillation) (DC) Activity/Diet/Wound Care/Special Instructions: Activity: As tolerated. Take breaks as needed. Diet: Heart healthy and carb consistent diet. Avoid salts, or foods with hidden salts such as canned or boxed foods and frozen dinners. Extra salt makes your heart work harder and traps the fluid in your body for longer. Special Instructions: Take all of your medications as directed and remember to keep all of your doctor's appointments and follow-up as needed. Thank you for allowing us to participate in your care, it was truly a pleasure having you for our patient!!! Discharge Disposition: HOME SELF-CARE
[2023-09-25] MEDS ORDERED: METOPROLOL TARTRATE 50 MG TAB PO SCH (21:00)
== END 2023-09-25 17:07 | disposition home or self-care (01) | DRG 309 ==
LOC: EC 12:39 → 3SCARD 14:38
PROVIDERS: ADMIT Internal Medicine; ATTEND Internal Medicine
DX: I48.0 Paroxysmal atrial fibrillation (principal); C77.9 Secondary and unspecified malignant neoplasm of lymph node, unspecified; K52.1 Toxic gastroenteritis and colitis; Z79.01 Long term (current) use of anticoagulants; E78.5 Hyperlipidemia, unspecified; I25.10 Atherosclerotic heart disease of native coronary artery without angina pectoris; F32.A Depression, unspecified; T45.1X5A Adverse effect of antineoplastic and immunosuppressive drugs, initial encounter; I10 Essential (primary) hypertension; F41.9 Anxiety disorder, unspecified; Z79.899 Other long term (current) drug therapy; Z82.49 Family history of ischemic heart disease and other diseases of the circulatory system; Z85.3 Personal history of malignant neoplasm of breast; Z90.13 Acquired absence of bilateral breasts and nipples; Z95.1 Presence of aortocoronary bypass graft; Z90.710 Acquired absence of both cervix and uterus; Z90.49 Acquired absence of other specified parts of digestive tract; X58.XXXA Exposure to other specified factors, initial encounter; Z88.5 Allergy status to narcotic agent; Z86.14 Personal history of Methicillin resistant Staphylococcus aureus infection
CPT/HCPCS: 36415; 71046; 80048; 80053; 80162; 83735; 84484; 85025; 85610; 85730; 93005; 93308; 96365; 96366; 96375; 99291

== ENCOUNTER 2023-10-23 11:15 | Inpatient (IN) | payer MEDICARE, BC ==
[2023-10-23] MEDS ORDERED: FUROSEMIDE 10 MG/ML 4 ML VIAL IV STA (12:29)
--- NOTE | 2023-10-23 12:37 | ED ---
General Adult HPI - General Chief complaint: Shortness of Breath Stated complaint: SOB Time Seen by Provider: 10/23/23 11:25 Source: patient, RN notes reviewed, old records reviewed Mode of arrival: wheelchair Limitations: no limitations - History of Present Illness Initial comments: This is a 78-year-old female who states that she is here for shortness of breathAnd it was sent over to us by [facility]. Patient states she was recently diagnosed with pneumonia 2 weeks ago she is finished antibiotics but her difficulty breathing seems to be getting worse and she continues to cough and cough up sputum. Patient states she has noticed a little swelling in her legs as well. Patient denies any chest pain or palpitations. Patient denies any abdominal pain patient has nausea vomiting diarrhea. Patient has a headache patient has numbness weakness - Related Data Home Medications Medication Instructions Recorded Confirmed Apixaban [Eliquis] 5 mg PO BID 03/05/20 09/24/23 HYDROcodone/APAP 10-325MG [[place] 1 tab PO TID 03/05/20 09/24/23 10-325] Pramipexole Di-HCl [Mirapex] 0.5 mg PO BID 03/05/20 09/24/23 Cyclobenzaprine [Flexeril] 10 mg PO TID PRN 10/02/22 09/24/23 Albuterol Sulfate [Ventolin HFA] 2 puff INHALATION RT-QID PRN 09/24/23 09/24/23 Herceptin Hylecta 1 dose IVPB Q21D 09/24/23 09/24/23 Loperamide HCl [Imodium A-D] 2 mg PO DAILY 09/24/23 09/24/23 Ondansetron [Zofran] 4 mg PO Q4H PRN 09/24/23 09/24/23 PACLitaxeL [Taxol] 1 dose IVPB FR 09/24/23 09/24/23 Umeclidinium Brm/Vilanterol Tr 1 puff INHALATION RT-DAILY 09/24/23 09/24/23 [Anoro Ellipta 62.5-25 Mcg INH] Previous Rx's Medication Instructions Recorded Metoprolol Tartrate [Lopressor] 50 mg PO BID 90 Days #180 tab 09/25/23 Allergies Allergy/AdvReac Type Severity Reaction Status Date / Time morphine Allergy Anaphylaxis Verified 04/05/24 11:22 Review of Systems ROS Statement: Those systems with pertinent positive or pertinent negative responses have been documented in the HPI. ROS Other: All systems not noted in ROS Statement are negative. Past Medical History Past Medical History: Atrial Fibrillation, Cancer, COPD, Hyperlipidemia, Hypertension, Mitral Valve Prolapse (MVP) Additional Past Medical History / Comment(s): lt breast cancer. rt groin blood clot after open heart surgery. periodic limb movement disorder History of Any Multi-Drug Resistant Organisms: MRSA Date of last positivie culture/infection: 2015 MDRO Source:: lt chest area Past Surgical History: Bladder Surgery, Breast Surgery, Cholecystectomy, Coronary Bypass/CABG, Hysterectomy, Joint Replacement Additional Past Surgical History / Comment(s): breast augmentation. amadou mastectomy with saline implants amadou and removed, tissue software controls engineer in place lt breast, (left breast with lymph nodes removed). OPen heart surgery with repair of mitral valve-05/18/19. joint replacment rt & lt knee, cervical laminectomy. amadou cataract surgery, rt eye implant removed and replaced. bladder suspension. left leg surgery Past Anesthesia/Blood Transfusion Reactions: No Reported Reaction Additional Past Anesthesia/Blood Transfusion Reaction / Comment(s): while in surgery leg movement Past Psychological History: Anxiety, Depression Smoking Status: Former smoker Past Alcohol Use History: None Reported Past Drug Use History: Marijuana - Past Family History Sister(s) Additional Family Medical History / Comment(s): 5 sisters with cancer in their 50's Mother Family Medical History: Cancer, Hypertension Father Family Medical History: Myocardial Infarction (NH) Additional Family Medical History / Comment(s): in his 50's from a [place] General Exam - General Exam Comments Initial Comments: GENERAL: Patient is well-developed and well-nourished. Patient is nontoxic and well- hydrated and is in mild distress. ENT: Neck is soft and supple. No significant lymphadenopathy is noted. Oropharynx is clear. Moist mucous membranes. Neck has full range of motion without eliciting any pain. EYES: The sclera were anicteric and conjunctiva were pink and moist. Extraocular movements were intact and pupils were equal round and reactive to light. Eyeli ds were unremarkable. PULMONARY: Unlabored respirations. Good breath sounds bilaterally. Patient has expiratory wheezing with diffuse crackles CARDIOVASCULAR: Patient's heart rate is about 150 beats a minute ABDOMEN: Soft and nontender with normal bowel sounds. SKIN: Skin is clear with no lesions or rashes and otherwise unremarkable. NEUROLOGIC: Patient is alert and oriented x3. Cranial nerves II through XII are grossly intact. Motor and sensory are also intact. Normal speech, volume and content. Symmetrical smile. MUSCULOSKELETAL: Normal extremities with adequate strength and full range of motion. No lower extremity swelling or edema. No calf tenderness. LYMPHATICS: No significant lymphadenopathy is noted PSYCHIATRIC: Normal psychiatric evaluation. Limitations: no limitations Course Vital Signs 10/23/23 10/23/23 10/23/23 11:18 12:05 12:06 Temperature 98.0 F Pulse Rate 148 H 140 H 141 H Pulse Rate [ Sample Shoe Inspector And Reworker ] Respiratory 20 20 20 Rate Blood Pressure 145/81 109/69 109/69 O2 Sat by Pulse 98 100 100 Oximetry 10/23/23 10/23/23 10/23/23 12:09 12:15 12:30 Temperature Pulse Rate 141 H 146 H Pulse Rate [ 142 H Sample Shoe Inspector And Reworker ] Respiratory 21 18 Rate Blood Pressure 109/69 108/78 O2 Sat by Pulse 100 Oximetry 10/23/23 10/23/23 10/23/23 12:45 13:00 13:15 Temperature Pulse Rate 141 H 141 H 92 Pulse Rate [ Sample Shoe Inspector And Reworker ] Respiratory 15 18 17 Rate Blood Pressure 109/82 115/66 121/77 O2 Sat by Pulse 99 98 97 Oximetry 10/23/23 10/23/23 10/23/23 13:30 13:45 14:00 Temperature Pulse Rate 147 H 146 H 142 H Pulse Rate [ Sample Shoe Inspector And Reworker ] Respiratory 20 18 18 Rate Blood Pressure 131/70 109/86 131/83 O2 Sat by Pulse 99 99 98 Oximetry 10/23/23 10/23/23 10/23/23 14:15 14:30 14:35 Temperature Pulse Rate 144 H 144 H 97 Pulse Rate [ Sample Shoe Inspector And Reworker ] Respiratory 25 H 16 Rate Blood Pressure 129/83 129/83 O2 Sat by Pulse 96 98 Oximetry 10/23/23 10/23/23 10/23/23 14:45 15:00 15:15 Temperature Pulse Rate 146 H 149 H 147 H Pulse Rate [ Sample Shoe Inspector And Reworker ] Respiratory 17 18 17 Rate Blood Pressure 103/73 118/80 126/77 O2 Sat by Pulse 97 98 98 Oximetry Medical Decision Making - Medical Decision Making EKG is interpreted by myself EKG shows atrial flutter at 143 bpm parables 110 QRS is 86 QT interval is 275 QTc is 358. Patient's EKG shows no ST segment elevation or depression. Was pt. sent in by a medical professional or institution (JUANJOSE Nguyễn, DATA CODER OPERATOR, urgent care, hospital, or skilled nursing...) When possible be specific @ -No Did you speak to anyone other than the patient for history (EMS, parent, family, police, friend...)? What history was obtained from this source @ -No Did you review nursing and triage notes (agree or disagree)? Why? @ -I reviewed and agree with nursing and triage notes Were old charts reviewed (outside hosp., previous admission, EMS record, old EKG, old radiological studies, urgent care reports/EKG's, skilled nursing records)? Report findings @ -I reviewed patient's prior labs and prior x-rays I found no acute abnormality on the labs or the x-rays Differential Diagnosis (chest pain, altered mental status, abdominal pain women, abdominal pain men, vaginal bleeding, weakness, fever, dyspnea, syncope, headache, dizziness, GI bleed, back pain, seizure, CVA, palpatations, mental health, musculoskeletal)? @ -Not applicable EKG interpreted by me (3pts min.). @ -No X-rays interpreted by me (1pt min.). @ -Chest x-ray showed no acute abnormality CT interpreted by me (1pt min.). @ -None done U/S interpreted by me (1pt. min.). @ -None done What testing was considered but not performed or refused? (CT, X-rays, U/S, labs)? Why? @ -None What meds were considered but not given or refused? Why? @ -None Did you discuss the management of the patient with other professionals (professionals i.e. JUANJOSE Nguyễn, DATA CODER OPERATOR, lab, RT, psych nurse, social media director, client account assistant, t eacher, community liaison officer, director of casework department)? Give summary @ -I spoke with Dr. Mercedes and he agreed to admit the patient. Was smoking cessation discussed for >3mins.? @ -No Was critical care preformed (if so, how long)? @ -35 minutes Were there social determinants of health that impacted care today? How? ( Homelessness, low income, unemployed, alcoholism, drug addiction, transportation, low edu. Level, literacy, decrease access to med. care, halfway, rehab)? @ -No Was there de-escalation of care discussed even if they declined (Discuss DNR or withdrawal of care, Hospice)? DNR status @ -No What co-morbidities impacted this encounter? (DM, HTN, Smoking, COPD, CAD, Cancer, CVA, ARF, Chemo, Hep., AIDS, mental health diagnosis, sleep apnea, morbid obesity)? @ -None Was patient admitted / discharged? Hospital course, mention meds given and route, prescriptions, significant lab abnormalities, going to OR and other pertinent info. @ -Patient was in A-fib with rapid ventricular response. I started the patient on Cardizem after Cardizem bolus. Patient is already on Eliquis. I spoke with Dr. Mercedes he agreed to admit the patient admit the patient wrote admitting orders Undiagnosed new problem with uncertain prognosis? @ -No Drug Therapy requiring intensive monitoring for toxicity (Heparin, Nitro, I nsulin, Cardizem)? @ -No Were any procedures done? @ -No Diagnosis/symptom? @ -A-fib with rapid ventricular response Acute, or Chronic, or Acute on Chronic? @ -Acute Uncomplicated (without systemic symptoms) or Complicated (systemic symptoms)? @ -Complicated Side effects of treatment? @ -No Exacerbation, Progression, or Severe Exacerbation? @ -No Poses a threat to life or bodily function? How? (Chest pain, [place], NH, pneumonia, PE, COPD, DKA, ARF, appy, cholecystitis, CVA, Diverticulitis, Homicidal, Suicidal, threat to staff... and all critical care pts) @ -Yes this can lead to poor perfusion and end organ dysfunction - Lab Data Result diagrams: 10/23/23 12:05 10/23/23 12:05 Lab Results 10/23/23 10/23/23 10/23/23 Range/Units 12:05 12:05 12:05 WBC 6.4 (3.8-10.6) k/uL RBC 3.78 L (3.80-5.40) m/uL Hgb 11.5 (11.4-16.0) gm/dL Hct 35.8 (34.0-46.0) % MCV 94.5 (80.0-100.0) fL MCH 30.3 (25.0-35.0) pg MCHC 32.1 (31.0-37.0) g/dL RDW 16.5 H (11.5-15.5) % Plt Count 195 (150-450) k/uL MPV 9.2 Neutrophils % 83 % Lymphocytes % 13 % Monocytes % 2 % Eosinophils % 1 % Basophils % 0 % Neutrophils # 5.3 (1.3-7.7) k/uL Lymphocytes # 0.8 L (1.0-4.8) k/uL Monocytes # 0.1 (0-1.0) k/uL Eosinophils # 0.1 (0-0.7) k/uL Basophils # 0.0 (0-0.2) k/uL Anisocytosis Slight PT 10.2 (10.0-12.5) sec INR 0.9 (<1.2) APTT 23.0 (22.0-30.0) sec Sodium 134 L (137-145) mmol/L Potassium 4.2 (3.5-5.1) mmol/L Chloride 102 (98-107) mmol/L Carbon Dioxide 26 (22-30) mmol/L Anion Gap 6 mmol/L BUN 14 (7-17) mg/dL Creatinine 0.65 (0.52-1.04) mg/dL Est GFR (CKD-EPI)AfAm >90 (>60 ml/min/1.73 sqM) Est GFR (CKD-EPI)NonAf 86 (>60 ml/min/1.73 sqM) Glucose 134 H (74-99) mg/dL Plasma Lactic Acid Bakari (0.7-2.0) mmol/L Calcium 9.4 (8.4-10.2) mg/dL Magnesium 1.6 (1.6-2.3) mg/dL Total Bilirubin 1.3 (0.2-1.3) mg/dL AST 16 (14-36) U/L ALT 22 (4-34) U/L Alkaline Phosphatase 120 (38-126) U/L Troponin I (0.000-0.034) ng/mL NT-Pro-B Natriuret Pep 505 pg/mL Total Protein 5.9 L (6.3-8.2) g/dL Albumin 3.5 (3.5-5.0) g/dL Influenza Type A (PCR) (Not Detectd) Influenza Type B (PCR) (Not Detectd) RSV (PCR) (Not Detectd) SARS-CoV-2 (PCR) (Not Detectd) 10/23/23 10/23/23 10/23/23 Range/Units 12:05 12:36 12:47 WBC (3.8-10.6) k/uL RBC (3.80-5.40) m/uL Hgb (11.4-16.0) gm/dL Hct (34.0-46.0) % MCV (80.0-100.0) fL MCH (25.0-35.0) pg MCHC (31.0-37.0) g/dL RDW (11.5-15.5) % Plt Count (150-450) k/uL MPV Neutrophils % % Lymphocytes % % Monocytes % % Eosinophils % % Basophils % % Neutrophils # (1.3-7.7) k/uL Lymphocytes # (1.0-4.8) k/uL Monocytes # (0-1.0) k/uL Eosinophils # (0-0.7) k/uL Basophils # (0-0.2) k/uL Anisocytosis PT (10.0-12.5) sec INR (<1.2) APTT (22.0-30.0) sec Sodium (137-145) mmol/L Potassium (3.5-5.1) mmol/L Chloride (98-107) mmol/L Carbon Dioxide (22-30) mmol/L Anion Gap mmol/L BUN (7-17) mg/dL Creatinine (0.52-1.04) mg/dL Est GFR (CKD-EPI)AfAm (>60 ml/min/1.73 sqM) Est GFR (CKD-EPI)NonAf (>60 ml/min/1.73 sqM) Glucose (74-99) mg/dL Plasma Lactic Acid Bakari 1.4 (0.7-2.0) mmol/L Calcium (8.4-10.2) mg/dL Magnesium (1.6-2.3) mg/dL Total Bilirubin (0.2-1.3) mg/dL AST (14-36) U/L ALT (4-34) U/L Alkaline Phosphatase (38-126) U/L Troponin I <0.012 (0.000-0.034) ng/mL NT-Pro-B Natriuret Pep pg/mL Total Protein (6.3-8.2) g/dL Albumin (3.5-5.0) g/dL Influenza Type A (PCR) Not Detected (Not Detectd) Influenza Type B (PCR) Not Detected (Not Detectd) RSV (PCR) Not Detected (Not Detectd) SARS-CoV-2 (PCR) Not Detected (Not Detectd) Critical Care Time Critical Care Time: Yes Total Critical Care Time: 35 Disposition Clinical Impression: Atrial flutter with rapid ventricular response Disposition: ADMITTED IP TO THIS HOSP Referrals: Alex Ortega MD [Primary Care Provider] - 1-2 days Time of Disposition: 15:39
[2023-10-23] MEDS: DILTIAZEM 125 MG in SODIUM CHLORIDE 0.9% 100 ML IV SCH (12:52)
[2023-10-23] MEDS: methylPREDNISolone SOD SUCCI 125 MG/2 ML VIAL IV STA (12:52)
[2023-10-23 12:55] LABS: Anisocytosis Slight; Basophils % (A) 0 %; Eosinophils # (A) 0.1 k/uL (0-0.7); Eosinophils % (A) 1 %; HCT 35.8 % (34.0-46.0); HGB 11.5 gm/dL (11.4-16.0); Lymphocytes # (A) 0.8 k/uL (1.0-4.8); Lymphocytes % (A) 13 %; MCH 30.3 pg (25.0-35.0); MCHC 32.1 g/dL (31.0-37.0); MCV 94.5 fL (80.0-100.0); Mean Platelet Volume 9.2; Monocytes # (A) 0.1 k/uL (0-1.0); Monocytes % (A) 2 %; Neutrophils # (A) 5.3 k/uL (1.3-7.7); Neutrophils % (A) 83 %; Platelet Count 195 k/uL (150-450); RBC 3.78 m/uL (3.80-5.40); RDW 16.5 % (11.5-15.5); WBC 6.4 k/uL (3.8-10.6)
[2023-10-23] MEDS: DILTIAZEM DRIP BOLUS FROM BAG 1 MG SOLN IV ONE (12:55)
[2023-10-23 12:58] LABS: African American GFR (CKD) >90 (>60 ml/min/1.73 sqM); Anion Gap 6 mmol/L; Blood Urea Nitrogen 14 mg/dL (7-17); Carbon Dioxide 26 mmol/L (22-30); Chloride 102 mmol/L (98-107); Glucose 134 mg/dL (74-99); Non-African American GFR(CKD) 86 (>60 ml/min/1.73 sqM); Potassium 4.2 mmol/L (3.5-5.1); Sodium 134 mmol/L (137-145)
[2023-10-23 12:59] LABS: ALT 22 U/L (4-34); AST 16 U/L (14-36); Albumin 3.5 g/dL (3.5-5.0); Alkaline Phosphatase 120 U/L (38-126); Calcium 9.4 mg/dL (8.4-10.2); Magnesium 1.6 mg/dL (1.6-2.3); Total Bilirubin 1.3 mg/dL (0.2-1.3); Total Protein 5.9 g/dL (6.3-8.2)
[2023-10-23 13:07] LABS: NT-Pro-B-Type Natriuretic Pept 505 pg/mL
[2023-10-23 13:09] LABS: INR 0.9 (<1.2); Prothrombin Time 10.2 sec (10.0-12.5)
--- NOTE | 2023-10-23 13:18 | XR ---
EXAMINATION TYPE: XR chest 2V DATE OF EXAM: 10/23/2023 COMPARISON: 09/24/2023 HISTORY: Short of breath recent pneumonia TECHNIQUE: 2 view chest FINDINGS: Sternotomy wires are in the midline. Heart size is normal. Pulmonary vasculature is normal. There is vague increased opacity over the left lung compared to the right. Findings appear stable th ere is silhouetting of the cardiac apex. IMPRESSION: 1. Lingular infiltrate. Correlate for atelectasis or pneumonia. Follow-up is recommended.
[2023-10-23] MEDS: IPRATROPIUM 0.5 MG/2.5 ML NEBU INHALATION STA (14:14)
[2023-10-23] MEDS: ALBUTEROL NEBULIZED 2.5 MG/3 ML INHALATION STA (14:14)
[2023-10-23] MEDS ORDERED: NITROGLYCERIN SL TABS 0.4 MG TAB SUBLINGUAL PRN (15:40)
[2023-10-23] MEDS ORDERED: ALBUTEROL NEBULIZED 2.5 MG/3 ML INHALATION PRN (17:51)
[2023-10-23] MEDS ORDERED: CYCLOBENZAPRINE 10 MG TAB PO PRN (17:51)
[2023-10-23] MEDS ORDERED: ONDANSETRON 4 MG TAB PO PRN (17:51)
[2023-10-23] MEDS ORDERED: RX INFO: IV CONTRAST WAS GIVEN 1 EACH MISC MISCELLANE PRN (17:52)
--- NOTE | 2023-10-23 17:54 | P.HPIM ---
History of Present Illness H&P Date: 10/23/23 Chief Complaint: palpitations, dyspnea on exertion 78-year-old with medical history of atrial flutter/fibrillation on Eliquis, metastatic breast cancer, mitral valve prolapse status postrepair, hypertension, hyperlipidemia presented for evaluation of dyspnea on exertion as well as palpitations. Patient says that she has had these symptoms escalating for approximately 2 weeks, but worse in the last couple days. She started to feel palpitations as well in the last couple days. She went to see her oncologist today and was sent into the hospital due to elevated heart rate. She denies fevers, chills, nausea, vomiting. She denies chest pain. She denies syncope. In the emergency room, patient was afebrile, 111/52, heart rate 142, 98% on 2 L of nasal cannula. CBC is unremarkable. Basic metabolic panel shows sodium of 134. Liver function tests are unremarkable. BNP was 505. Troponin is less than 0.012. Lactic acid is 1.4. Influenza A, B, RSV, COVID were negative. EKG demonstrates atrial flutter. Chest x-ray shows normal-sized heart, congestion bilaterally. All Systems reviewed and pertinent positives and negatives noted in HPI, all other symptoms are negative Gen: in no apparent distress, resting comfortably in bed Eyes: PERRL, no scleral injection or icterus HENT: normocephalic, atraumatic, good hearing acuity, moist mucous membranes Neck: no tracheal deviation, full range of motion Resp: good air exchange, breathing comfortably with no accessory muscle use, no tactile fremitus, fine crackles in the posterior lung lemus CVS: good distal perfusion x 4, no pitting edema, tachycardic without appreciable murmurs GI: soft, NTTP, ND, no hepatosplenomegaly : no suprapubic tenderness, no CVAT, tran catheter not present MSK: no clubbing, no cyanosis, no noted contractures of extremities Skin: no noted rashes, petechiae; temperature of skin is appropriate Neuro: moving all extremities without signs of weakness, CN II-XII intact Psych: cooperative, euthymic mood, insight and judgment intact Labs and imaging as above Assessment/plan: Paroxysmal atrial flutter with rapid ventricular response Acute on chronic hypoxemic respiratory failure Pulmonary congestion versus lymphangitic metastasis -Admit to inpatient, telemetry -Cardiology was consulted -CT of the chest with IV contrast -Oxygen as needed -Cardizem drip -Continue apixaban -Defer echocardiogram to cardiology, I will not order at this time given recent echocardiogram less than 1 month ago -N.p.o. at midnight for likely cardioversion Metastatic breast cancer Hypertension Hyperlipidemia -Home medications reviewed and reconciled Patient is full code, warrants longer goals of care discussion Past Medical History Past Medical History: Atrial Fibrillation, Cancer, COPD, Hyperlipidemia, Hypertension, Mitral Valve Prolapse (MVP) Additional Past Medical History / Comment(s): lt breast cancer. rt groin blood clot after open heart surgery. periodic limb movement disorder History of Any Multi-Drug Resistant Organisms: MRSA Date of last positivie culture/infection: 2015 MDRO Source:: lt chest area Past Surgical History: Bladder Surgery, Breast Surgery, Cholecystectomy, Coronary Bypass/CABG, Hysterectomy, Joint Replacement Additional Past Surgical History / Comment(s): breast augmentation. amadou mastectomy with saline implants amadou and removed, tissue security installer in place lt b reast, (left breast with lymph nodes removed). OPen heart surgery with repair of mitral valve-05/18/19. joint replacment rt & lt knee, cervical laminectomy. amadou cataract surgery, rt eye implant removed and replaced. bladder suspension. left leg surgery Past Anesthesia/Blood Transfusion Reactions: No Reported Reaction Additional Past Anesthesia/Blood Transfusion Reaction / Comment(s): while in surgery leg movement Past Psychological History: Anxiety, Depression Smoking Status: Former smoker Past Alcohol Use History: None Reported Past Drug Use History: Marijuana - Past Family History Sister(s) Additional Family Medical History / Comment(s): 5 sisters with cancer in their 50's Mother Family Medical History: Cancer, Hypertension Father Family Medical History: Myocardial Infarction ([place]) Additional Family Medical History / Comment(s): in his 50's from a [place] Medications and Allergies Home Medications Medication Instructions Recorded Confirmed Type Apixaban [Eliquis] 5 mg PO BID 03/05/20 10/23/23 History HYDROcodone/APAP 10-325MG [Max 1 tab PO TID 03/05/20 10/23/23 History 10-325] Pramipexole Di-HCl [Mirapex] 0.5 mg PO BID 03/05/20 10/23/23 History Cyclobenzaprine [Flexeril] 10 mg PO TID PRN 10/02/22 10/23/23 History Albuterol Sulfate [Ventolin HFA] 2 puff INHALATION RT-QID PRN 09/24/23 10/23/23 History Herceptin Hylecta 1 dose IVPB Q21D 09/24/23 10/23/23 History Loperamide HCl [Imodium A-D] 2 mg PO DAILY 09/24/23 10/23/23 History Ondansetron [Zofran] 4 mg PO Q4H PRN 09/24/23 10/23/23 History PACLitaxeL [Taxol] 1 dose IVPB TU 09/24/23 10/23/23 History Umeclidinium Brm/Vilanterol Tr 1 puff INHALATION RT-DAILY 09/24/23 10/23/23 History [Anoro Ellipta 62.5-25 Mcg INH] Metoprolol Tartrate [Lopressor] 50 mg PO BID 90 Days #180 tab 09/25/23 10/23/23 Rx Allergies Allergy/AdvReac Type Severity Reaction Status Date / Time morphine Allergy Anaphylaxis Verified 10/23/23 11:22 Physical Exam Osteopathic Statement: *. No significant issues noted on an osteopathic structural exam other than those noted in the History and Physical/Consult. Vitals: Vital Signs Temp Pulse Pulse Resp BP Pulse Ox 10/23/23 16:45 146 H 16 103/68 97 10/23/23 16:30 146 H 14 119/72 99 10/23/23 16:15 142 H 18 123/73 98 10/23/23 16:00 141 H 139/73 10/23/23 15:45 142 H 111/52 10/23/23 15:30 144 H 125/70 10/23/23 15:15 147 H 17 126/77 98 10/23/23 15:00 149 H 18 118/80 98 10/23/23 14:45 146 H 17 103/73 97 10/23/23 14:35 97 10/23/23 14:30 144 H 16 129/83 98 10/23/23 14:15 144 H 25 H 129/83 96 10/23/23 14:00 142 H 18 131/83 98 10/23/23 13:45 146 H 18 109/86 99 10/23/23 13:30 147 H 20 131/70 99 10/23/23 13:15 92 17 121/77 97 10/23/23 13:00 141 H 18 115/66 98 10/23/23 12:45 141 H 15 109/82 99 10/23/23 12:30 146 H 18 108/78 10/23/23 12:15 141 H 21 109/69 100 10/23/23 12:09 142 H 10/23/23 12:06 141 H 20 109/69 100 10/23/23 12:05 140 H 20 109/69 100 10/23/23 11:18 98.0 F 148 H 20 145/81 98 Intake and Output 10/23/23 10/23/23 10/23/23 06:59 14:59 22:59 Intake Total 8.583 8.5 Balance 8.583 8.5 Intake: Intake, IV Titration 8.583 8.5 Amount Diltiazem 125 mg In 8.583 8.5 Sodium Chloride 0.9% 100 ml @ 5 MG/HR 5 mls/hr IV .Q24H [facility] Rx#:[id number] Other: Weight 88.451 kg Results CBC & Chem 7: 10/23/23 12:05 10/23/23 12:05 Labs: Abnormal Lab Results - Last 24 Hours (Table) 10/23/23 10/23/23 Range/Units 12:05 12:05 RBC 3.78 L (3.80-5.40) m/uL RDW 16.5 H (11.5-15.5) % Lymphocytes # 0.8 L (1.0-4.8) k/uL Sodium 134 L (137-145) mmol/L Glucose 134 H (74-99) mg/dL Total Protein 5.9 L (6.3-8.2) g/dL
[2023-10-23] MEDS: HYDROcodone/APAP 10-325MG 1 EACH TAB PO SCH (21:39)
[2023-10-23] MEDS: METOPROLOL TARTRATE 50 MG TAB PO SCH (21:39)
[2023-10-23] MEDS: PRAMIPEXOLE 0.5 MG TAB PO SCH (21:42)
[2023-10-23] MEDS: APIXABAN 5 MG TAB PO SCH (21:42)
[2023-10-23] MEDS: IPRATROPIUM 0.5 MG/2.5 ML NEBU INHALATION SCH (22:32)
[2023-10-24] MEDS ORDERED: ASPIRIN 325 MG TAB PO SCH (09:00)
[2023-10-24] MEDS: FORMOTEROL FUMARATE 20 MCG/2 ML NEBU INHALATION SCH (09:10)
[2023-10-24] MEDS: LOPERAMIDE 2 MG CAP PO SCH (09:25)
[2023-10-24] MEDS: METOPROLOL TARTRATE 25 MG TAB PO SCH (09:26)
--- NOTE | 2023-10-24 09:57 | P.CRDCN ---
History of Present Illness History of present illness: HISTORY OF PRESENT ILLNESS: This is a 78-year-old female with a past medical history significant for paroxysmal atrial fibrillation, hypertension, hyperlipidemia, and breast cancer with metastasis to the lymph nodes currently undergoing chemotherapy. Patient follows in the office with Dr. Palencia. We have been asked to see the patient in consultation for A-fib with RVR. Patient examined at the bedside. Patient states she was sent over from the [facility] secondary to tachycardia. Patient was found to be in A-fib with RVR. She was placed on IV Cardizem. Cardizem is currently infusing at 7.5 mg an hour. She remains in atrial fibrillation with a heart rate around 130. She denies chest pain or pressure. She denies shortness of breath. DIAGNOSTICS: - EKG reveals A-fib with RVR. - Chest xray lingular infiltrate. Correlate for atelectasis or pneumonia. - Laboratory data: WBC 6.4. Hemoglobin 11.5. Platelet count 195. Sodium 134. Potassium 4.2. BUN 14. Creatinine 0.65. Magnesium 1.6. Troponin negative x 3. proBNP 505. - Current home cardiac medications include Eliquis 5 mg twice a day, metoprolol titrate 50 mg twice a day. - Most recent echocardiogram obtained in September 2023 reveals ejection fraction 55 to 60%. -Patient underwent Lexiscan stress test in July 2022 revealing small anterior scar REVIEW OF SYSTEMS: At the time of my exam: CONSTITUTIONAL: Denies fever or chills. HEENT: Denies blurred vision, vision changes, or eye pain. Denies hemoptysis CARDIOVASCULAR: Denies chest pain. Denies orthopnea. Denies PND. Denies palpitations RESPIRATORY: Denies shortness of breath. GASTROINTESTINAL: Denies abdominal pain. Denies nausea or vomiting. HEMATOLOGIC: Denies bleeding disorders. GENITOURINARY: Denies any blood in urine. SKIN: Denies pruitis. Denies rash. PHYSICAL EXAM: VITAL SIGNS: Reviewed. GENERAL: Well-developed in no acute distress. HEENT: Head is normocephalic. Pupils are equal, round. Sclerae anicteric. Mucous membranes of the mouth are moist. Neck supple. No JVD or thyromegaly LUNGS: Respirations even and unlabored. Lungs essentially clear to auscultation bilaterally. HEART: Tachycardic. Irregular rate and rhythm. S1 and S2 heard. ABDOMEN: Soft. Nondistended. Nontender. EXTREMITIES: Normal range of motion. No clubbing or cyanosis. Peripheral pulses intact. No lower extremity edema NEUROLOGIC: Awake and alert. Oriented x 3. ASSESSMENT: Paroxysmal atrial fibrillation with RVR Breast cancer with metastasis to lymph nodes, currently undergoing chemotherapy History of double mastectomy History of hypertension History of hyperlipidemia Valvular heart disease History of mitral valve repair, details unknown Former nicotine dependence PLAN: No need to repeat echocardiogram as this was performed last month Continue IV Cardizem. Increase to 10 mg an hour Increase metoprolol to 75 mg twice a day Continue anticoagulation with Eliquis Continue telemetry monitoring Further recommendations pending patient course Nurse practitioner note has been reviewed by physician. Signing provider agrees with the documented findings, assessment, and plan of care documented by LABORATORY COURIER as a scribe. Past Medical History Past Medical History: Atrial Fibrillation, Cancer, COPD, Hyperlipidemia, Hypertension, Mitral Valve Prolapse (MVP) Additional Past Medical History / Comment(s): lt breast cancer. rt groin blood clot after open heart surgery. periodic limb movement disorder History of Any Multi-Drug Resistant Organisms: MRSA Date of last positivie culture/infection: 2015 MDRO Source:: lt chest area Past Surgical History: Bladder Surgery, Breast Surgery, Cholecystectomy, Coronary Bypass/CABG, Hysterectomy, Joint Replacement Additional Past Surgical History / Comment(s): breast augmentation. amadou mastectomy with saline implants amadou and removed, tissue holder pile driving in place lt breast, (left breast with lymph nodes removed). OPen heart surgery with repair of mitral valve-05/18/19. joint replacment rt & lt knee, cervical laminectomy. amadou cataract surgery, rt eye implant removed and replaced. bladder suspension. left leg surgery Past Anesthesia/Blood Transfusion Reactions: No Reported Reaction Additional Past Anesthesia/Blood Transfusion Reaction / Comment(s): while in surgery leg movement Past Psychological History: Anxiety, Depression Smoking Status: Former smoker Past Alcohol Use History: None Reported Additional Past Alcohol Use History / Comment(s): smoker off and on since age 17, couple times a week smokes after dinner, quit in 2019 Past Drug Use History: Marijuana Additional Drug Use History / Comment(s): medical marijuana - Past Family History Sister(s) Additional Family Medical History / Comment(s): 5 sisters with cancer in their 50's Mother Family Medical History: Cancer, Hypertension Father Family Medical History: Myocardial Infarction ([place]) Additional Family Medical History / Comment(s): in his 50's from a [place] Medications and Allergies Home Medications Medication Instructions Recorded Confirmed Type Apixaban [Eliquis] 5 mg PO BID 03/05/20 10/23/23 History HYDROcodone/APAP 10-325MG [[place] 1 tab PO TID 03/05/20 10/23/23 History 10-325] Pramipexole Di-HCl [Mirapex] 0.5 mg PO BID 03/05/20 10/23/23 History Cyclobenzaprine [Flexeril] 10 mg PO TID PRN 10/02/22 10/23/23 History Albuterol Sulfate [Ventolin HFA] 2 puff INHALATION RT-QID PRN 09/24/23 10/23/23 History Herceptin Hylecta 1 dose IVPB Q21D 09/24/23 10/23/23 History Loperamide HCl [Imodium A-D] 2 mg PO DAILY 09/24/23 10/23/23 History Ondansetron [Zofran] 4 mg PO Q4H PRN 09/24/23 10/23/23 History PACLitaxeL [Taxol] 1 dose IVPB TU 09/24/23 10/23/23 History Umeclidinium Brm/Vilanterol Tr 1 puff INHALATION RT-DAILY 09/24/23 10/23/23 History [Anoro Ellipta 62.5-25 Mcg INH] Metoprolol Tartrate [Lopressor] 50 mg PO BID 90 Days #180 tab 09/25/23 10/23/23 Rx Allergies Allergy/AdvReac Type Severity Reaction Status Date / Time morphine Allergy Anaphylaxis Verified 10/23/23 11:22 Physical Exam Vitals: Vital Signs Temp Pulse Pulse Pulse Resp BP BP 10/24/23 09:35 138 H 10/24/23 09:23 144 H 10/24/23 09:22 144 H 10/24/23 09:15 145 H 10/24/23 09:14 10/24/23 08:00 98.2 F 134 H 17 127/82 10/24/23 04:00 97.4 F L 89 16 120/68 10/23/23 23:37 97.6 F 131 H 16 109/61 10/23/23 20:00 98.0 F 144 H 16 107/68 10/23/23 18:00 146 H 16 122/76 10/23/23 16:45 146 H 16 103/68 10/23/23 16:30 146 H 14 119/72 10/23/23 16:15 142 H 18 123/73 10/23/23 16:00 141 H 139/73 10/23/23 15:45 142 H 111/52 10/23/23 15:30 144 H 125/70 10/23/23 15:15 147 H 17 126/77 10/23/23 15:00 149 H 18 118/80 10/23/23 14:45 146 H 17 103/73 10/23/23 14:35 97 10/23/23 14:30 144 H 16 129/83 10/23/23 14:15 144 H 25 H 129/83 10/23/23 14:00 142 H 18 131/83 10/23/23 13:45 146 H 18 109/86 10/23/23 13:30 147 H 20 131/70 10/23/23 13:15 92 17 121/77 10/23/23 13:00 141 H 18 115/66 10/23/23 12:45 141 H 15 109/82 10/23/23 12:30 146 H 18 108/78 10/23/23 12:15 141 H 21 109/69 10/23/23 12:09 142 H 10/23/23 12:06 141 H 20 109/69 10/23/23 12:05 140 H 20 109/69 10/23/23 11:18 98.0 F 148 H 20 145/81 Pulse Ox 10/24/23 09:35 10/24/23 09:23 10/24/23 09:22 10/24/23 09:15 10/24/23 09:14 94 L 10/24/23 08:00 96 10/24/23 04:00 96 10/23/23 23:37 97 10/23/23 20:00 96 10/23/23 18:00 96 10/23/23 16:45 97 10/23/23 16:30 99 10/23/23 16:15 98 10/23/23 16:00 10/23/23 15:45 10/23/23 15:30 10/23/23 15:15 98 10/23/23 15:00 98 10/23/23 14:45 97 10/23/23 14:35 10/23/23 14:30 98 10/23/23 14:15 96 10/23/23 14:00 98 10/23/23 13:45 99 10/23/23 13:30 99 10/23/23 13:15 97 10/23/23 13:00 98 10/23/23 12:45 99 10/23/23 12:30 10/23/23 12:15 100 10/23/23 12:09 10/23/23 12:06 100 10/23/23 12:05 100 10/23/23 11:18 98 Intake and Output 10/23/23 10/24/23 10/24/23 22:59 06:59 14:59 Intake Total 8.5 232.917 Output Total 400 Balance 8.5 232.917 -400 Intake: Intake, IV Titration 8.5 107.917 Amount Diltiazem 125 mg In 8.5 107.917 Sodium Chloride 0.9% 100 ml @ 5 MG/HR 5 mls/hr IV .Q24H [facility] Rx#:[id number] Oral 125 Output: Urine 400 Other: # Bowel Movements 1 Weight 88.451 kg Results 10/23/23 12:05 10/23/23 12:05 Cardiac Enzymes 10/23/23 10/23/23 10/23/23 Range/Units 12:05 12:05 16:11 AST 16 (14-36) U/L Troponin I <0.012 <0.012 (0.000-0.034) ng/mL 10/23/23 Range/Units 21:03 AST (14-36) U/L Troponin I <0.012 (0.000-0.034) ng/mL Coagulation 10/23/23 Range/Units 12:05 PT 10.2 (10.0-12.5) sec APTT 23.0 (22.0-30.0) sec CBC 10/23/23 Range/Units 12:05 WBC 6.4 (3.8-10.6) k/uL RBC 3.78 L (3.80-5.40) m/uL Hgb 11.5 (11.4-16.0) gm/dL Hct 35.8 (34.0-46.0) % Plt Count 195 (150-450) k/uL Comprehensive Metabolic Panel 10/23/23 Range/Units 12:05 Sodium 134 L (137-145) mmol/L Potassium 4.2 (3.5-5.1) mmol/L Chloride 102 (98-107) mmol/L Carbon Dioxide 26 (22-30) mmol/L BUN 14 (7-17) mg/dL Creatinine 0.65 (0.52-1.04) mg/dL Glucose 134 H (74-99) mg/dL Calcium 9.4 (8.4-10.2) mg/dL AST 16 (14-36) U/L ALT 22 (4-34) U/L Alkaline Phosphatase 120 (38-126) U/L Total Protein 5.9 L (6.3-8.2) g/dL Albumin 3.5 (3.5-5.0) g/dL Current Medications Generic Name Dose Route Start Last Admin Trade Name Freq PRN Reason Stop Dose Admin Hydrocodone Bitart/Acetaminophen 1 each 10/23/23 22:00 10/24/23 09:25 Hydrocodone/Apap 10-325mg 1 Each Tab PO 1 each TID VIVIENNE Administration Albuterol Sulfate 2.5 mg 10/23/23 17:51 Albuterol Nebulized 2.5 Mg/3 Ml INHALATION RT-QID PRN Shortness Of Breath Apixaban 5 mg 10/23/23 21:00 10/24/23 09:25 Apixaban 5 Mg Tab PO 5 mg BID VIVIENNE Administration Protocol Cyclobenzaprine HCl 10 mg 10/23/23 17:51 Cyclobenzaprine 10 Mg Tab PO TID PRN Muscle Spasm Formoterol Fumarate 20 mcg 10/24/23 08:00 10/24/23 09:10 Formoterol Fumarate 20 Mcg/2 Ml Nebu INHALATION 20 mcg RT-BID VIVIENNE Administration Diltiazem HCl 125 mg/ Sodium 125 mls @ 5 mls/hr 10/23/23 12:45 10/24/23 05:42 Chloride IV Infused .Q24H VIVIENNE Infusion 5 MG/HR Ipratropium [place] 0.5 mg 10/23/23 20:00 10/24/23 09:10 Ipratropium 0.5 Mg/2.5 Ml Nebu INHALATION 0.5 mg RT-QID VIVIENNE Administration Loperamide HCl 2 mg 10/24/23 09:00 10/24/23 09:25 Loperamide 2 Mg Cap PO Not Given DAILY [facility] Metoprolol Tartrate 75 mg 10/24/23 09:00 10/24/23 09:26 Metoprolol Tartrate 25 Mg Tab PO 75 mg BID VIVIENNE Administration Miscellaneous Information 1 each 10/23/23 17:52 Rx Info: Iv Contrast Was Given 1 Each Misc MISCELLANE 10/25/23 17:52 DAILY PRN Per Protocol Nitroglycerin 0.4 mg 10/23/23 15:40 Nitroglycerin Sl Tabs 0.4 Mg Tab SUBLINGUAL Q5M PRN Chest Pain Ondansetron HCl 4 mg 10/23/23 17:51 Ondansetron 4 Mg Tab PO Q4H PRN Nausea Pramipexole Dihydrochloride 0.5 mg 10/23/23 21:00 10/24/23 09:27 Pramipexole 0.5 Mg Tab PO 0.5 mg BID VIVIENNE Administration Intake and Output 10/23/23 10/24/23 10/24/23 22:59 06:59 14:59 Intake Total 8.5 232.917 Output Total 400 Balance 8.5 232.917 -400 Intake: Intake, IV Titration 8.5 107.917 Amount Diltiazem 125 mg In 8.5 107.917 Sodium Chloride 0.9% 100 ml @ 5 MG/HR 5 mls/hr IV .Q24H [facility] Rx#:[id number] Oral 125 Output: Urine 400 Other: # Bowel Movements 1 Weight 88.451 kg 10/23/23 12:05 10/23/23 12:05
[2023-10-24 10:57] LABS: Anisocytosis Slight; Basophils % (A) 0 %; Eosinophils % (A) 0 %; HCT 34.7 % (34.0-46.0); HGB 10.9 gm/dL (11.4-16.0); Lymphocytes # (A) 0.5 k/uL (1.0-4.8); Lymphocytes % (A) 8 %; MCH 30.2 pg (25.0-35.0); MCHC 31.4 g/dL (31.0-37.0); MCV 95.9 fL (80.0-100.0); Mean Platelet Volume 9.4; Monocytes # (A) 0.2 k/uL (0-1.0); Monocytes % (A) 2 %; Neutrophils # (A) 5.8 k/uL (1.3-7.7); Neutrophils % (A) 90 %; Platelet Count 206 k/uL (150-450); RBC 3.62 m/uL (3.80-5.40); RDW 16.7 % (11.5-15.5); WBC 6.5 k/uL (3.8-10.6)
[2023-10-24 11:34] LABS: African American GFR (CKD) >90 (>60 ml/min/1.73 sqM); Anion Gap 8 mmol/L; Blood Urea Nitrogen 17 mg/dL (7-17); Calcium 9.4 mg/dL (8.4-10.2); Carbon Dioxide 24 mmol/L (22-30); Chloride 102 mmol/L (98-107); Glucose 228 mg/dL (74-99); Magnesium 1.7 mg/dL (1.6-2.3); Non-African American GFR(CKD) 87 (>60 ml/min/1.73 sqM); Potassium 4.6 mmol/L (3.5-5.1); Sodium 134 mmol/L (137-145)
--- NOTE | 2023-10-24 15:51 | P.PN ---
Subjective Progress Note Date: 10/24/23 No new complaints. Pt is hungry, would like to be fed as soon as possible. Back in A Flutter after having briefly converted to NSR overnight. Gen: in no apparent distress, resting comfortably in bed Eyes: PERRL, no scleral injection or icterus HENT: normocephalic, atraumatic, good hearing acuity, moist mucous membranes Neck: no tracheal deviation, full range of motion Resp: good air exchange, breathing comfortably with no accessory muscle use, no tactile fremitus, fine crackles in the posterior lung lemus CVS: good distal perfusion x 4, no pitting edema, tachycardic without appreciable murmurs GI: soft, NTTP, ND, no hepatosplenomegaly : no suprapubic tenderness, no CVAT, tran catheter not present MSK: no clubbing, no cyanosis, no noted contractures of extremities Skin: no noted rashes, petechiae; temperature of skin is appropriate Neuro: moving all extremities without signs of weakness, CN II-XII intact Psych: cooperative, euthymic mood, insight and judgment intact Hospital Course: 78-year-old with medical history of atrial flutter/fibrillation on Eliquis, metastatic breast cancer, mitral valve prolapse status postrepair, hypertension, hyperlipidemia presented for evaluation of dyspnea on exertion as well as palpitations. In the emergency room, patient was afebrile, 111/52, heart rate 142, 98% on 2 L of nasal cannula. CBC is unremarkable. Basic metabolic panel shows sodium of 134. Liver function tests are unremarkable. BNP was 505. Troponin is less than 0.012. Lactic acid is 1.4. Influenza A, B, RSV, COVID were negative. EKG demonstrates atrial flutter. Chest x-ray shows normal-sized heart, congestion bilaterally. Assessment/plan: Paroxysmal atrial flutter with rapid ventricular response Acute on chronic hypoxemic respiratory failure Pulmonary congestion versus lymphangitic metastasis -Admit to inpatient, telemetry -Cardiology was consulted -CT of the chest with IV contrast, read is pending -Oxygen as needed -Cardizem drip -I resumed pts metoprolol, cardiology increased it to 75mg BID -Continue apixaban Metastatic breast cancer Hypertension Hyperlipidemia -Home medications reviewed and reconciled Patient is full code, warrants longer goals of care discussion Objective - Vital Signs Vital signs: Vital Signs Temp 98.2 F 10/24/23 08:00 Pulse 86 10/24/23 12:45 Resp 17 10/24/23 08:00 BP 127/82 10/24/23 08:00 Pulse Ox 94 L 10/24/23 09:14 FiO2 Intake & Output 10/23/23 10/24/23 10/24/23 18:59 06:59 18:59 Intake Total 17.083 232.917 120 Output Total 400 Balance 17.083 232.917 -280 Weight 88.451 kg Intake: Intake, IV Titration 17.083 107.917 Amount Diltiazem 125 mg In 17.3 107.917 Sodium Chloride 0.9% 100 ml @ 5 MG/HR 5 mls/hr IV .Q24H [facility] Rx#:[id number] Oral 125 120 Output: Urine 400 Other: # Voids 0 # Bowel Movements 0 - Labs CBC & Chem 7: 10/24/23 10:04 10/24/23 10:04 Labs: Abnormal Lab Results - Last 24 Hours (Table) 10/24/23 10/24/23 Range/Units 10:04 10:04 RBC 3.62 L (3.80-5.40) m/uL Hgb 10.9 L (11.4-16.0) gm/dL RDW 16.7 H (11.5-15.5) % Lymphocytes # 0.5 L (1.0-4.8) k/uL Sodium 134 L (137-145) mmol/L Glucose 228 H (74-99) mg/dL
[2023-10-24] MEDS: DILTIAZEM 125 MG in SODIUM CHLORIDE 0.9% 100 ML IV SCH (19:21)
[2023-10-24 22:57] LABS: Chol/HDL Ratio 3.84 Ratio; LDL Cholesterol,Calculated 86.5 mg/dL (0.0-131.0)
[2023-10-25 06:54] LABS: African American GFR (CKD) >90 (>60 ml/min/1.73 sqM); Anion Gap 5 mmol/L; Blood Urea Nitrogen 17 mg/dL (7-17); Calcium 9.2 mg/dL (8.4-10.2); Carbon Dioxide 28 mmol/L (22-30); Chloride 102 mmol/L (98-107); Glucose 117 mg/dL (74-99); Magnesium 1.7 mg/dL (1.6-2.3); Non-African American GFR(CKD) 88 (>60 ml/min/1.73 sqM); Potassium 4.1 mmol/L (3.5-5.1); Sodium 135 mmol/L (137-145)
[2023-10-25 08:29] VITALS: RESP 17
[2023-10-25] MEDS: METOPROLOL TARTRATE 50 MG TAB PO SCH (09:00)
--- NOTE | 2023-10-25 09:18 | CT ---
EXAMINATION TYPE: CT chest w con DATE OF EXAM: 10/23/2023 COMPARISON: 05/14/2023 HISTORY: pulm congestion vs lymphangitic mets Automated exposure control for dose reduction was used. CONTRAST: CT scan of the chest is performed with IV Contrast, patient injected with 100ml mL of Isovue 300. FINDINGS: LUNGS: There is no evidence of basilar atelectasis with trace effusions. Previously noted tree in bud appearance has resolved. I do not see CT evidence to suggest lymphangitic carcinomatosis. Small nodu lar density left upper lobe anteriorly measuring 5 mm image 23. Mild upper lobe paraseptal emphysema. No focal consolidation appreciated. MEDIASTINUM: There are no greater than 1 cm hilar or mediastinal lymph nodes. No pericardial effusi on is seen. Thoracic aorta is of normal caliber. The heart is not enlarged. UPPER ABDOMEN: No significant abnormality appreciated. OTHER: Bilateral saline implants are in place. Bilateral axillary lymph nodes appear unchanged relat frandy to the prior study with the largest right-sided lymph node measuring 1.3 cm in short axis. Subcen timeter short axis lymph nodes seen in the left axilla. Nonspecific lower pole thyroid nodules. IMPRESSION: 1. No evidence for lymphangitic carcinomatosis or focal consolidation. Mild basilar atelectasis and t race effusions. 2. Persistent axillary adenopathy without significant change.
--- NOTE | 2023-10-25 09:36 | P.PN ---
Subjective HISTORY OF PRESENT ILLNESS: This is a 78-year-old female with a past medical history significant for paroxysmal atrial fibrillation, hypertension, hyperlipidemia, and breast cancer with metastasis to the lymph nodes currently undergoing chemotherapy. Patient follows in the office with Dr. Palencia. We have been asked to see the patient in consultation for A-fib with RVR. Patient examined at the bedside. Patient states she was sent over from the [facility] secondary to tachycardia. Patient was found to be in A-fib with RVR. She was placed on IV Cardizem. Cardizem is currently infusing at 7.5 mg an hour. She remains in atrial fibrill ation with a heart rate around 130. She denies chest pain or pressure. She denies shortness of breath. DIAGNOSTICS: - EKG reveals A-fib with RVR. - Chest xray lingular infiltrate. Correlate for atelectasis or pneumonia. - Laboratory data: WBC 6.4. Hemoglobin 11.5. Platelet count 195. Sodium 134. Potassium 4.2. BUN 14. Creatinine 0.65. Magnesium 1.6. Troponin negative x 3. proBNP 505. - Current home cardiac medications include Eliquis 5 mg twice a day, metoprolol titrate 50 mg twice a day. - Most recent echocardiogram obtained in September 2023 reveals ejection fraction 55 to 60%. -Patient underwent Lexiscan stress test in July 2022 revealing small anterior scar 10/25/2023 Patient examined this morning at the bedside. Patient currently denies chest pain or pressure. She denies shortness of breath. She remains in atrial fibrillation [place] heart [place] [address]. She remains on IV Cardizem at 10 mg an hour. Blood pressure is stable. PHYSICAL EXAM: VITAL SIGNS: Reviewed. GENERAL: Well-developed in no acute distress. HEENT: Head is normocephalic. Pupils are equal, round. Sclerae anicteric. Mucous membranes of the mouth are moist. Neck supple. No JVD or thyromegaly LUNGS: Respirations even and unlabored. Lungs essentially clear to auscultation bilaterally. HEART: Irregular rate and rhythm. S1 and S2 heard. ABDOMEN: Soft. Nondistended. Nontender. EXTREMITIES: Normal range of motion. No clubbing or cyanosis. Peripheral pulses intact. No lower extremity edema NEUROLOGIC: Awake and alert. Oriented x 3. ASSESSMENT: Paroxysmal atrial fibrillation with RVR Breast cancer with metastasis to lymph nodes, currently undergoing chemotherapy History of double mastectomy History of hypertension History of hyperlipidemia Valvular heart disease History of mitral valve repair, details unknown Former nicotine dependence PLAN: No need to repeat echocardiogram as this was performed last month Increase metoprolol to 100 mg twice a day Wean off Cardizem drip as heart rate will tolerate Continue anticoagulation with Eliquis Continue telemetry monitoring If patient's heart rates remain stable off IV Cardizem, she may be discharged home today from a cardiac standpoint Further recommendations pending patient course Nurse practitioner note has been reviewed by physician. Signing provider agrees with the documented findings, assessment, and plan of care documented by SENIOR MANAGEMENT CONSULTANT as a scribe. Objective - Vital Signs Vital signs: Vital Signs Temp 97.6 F 10/25/23 08:00 Pulse 80 10/25/23 09:31 Resp 17 10/25/23 08:00 BP 113/58 10/25/23 08:00 Pulse Ox 96 10/25/23 09:01 FiO2 Intake & Output 10/24/23 10/25/23 10/25/23 18:59 06:59 18:59 Intake Total 243 335.167 0 Output Total 400 Balance -157 335.167 0 Intake: Intake, IV Titration 90.167 Amount Diltiazem 125 mg In 90.167 Sodium Chloride 0.9% 100 ml @ 5 MG/HR 5 mls/hr IV .Q24H [facility] Rx#:[id number] Oral 243 245 0 Output: Urine 400 Other: # Voids 0 0 # Bowel Movements 0 0 - Labs CBC & Chem 7: 10/24/23 10:04 10/25/23 06:01 Labs: Abnormal Lab Results - Last 24 Hours (Table) 10/24/23 10/24/23 10/25/23 Range/Units 10:04 10:04 06:01 RBC 3.62 L (3.80-5.40) m/uL Hgb 10.9 L (11.4-16.0) gm/dL RDW 16.7 H (11.5-15.5) % Lymphocytes # 0.5 L (1.0-4.8) k/uL Sodium 134 L 135 L (137-145) mmol/L Glucose 228 H 117 H (74-99) mg/dL HDL Cholesterol 39.30 L (40.00-60.00) mg/dL Microbiology - Last 24 Hours (Table) 10/23/23 14:20 Blood Culture - Preliminary Blood 10/23/23 14:20 Blood Culture - Preliminary Blood
--- NOTE | 2023-10-25 12:04 | P.PN ---
Subjective Progress Note Date: 10/25/23 No new complaints. Pt is NSR, remains on cardizem gtt, but slowly being weaned by cardiology, metoprolol being increased. Gen: in no apparent distress, resting comfortably in bed Eyes: PERRL, no scleral injection or icterus HENT: normocephalic, atraumatic, good hearing acuity, moist mucous membranes Neck: no tracheal deviation, full range of motion Resp: good air exchange, breathing comfortably with no accessory muscle use, no tactile fremitus, fine crackles in the posterior lung lemus CVS: good distal perfusion x 4, no pitting edema, tachycardic without appreciable murmurs GI: soft, NTTP, ND, no hepatosplenomegaly : no suprapubic tenderness, no CVAT, tran catheter not present MSK: no clubbing, no cyanosis, no noted contractures of extremities Skin: no noted rashes, petechiae; temperature of skin is appropriate Neuro: moving all extremities without signs of weakness, CN II-XII intact Psych: cooperative, euthymic mood, insight and judgment intact Hospital Course: 78-year-old with medical history of atrial flutter/fibrillation on Eliquis, metastatic breast cancer, mitral valve prolapse status postrepair, hypertension, hyperlipidemia presented for evaluation of dyspnea on exertion as well as palpitations. In the emergency room, patient was afebrile, 111/52, heart rate 142, 98% on 2 L of nasal cannula. CBC is unremarkable. Basic metabolic panel shows sodium of 134. Liver function tests are unremarkable. BNP was 505. Troponin is less than 0.012. Lactic acid is 1.4. Influenza A, B, RSV, COVID were negative. EKG demonstrates atrial flutter. Chest x-ray shows normal-sized heart, congestion bilaterally. Assessment/plan: Paroxysmal atrial flutter with rapid ventricular response Acute on chronic hypoxemic respiratory failure Pulmonary congestion versus lymphangitic metastasis -Admit to inpatient, telemetry -Cardiology was consulted -CT of the chest with IV contrast, read is pending -Oxygen as needed -Cardizem drip -I resumed pts metoprolol, cardiology increased it to 100mg BID -Continue apixaban Metastatic breast cancer Hypertension Hyperlipidemia -Home medications reviewed and reconciled Patient is full code, warrants longer goals of care discussion Objective - Vital Signs Vital signs: Vital Signs Temp 98.2 F 10/25/23 11:39 Pulse 73 10/25/23 11:39 Resp 17 10/25/23 11:39 BP 112/75 10/25/23 11:39 Pulse Ox 98 10/25/23 11:39 FiO2 Intake & Output 10/24/23 10/25/23 10/25/23 18:59 06:59 18:59 Intake Total 243 335.167 0 Output Total 400 Balance -157 335.167 0 Intake: Intake, IV Titration 90.167 Amount Diltiazem 125 mg In 90.167 Sodium Chloride 0.9% 100 ml @ 5 MG/HR 5 mls/hr IV .Q24H [facility] Rx#:[id number] Oral 243 245 0 Output: Urine 400 Other: # Voids 0 0 # Bowel Movements 0 0 - Labs CBC & Chem 7: 10/24/23 10:04 10/25/23 06:01 Labs: Abnormal Lab Results - Last 24 Hours (Table) 10/24/23 10/25/23 Range/Units 10:04 06:01 Sodium 135 L (137-145) mmol/L Glucose 117 H (74-99) mg/dL HDL Cholesterol 39.30 L (40.00-60.00) mg/dL Microbiology - Last 24 Hours (Table) 10/23/23 14:20 Blood Culture - Preliminary Blood 10/23/23 14:20 Blood Culture - Preliminary Blood
[2023-10-25 12:15] VITALS: BP 112/75; TEMP 98.2
[2023-10-25 14:13] VITALS: PULSE 73
--- NOTE | 2023-10-25 16:43 | P.DS ---
Providers Date of admission: 10/23/23 15:42 Expected date of discharge: 10/25/23 Attending physician: Can Mercedes MD Consults: 10/23/23 15:40 Consult Physician Urgent Consulting Provider: [facility] Consult Reason/Comments: A-fib with rapid ventricular response Do you want consulting provider notified?: Yes Primary care physician: Alex Norwood Hospital Course: Paroxysmal atrial flutter with rapid ventricular response Acute on chronic hypoxemic respiratory failure Pulmonary congestion versus lymphangitic metastasis Metastatic breast cancer Hypertension Hyperlipidemia Gen: in no apparent distress, resting comfortably in bed Eyes: PERRL, no scleral injection or icterus HENT: normocephalic, atraumatic, good hearing acuity, moist mucous membranes Neck: no tracheal deviation, full range of motion Resp: good air exchange, breathing comfortably with no accessory muscle use, no tactile fremitus, fine crackles in the posterior lung lemus CVS: good distal perfusion x 4, no pitting edema, tachycardic without appreciable murmurs GI: soft, NTTP, ND, no hepatosplenomegaly : no suprapubic tenderness, no CVAT, tran catheter not present MSK: no clubbing, no cyanosis, no noted contractures of extremities Skin: no noted rashes, petechiae; temperature of skin is appropriate Neuro: moving all extremities without signs of weakness, CN II-XII intact Psych: cooperative, euthymic mood, insight and judgment intact Hospital Course: 78-year-old with medical history of atrial flutter/fibrillation on Eliquis, metastatic breast cancer, mitral valve prolapse status postrepair, hypertension, hyperlipidemia presented for evaluation of dyspnea on exertion as well as palpitations. In the emergency room, patient was afebrile, 111/52, heart rate 142, 98% on 2 L of nasal cannula. CBC is unremarkable. Basic metabolic panel shows sodium of 134. Liver function tests are unremarkable. BNP was 505. Troponin is less than 0.012. Lactic acid is 1.4. Influenza A, B, RSV, COVID were negative. EKG demonstrates atrial flutter. Chest x-ray shows normal-sized heart, congestion bilaterally. Pt admitted and treated on cardizem gtt. Cardiology consulted, and uptitrated pt's home medications. Pt converted to NSR and had cardizem weaned off. Pt remained in NSR with discontinuation of cardizem. Discharged hoem with cardiology, PCP, and oncology f/u. I spent 34 minutes coordinating this discharge on 10/24 Patient Condition at Discharge: Good Plan - Discharge Summary New Discharge Prescriptions: Continue Apixaban [Eliquis] 5 mg PO BID HYDROcodone/APAP 10-325MG [Haw[place] 10-325] 1 tab PO TID Pramipexole Di-HCl [Mirapex] 0.5 mg PO BID Herceptin Hylecta 1 dose IVPB Q21D Loperamide HCl [Imodium A-D] 2 mg PO DAILY Ondansetron [Zofran] 4 mg PO Q4H PRN PRN Reason: Nausea Cyclobenzaprine [Flexeril] 10 mg PO TID PRN PRN Reason: Muscle Spasm PACLitaxeL [Taxol] 1 dose IVPB Umeclidinium Brm/Vilanterol Tr [Anoro Ellipta 62.5-25 Mcg INH] 1 puff INHALATION RT-DAILY Albuterol Sulfate [Ventolin HFA] 2 puff INHALATION RT-QID PRN PRN Reason: Shortness Of Breath Changed Metoprolol Tartrate [Lopressor] 100 mg PO BID 90 Days #180 tab Discharge Medication List Apixaban [Eliquis] 5 mg PO BID 03/05/20 [History] HYDROcodone/APAP 10-325MG [Hawth[place] 10-325] 1 tab PO TID 03/05/20 [History] Pramipexole Di-HCl [Mirapex] 0.5 mg PO BID 03/05/20 [History] Cyclobenzaprine [Flexeril] 10 mg PO TID PRN 10/02/22 [History] Albuterol Sulfate [Ventolin HFA] 2 puff INHALATION RT-QID PRN 09/24/23 [History] Herceptin Hylecta 1 dose IVPB Q21D 09/24/23 [History] Loperamide HCl [Imodium A-D] 2 mg PO DAILY 09/24/23 [History] Ondansetron [Zofran] 4 mg PO Q4H PRN 09/24/23 [History] PACLitaxeL [Taxol] 1 dose IVPB TU 09/24/23 [History] Umeclidinium Brm/Vilanterol Tr [Anoro Ellipta 62.5-25 Mcg INH] 1 puff INHALATION RT-DAILY 09/24/23 [History] Metoprolol Tartrate [Lopressor] 100 mg PO BID 90 Days #180 tab 10/25/23 [Rx] Follow up Appointment(s)/Referral(s): Kartik Palencia MD [STAFF PHYSICIAN] - 1 Week (keep your previously scheduled appt on 10/[address] Palencia) Alex Ortega MD [Primary Care Provider] - 1-2 days Patient Instructions/Handouts: A-fib (Atrial Fibrillation) (DC) Activity/Diet/Wound Care/Special Instructions: heart healthy diet activity limited until you see your physician Discharge Disposition: HOME SELF-CARE
== END 2023-10-25 14:55 | disposition home or self-care (01) | DRG 308 ==
LOC: EC 11:15 → 3SCARD 15:42
PROVIDERS: ADMIT Student in an Organized Health Care Education/Training Program; ATTEND Student in an Organized Health Care Education/Training Program
PROC: 3E033RZ Introduction of Antiarrhythmic into Peripheral Vein, Percutaneous Approach (ICD-10-PCS; principal; 2023-10-23)
DX: I48.92 Unspecified atrial flutter (principal); J96.21 Acute and chronic respiratory failure with hypoxia; C77.9 Secondary and unspecified malignant neoplasm of lymph node, unspecified; I48.0 Paroxysmal atrial fibrillation; C50.912 Malignant neoplasm of unspecified site of left female breast; J44.9 Chronic obstructive pulmonary disease, unspecified; I10 Essential (primary) hypertension; F32.A Depression, unspecified; I34.1 Nonrheumatic mitral (valve) prolapse; E78.5 Hyperlipidemia, unspecified; F41.9 Anxiety disorder, unspecified; I25.10 Atherosclerotic heart disease of native coronary artery without angina pectoris; G47.61 Periodic limb movement disorder; Z79.01 Long term (current) use of anticoagulants; Z79.891 Long term (current) use of opiate analgesic; Z79.633 Long term (current) use of mitotic inhibitor; Z79.899 Other long term (current) drug therapy; Z92.21 Personal history of antineoplastic chemotherapy; Z95.1 Presence of aortocoronary bypass graft; Z86.14 Personal history of Methicillin resistant Staphylococcus aureus infection; Z96.653 Presence of artificial knee joint, bilateral; Z87.891 Personal history of nicotine dependence; Z71.6 Tobacco abuse counseling; Z88.5 Allergy status to narcotic agent; Z82.49 Family history of ischemic heart disease and other diseases of the circulatory system
CPT/HCPCS: 36415; 71046; 71260; 80048; 80053; 80061; 83605; 83735; 83880; 84484; 85025; 85610; 85730; 87040; 87636; 93005; 94640; 94760; 96365; 96366; 96375; 99291

== ENCOUNTER → 2023-12-17 | Outpatient (CLI) | payer MEDICARE, BC ==
--- NOTE | 2023-12-18 09:43 | CA ---
Transthoracic Echo Report Name: Bobbi Perez Age: 78 Gender: F : 1945 Exam Date: 12/17/2023 15:22 Exam Location: [facility] Ht (in): 65 Wt (lb): 193 Ordering Physician: Gerson Goetz MD Attending/Referring Phys: Working Manager Polly Valle RDCS Procedure CPT: Indications: Z01.818 Chemo exposure Cardiac Hx: Technical Quality: Contrast 1: Total Dose (mL): Contrast 2: Total Dose (mL): MEASUREMENTS (Male / Female) Normal Values 2D ECHO LV Diastolic Diameter PLAX 3.8 cm 4.2 - 5.9 / 3.9 - 5.3 cm LV Systolic Diameter PLAX 2.8 cm IVS Diastolic Thickness 1.2 cm 0.6 - 1.0 / 0.6 - 0.9 cm LVPW Diastolic Thickness 0.9 cm 0.6 - 1.0 / 0.6 - 0.9 cm LV Relative Wall Thickness 0.6 RV Internal Dim ED PLAX 3.6 cm LA Systolic Diameter LX 4.0 cm 3.0 - 4.0 / 2.7 - 3.8 cm M-MODE Aortic Root Diameter MM 2.4 cm AV Cusp Separation MM 1.7 cm DOPPLER AV Peak Velocity 86.1 cm/s AV Peak Gradient 3.0 mmHg MV Area PHT 6.5 cm??? MV Deceleration Time 172.1 ms TR Peak Velocity 234.0 cm/s TR Peak Gradient 21.9 mmHg Right Ventricular Systolic Press 25.8 mmHg FINDINGS Left Ventricle Left ventricular ejection fraction is estimated at 50-55 %. Small left ventricular cavity. Mildly increased septal wall thickness. No obvious regional wall motion abnormalities. Right Ventricle Mild right ventricular dilatation. Right ventricular systolic pressure within normal limits. Right Atrium Right atrium not well visualized. Left Atrium Mildly increased left atrial diameter. Mitral Valve Structurally normal mitral valve. Mild mitral annular calcification. Aortic Valve Trileaflet aortic valve. Aortic valve sclerosis. No aortic valve stenosis or regurgitation. Tricuspid Valve Structurally normal tricuspid valve. Mild tricuspid regurgitation. Pulmonic Valve Structurally normal pulmonic valve. Trace pulmonic regurgitation. Pericardium No pericardial effusion. No pleural effusion. Aorta Normal size aortic root and proximal ascending aorta. CONCLUSIONS Patient is a tachycardic. Study is suboptimal however LV function appears to be fairly well-preserved in the range of 50%. There is mitral annular calcification and aortic valve sclerosis. No pericardial effusion Previewed by: Dr. Ismael Claire MD (Electronically Signed) Final Date: 18 Dec 2023 09:42
== END | disposition home or self-care (01) ==
LOC: RADECHMAIN 15:10
PROVIDERS: ATTEND Internal Medicine Hematology & Oncology
DX: Z01.818 Encounter for other preprocedural examination (principal); I34.81 Nonrheumatic mitral (valve) annulus calcification; I35.8 Other nonrheumatic aortic valve disorders; C50.112 Malignant neoplasm of central portion of left female breast; Z71.3 Dietary counseling and surveillance; R00.0 Tachycardia, unspecified
CPT/HCPCS: 93306

== ENCOUNTER → 2024-01-14 | Outpatient (CLI) | payer MEDICARE, BC ==
--- NOTE | 2024-01-16 13:19 | PE ---
EXAMINATION TYPE: PET CT fusion skull to thigh DATE OF EXAM: 01/14/2024 CLINICAL INDICATION:Female, 78 years old with history of C50.211 breast ca; TECHNIQUE: Following the intravenous administration of 8.15 mCi of F-18 FDG, whole body images are performed from the skull base to the midthigh. Images are reviewed on the computer in the coronal, a xial, and sagittal planes. Reconstructed rotating images are created on independent workstation and reviewed on the computer. A non-contrast CT is performed in conjunction with the PET scan. Glucose level 133 mg/dL CT DLP: 728 mGycm, Automated exposure control for dose reduction was used. COMPARISON: CT 10/23/2023, PET/CT 07/10/2023, MRI: None FINDINGS: Mediastinal SUV mean is 2.5. Hepatic parenchyma SUV mean is 3.3. There is diffuse metastatic disease throughout the exam. FDG avid lymph nodes at examples include: SKULL BASE AND NECK: * Right neck max SUV 10.6, previously 8.7. * Left neck max SUV 17.5, previously 17.5. CHEST, MEDIASTINUM, AND HILAR REGION: * Right supraclavicular region max SUV 5.3 previously 5.5. * Left supraclavicular region max SUV 9.8, previously 7.3. * Right axilla max SUV 10.9, previously 10.2. * Left axilla max SUV 13.9 previously 11.7. * Mediastinal: Subcarinal max SUV 9.0, left pulmonary hilum max SUV 10.2, right pulmonary hilum max SUV 8.1, right low paratracheal max SUV 11.4 * Left lower outer breast mass no longer visualized. * Uptake near the right breast implant anteriorly max SUV 3.6, previously 3.3. * Uptake in the left breast implant is SUV 5.4, previously 4.8. * Right internal mammary chain max SUV 10.0, previously 8.3. * Left internal mammary chain max SUV 10.7, previously 10.2. * Right epicardial fat max SUV 6.6, previously 5.9. ABDOMEN AND PELVIS: * Conglomerate lymphadenopathy around the pancreas remains present which blends in with adjacent phy siologic uptake within the bowel max SUV 13.1. * Peritoneal implant measuring 7 mm Max SUV 3.4, previously 4.8. * Right inguinal lymph nodes max SUV 13.4, previously 13.2. * Left inguinal lymph nodes max SUV 13.9, previously 12.1 * Diffuse retroperitoneal lymph nodes with increased metabolic activity. MUSCULOSKELETAL STRUCTURES: No suspicious radiotracer activity. OTHER CT: Bilaterally aphakia. Atherosclerosis of the carotid bifurcations, arterial vasculature and coronary arteries. Bilateral breast implants. Mitral valve repair changes. Gallbladder appears surgic ally absent. Right adrenal lipid rich adenoma. Fat-containing inguinal hernias bilaterally. IMPRESSION: 1. Progression of disease with diffuse metastatic disease with FDG avid lymph nodes in nearly every lymph node station involving the head, neck, thorax, abdomen and pelvis. 2. Left breast mass no longer visualized possibly surgically absent.
== END | disposition home or self-care (01) ==
LOC: RADPETMAIN 12:48
PROVIDERS: ATTEND Internal Medicine Hematology & Oncology
DX: C50.112 Malignant neoplasm of central portion of left female breast (principal); N63.20 Unspecified lump in the left breast, unspecified quadrant
CPT/HCPCS: 78815; A9552

== ENCOUNTER → 2024-07-21 | Outpatient (CLI) | payer MEDICARE, BC | END | disposition home or self-care (01) | LOC: RADPETMAIN 12:29 | PROVIDERS: ATTEND Internal Medicine Hematology & Oncology | DX: Z53.9 Procedure and treatment not carried out, unspecified reason (principal) ==

== ENCOUNTER → 2024-07-29 | Outpatient (CLI) | payer MEDICARE, BC ==
--- NOTE | 2024-08-01 10:34 | PE ---
EXAMINATION TYPE: PET CT fusion skull to thigh DATE OF EXAM: 07/29/2024 CLINICAL HISTORY: Metastatic Breast cancer progress study. Currently undergoing chemotherapy treatmen t. TECHNIQUE: Following the intravenous administration of 9.09 mCi of F-18 FDG, whole body images are performed from the skull base to the midthigh. Images are reviewed on the computer in the coronal, a xial, and sagittal planes. Reconstructed rotating images are created on independent workstation and reviewed on the computer. A non-contrast CT is performed in conjunction with the PET scan. Blood gl ucose level equals 138 COMPARISON: Prior PET/CT January 14, 2024 and older studies. FINDINGS: There is diffuse metastatic disease throughout the exam. FDG avid lymph nodes at examples include: SKULL BASE AND NECK: * Right neck max SUV 7.33, previously 10.62. * Left neck max SUV 12.17, previously 17.5. CHEST, MEDIASTINUM, AND HILAR REGION: * Right axilla max SUV 6.26, previously 10.93. * Left axilla max SUV 10.13 inferiorly previously 13.87. * Mediastinal: Subcarinal max SUV 8.7 prior 9.0, left pulmonary hilum max SUV 9.4 prior10.85 * Uptake near the right breast implant anteriorly max now less then 2.5 prior max SUV 3.6 ABDOMEN AND PELVIS: * Conglomerate lymphadenopathy around the pancreas remains present which blends in with adjacent phy siologic uptake within the bowel max SUV 9/92 near pancreatic head decreased from 15.15 on prior. * Right inguinal lymph nodes max SUV 8.9, previously 13.4. * Left inguinal lymph nodes max SUV 9.95, previously 14.5 MUSCULOSKELETAL STRUCTURES: No suspicious radiotracer activity. OTHER CT: Bilaterally aphakia. Coronary artery calcifications redemonstrated. Bilateral breast implan ts. Mitral valve repair changes. Gallbladder appears surgically absent. Right adrenal 1.7 cm lipid ri ch adenoma redemonstrated. IMPRESSION: Partial positive treatment response as detailed above. [facility], , 08/01/2024 10:32 AM
== END | disposition home or self-care (01) ==
LOC: RADPETMAIN 14:19
PROVIDERS: ATTEND Internal Medicine Hematology & Oncology
DX: C50.211 Malignant neoplasm of upper-inner quadrant of right female breast (principal)
CPT/HCPCS: 78815; A9552

== ENCOUNTER → 2024-08-10 | Outpatient (CLI) | payer MEDICARE, BC ==
--- NOTE | 2024-08-11 13:25 | CA ---
Transthoracic Echo Report Name: Bobbi Perez Age: 79 Gender: F : 1945 Exam Date: 08/10/2024 14:02 Exam Location: [facility] Ht (in): 65 Wt (lb): 165 Ordering Physician: Gerson Goetz MD Attending/Referring Phys: Senior C Web Developer Reina Williamson RDCS Procedure CPT: Indications: Z01.818 Pre-chemo Cardiac Hx: Technical Quality: Fair Contrast 1: Total Dose (mL): Contrast 2: Total Dose (mL): MEASUREMENTS (Male / Female) Normal Values 2D ECHO LV Diastolic Diameter PLAX 2.9 cm 4.2 - 5.9 / 3.9 - 5.3 cm LV Systolic Diameter PLAX 1.8 cm IVS Diastolic Thickness 1.1 cm 0.6 - 1.0 / 0.6 - 0.9 cm LVPW Diastolic Thickness 1.2 cm 0.6 - 1.0 / 0.6 - 0.9 cm LV Relative Wall Thickness 0.8 LVOT Diameter 2.1 cm LV Diastolic Volume MOD 4C 78.1 cm??? LV Systolic Volume MOD 4C 32.9 cm??? LV Ejection Fraction MOD 4C 57.9 % LV Cardiac Index MOD 4C 2008.6 cm???/min???m??? LV Diastolic Length 4C 7.3 cm LV Systolic Length 4C 6.3 cm LA Volume 46.3 cm??? 18 - 58 / 22 - 52 cm??? LA Volume Index 24.8 cm???/m??? 16 - 28 cm???/m??? DOPPLER AV Peak Velocity 120.6 cm/s AV Peak Gradient 5.8 mmHg AV Mean Velocity 79.9 cm/s AV Mean Gradient 2.9 mmHg AV Velocity Time Integral 23.7 cm LVOT Peak Velocity 100.8 cm/s LVOT Peak Gradient 4.1 mmHg LVOT Velocity Time Integral 19.7 cm LVOT Stroke Volume 66.4 cm??? LVOT Stroke Volume Index 36.4 ml/m??? LVOT Cardiac Index 2945.7 cm???/min???m??? AV Area Cont Eq vti 2.8 cm??? AV Area Cont Eq pk 2.8 cm??? MV Peak Velocity 156.6 cm/s MV Peak Gradient 9.8 mmHg MV Mean Velocity 87.9 cm/s MV Mean Gradient 3.7 mmHg MV Velocity Time Integral 32.4 cm MV Area PHT 3.3 cm??? Mitral E Point Velocity 136.8 cm/s Mitral A Point Velocity 39.0 cm/s Mitral E to A Ratio 3.5 MV Deceleration Time 226.9 ms PV Peak Velocity 83.7 cm/s PV Peak Gradient 2.8 mmHg FINDINGS Left Ventricle Left ventricular ejection fraction is estimated at 55-60 %. Mildly increased septal wall thickness. Mildly increased posterior wall thickness. Left ventricular cavity size normal. No obvious regional wall motion abnormalities. Strain performed but not reported due to inadequate image quality. Right Ventricle Normal right ventricular size and function. Unable to estimate the right ventricular systolic pressure. Right Atrium Normal right atrial size. Left Atrium Normal left atrial size. Mitral Valve Mitral valve thickened. Mitral annular calcification. No evidence for mitral valve prolapse. Mild mitral stenosis. No mitral regurgitation. Aortic Valve Trileaflet aortic valve. No aortic valve stenosis or regurgitation. Tricuspid Valve Structurally normal tricuspid valve. No tricuspid stenosis. No tricuspid regurgitation. Pulmonic Valve Pulmonic valve not well visualized. No pulmonic stenosis. No pulmonic regurgitation. Pericardium No pericardial effusion. Aorta Aortic annulus normal. CONCLUSIONS Left ventricular ejection fraction 55-60% Mildly increased left ventricular wall thickening Mild to moderate mitral aortic calcification Mild mitral stenosis No pericardial effusion Previewed by: Dr. Steve Terry DO (Electronically Signed) Final Date: 10 August 2024 15:39
== END | disposition home or self-care (01) ==
LOC: RADECHMAIN 13:57
PROVIDERS: ATTEND Internal Medicine Hematology & Oncology
DX: Z01.818 Encounter for other preprocedural examination (principal); I70.0 Atherosclerosis of aorta
CPT/HCPCS: 93306

== ENCOUNTER → 2025-01-05 | Outpatient (CLI) | payer MEDICARE, BC ==
--- NOTE | 2025-01-07 20:50 | PE ---
EXAMINATION TYPE: PET CT fusion skull to thigh DATE OF EXAM: 01/05/2025 CLINICAL INDICATION:Female, 79 years old with history of C50.112 breast ca; TECHNIQUE: Following the intravenous administration of 10.95 mCi of F-18 FDG, whole body images are performed from the skull base to the midthigh. Images are reviewed on the computer in the coronal, axial, and sagittal planes. Reconstructed rotating images are created on independent workstation and reviewed on the computer. A non-contrast CT is performed in conjunction with the PET scan. Glucose level 107 mg/dL CT DLP: 598.6 mGycm, Automated exposure control for dose reduction was used. COMPARISON: CT 10/23/2023, 05/14/2023, PET/CT 07/29/2024, 01/14/2024, 07/10/2023, MRI: None FINDINGS: Mediastinal SUV mean is 1.6. Hepatic parenchyma SUV mean is 1.9. SKULL BASE AND NECK: Redemonstration of bilateral neck FDG avid lymph nodes with a maximum SUV of 9.2 on the right. There is a max SUV of 13.3 on the left. Previously 7.3 and 12.2 respectively. Symmetrical increased radiotracer uptake within the bilateral palatine tonsils and adenoids which is likely inflammatory. Demonstrates a max SUV of 9.0 CHEST, MEDIASTINUM, AND HILAR REGION: Similar prominent and enlarged FDG avid mediastinal lymphadenopathy with example including a precarin al 1.5 cm lymph node with a max SUV of 10.4, previously 8.7. Multiple similar prominent/enlarged bilateral axillary/subpectoral lymph nodes with example including a left axillary lymph node measuring up to 2.1 cm with a maximum SUV of 9.5, previously 13.9. Redemonstration of bilateral hilar FDG avid lymphadenopathy with the right measuring a maximum SUV of 7.8. The left demonstrates a maximum SUV of 8.8, previously 9.4. Redemonstration of bilateral internal mammary chain lymph nodes with a max SUV of 8.1 on the right. M ax SUV of 7.8 on the left. Focal region of radiotracer uptake along the inferior aspect of the left breast prosthesis with a max SUV of 2.4. Additional region of radiotracer uptake along the anterior aspect of the right breast pr osthesis with a maximum SUV of 2.3, previously 2.5. Few scattered subcentimeter nodules with radiotracer activity adjacent to the bilateral lower ribs. Couple of mildly enlarged right pericardial lymph nodes with maximum SUV of 4.1. ABDOMEN AND PELVIS: Stable size of enlarged and prominent bilateral inguinal lymph nodes. Example includes a left inguina l lymph node measuring up to 1.5 cm with a maximum SUV of 10.1, previously 10.0. Stable size of bilateral enlarged and prominent iliac chain lymph nodes with examples including a rig ht external iliac chain lymph node measuring up to 1.6 cm short axis with a max SUV of 12.0. Stable enlarged gastrohepatic and peripancreatic lymph nodes with the exam including a gastric hepati c lymph node measuring up to 2.6 cm with a max SUV 12.3, previously 9.9. Redemonstration of perirectal/presacral adenopathy with a maximum SUV of 8.6. Additional prominent FDG avid mesenteric lymph nodes/peritoneal implants identified with a max SUV of 3.8. Radiotracer activity identified within the intrahepatic biliary ductal system again with a max SUV of 7.4. Focal region of increased radiotracer activity within the gastric antrum measuring up to 4.2 cm with a maximum SUV of 10.5. No regions of increased uptake within the stomach including the gastric antrum demonstrating a maximum SUV of 8.1. This is favored to be physiologic. MUSCULOSKELETAL STRUCTURES: No suspicious radiotracer activity. OTHER CT: Bilateral aphakia. Bilateral carotid bulb calcifications. Subcentimeter right thyroid lobe hypodense nodule. Median sternotomy wires. Atherosclerotic calcification of the aorta and its branche s. Mild cardiomegaly. Bilateral breast prosthesis. Small bilateral pleural effusions with right great er than left. Mild coronary arterial calcifications. Mitral valvular replacement. Pericardial leads. Stable right adrenal gland 2.7 cm lipid rich adenoma. Post hysterectomy changes. Bilateral hip osteoa rthritic change. Multilevel degenerative changes of the spine. Bilateral shoulder osteoarthritic crowell ge. Gallbladder appears surgically absent. IMPRESSION: Extensive metastatic disease redemonstrated with overall no significant response to treatment as desc ribed above. [facility], , 01/07/2025 8:47 PM
== END | disposition home or self-care (01) ==
LOC: RADPETMAIN 12:36
PROVIDERS: ATTEND Internal Medicine Hematology & Oncology
DX: C50.112 Malignant neoplasm of central portion of left female breast (principal)
CPT/HCPCS: 78815; A9552